=== PATIENT | male | born 1970 | race Caucasian/White ===

== ENCOUNTER → 2018-09-17 09:31 | Outpatient (CLI) | payer MEDICARE, SELFPAY ==
[2018-09-17 09:03] VITALS: BMI 44.6
== END ==
PROVIDERS: Family Provider Family Medicine; PCP Family Medicine; Visit Provider Family Medicine
DX: E29.1 Testicular hypofunction (principal)
CPT/HCPCS: 36415; 84403

== ENCOUNTER → 2018-12-30 08:57 | Outpatient (CLI) | payer MEDICARE, SELFPAY ==
[2018-12-30 08:37] VITALS: BMI 44.6
[2018-12-30 12:49] LABS: Erythrocyte Sedimentation Rate 5 mm/hr (0-15)
== END ==
PROVIDERS: Family Provider Family Medicine; PCP Family Medicine; Visit Provider Family Medicine
DX: E29.1 Testicular hypofunction (principal); G89.29 Other chronic pain
CPT/HCPCS: 36415; 84403; 85652

== ENCOUNTER → 2019-03-31 10:58 | Outpatient (CLI) | payer MEDICARE, SELFPAY ==
[2019-03-31 10:24] VITALS: BMI 44.6
== END ==
PROVIDERS: Family Provider Family Medicine; PCP Family Medicine; Visit Provider Family Medicine
DX: E29.1 Testicular hypofunction (principal)
CPT/HCPCS: 36415; 84403

== ENCOUNTER → 2020-01-20 15:13 | Outpatient (CLI) | payer MEDICARE, SELFPAY ==
[2020-01-20 14:39] VITALS: BMI 44.6
[2020-01-20 16:55] LABS: Hematocrit 51.1 % (40-54); Hemoglobin 16.8 g/dL (13.0-16.5); Mean Corp Hgb Conc 32.9 g/dL (32-36); Mean Corpuscular Hgb 31.5 pg (27.0-32.0); Mean Corpuscular Volume 95.9 fL (80-94); Mean Platelet Vol. 11.1 fl (6.2-12.0); Platelet Count 245 K/mm3 (150-450); RBC Distribution Width CV 13.4 % (11.6-14.6); RBC Distribution Width SD 47.1 fl (35.1-43.9); Red Blood Count 5.33 M/mm3 (4.6-6.2); White Blood Count 7.2 K/mm3 (4.4-11.0)
[2020-01-20 17:17] LABS: PSA,Total- Diagnostic 0.59 ng/mL (0.0-4.0)
== END ==
PROVIDERS: PCP Family Medicine; Referring Provider Family Medicine; Visit Provider Family Medicine
DX: E78.2 Mixed hyperlipidemia (principal); N40.0 Benign prostatic hyperplasia without lower urinary tract symptoms; E29.1 Testicular hypofunction
CPT/HCPCS: 36415; 84153; 84403; 85027

== ENCOUNTER → 2020-07-26 10:23 | Outpatient (CLI) | payer MEDICARE, SELFPAY ==
[2020-07-26 12:39] LABS: Absolute Lymphocyte Count 1.04 X10^3/uL (0.83-4.51); Absolute Neutrophil Count 6.2 X10^3/uL (2.0-7.7); Basophil# 0.02 X10^3/uL; Basophil% 0.3 % (0-1); Eosinophil# 0.05 X10^3/uL; Eosinophils% 0.6 % (0-5); Hematocrit 53.1 % (40-54); Lymphocyte # 1.04 X10^3/ul (4.0); Lymphocyte % 13.2 % (19-41); Mean Corp Hgb Conc 34.1 g/dL (32-36); Mean Corpuscular Hgb 31.8 pg (27.0-32.0); Mean Corpuscular Volume 93.3 fL (80-94); Mean Platelet Vol. 11.4 fl (6.2-12.0); Monocyte# 0.54 X10^3/uL; Monocyte% 6.9 % (0-10); NRBC Flagged by Analyzer 0 % (0-5); Neutrophil # 6.18 X10^3/uL (2.7-7.7); Neutrophil % 78.4 % (47-70); Platelet Count 257 K/mm3 (150-450); RBC Distribution Width CV 12.6 % (11.6-14.6); Red Blood Count 5.69 M/mm3 (4.6-6.2); White Blood Count 7.9 K/mm3 (4.4-11.0)
[2020-07-26 12:55] LABS: ALB/GLOB Ratio 1.2 RATIO (0.9-2.4); AST(SGOT) 38 U/L (15-37); Alanine Aminotransfer ALT/SGPT 65 U/L (16-61); Albumin, Serum 4.4 g/dL (3.2-5.0); Alkaline Phosphatase 73 U/L (45-117); Anion Gap 5 (5-15); BUN 11 mg/dL (7-18); BUN/Creat Ratio 11.1 RATIO (10-20); Calcium,Total 9.2 mg/dL (8.5-10.1); Chloride 104 mmol/L (98-107); Creatinine, Serum 0.99 mg/dL (0.70-1.30); Differential Indicated SCAN CRITERIA MET; EST Glomerular Filtration Rate 85 mL/min (>60); Est Glom Filt Rate - Afr Amer 103 mL/min (>60); Globulin 3.6 g/dL (2.2-4.2); Glucose 95 mg/dL (74-106); Hemoglobin 18.1 g/dL (13.0-16.5); Potassium 4.2 mmol/L (3.5-5.1); Sodium Level 138 mmol/L (136-145)
[2020-07-27 13:59] LABS: Pathologist Review Reviewed
== END ==
PROVIDERS: Internal Medicine; PCP Family Medicine; Referring Provider Family Medicine; Visit Provider Family Medicine
DX: I10 Essential (primary) hypertension (principal); E29.1 Testicular hypofunction
CPT/HCPCS: 36415; 80053; 84403; 85025

== ENCOUNTER → 2020-11-07 14:02 | Outpatient (CLI) | payer MEDICARE, SELFPAY ==
[2020-11-07 13:29] VITALS: BMI 46.1
[2020-11-07 15:49] LABS: Absolute Lymphocyte Count 0.86 X10^3/uL (0.83-4.51); Basophil# 0.03 X10^3/uL; Basophil% 0.3 % (0-1); Eosinophil# 0.06 X10^3/uL; Eosinophils% 0.6 % (0-5); Hematocrit 50.3 % (40-54); Hemoglobin 16.8 g/dL (13.0-16.5); Lymphocyte # 0.86 X10^3/ul (0.83-4.51); Mean Corp Hgb Conc 33.4 g/dL (32-36); Mean Corpuscular Hgb 32.1 pg (27.0-32.0); Monocyte# 0.62 X10^3/uL; Monocyte% 6.5 % (0-10); NRBC Flagged by Analyzer 0 % (0-5); Neutrophil # 7.97 X10^3/uL (2.7-7.7); Neutrophil % 83.1 % (47-70); Platelet Count 238 K/mm3 (150-450); RBC Distribution Width CV 13.2 % (11.6-14.6); RBC Distribution Width SD 47.2 fl (35.1-43.9); Red Blood Count 5.24 M/mm3 (4.6-6.2); White Blood Count 9.6 K/mm3 (4.4-11.0)
[2020-11-07 16:16] LABS: Anion Gap 5 (5-15); BUN 12 mg/dL (7-18); Calcium,Total 9.1 mg/dL (8.5-10.1); Chloride 102 mmol/L (98-107); EST Glomerular Filtration Rate 84 mL/min (>60); Est Glom Filt Rate - Afr Amer 101 mL/min (>60); Glucose 84 mg/dL (74-106); Potassium 4.1 mmol/L (3.5-5.1); Sodium Level 138 mmol/L (136-145)
== END ==
PROVIDERS: PCP Family Medicine; Referring Provider Family Medicine; Visit Provider Family Medicine
DX: L93.0 Discoid lupus erythematosus (principal); I10 Essential (primary) hypertension
CPT/HCPCS: 36415; 80048; 85025

== ENCOUNTER → 2021-02-06 09:02 | Outpatient (CLI) | payer MEDICARE, SELFPAY | PROVIDERS: PCP Family Medicine; Referring Provider Family Medicine; Visit Provider Family Medicine | DX: E29.1 Testicular hypofunction (principal) | CPT/HCPCS: 36415; 84403 ==

== ENCOUNTER → 2021-05-08 09:55 | Outpatient (CLI) | payer MEDICARE, SELFPAY ==
[2021-05-08 12:21] LABS: Absolute Lymphocyte Count 1.46 X10^3/uL (0.83-4.51); Absolute Neutrophil Count 8.1 X10^3/uL (2.0-7.7); Basophil# 0.04 X10^3/uL; Basophil% 0.4 % (0-1); Eosinophil# 0.07 X10^3/uL; Eosinophils% 0.7 % (0-5); Hematocrit 49.3 % (40-54); Hemoglobin 16.6 g/dL (13.0-16.5); Lymphocyte # 1.46 X10^3/ul (0.83-4.51); Lymphocyte % 13.9 % (19-41); Mean Corp Hgb Conc 33.7 g/dL (32-36); Mean Corpuscular Hgb 31.9 pg (27.0-32.0); Mean Corpuscular Volume 94.8 fL (80-94); Mean Platelet Vol. 10.8 fl (6.2-12.0); Monocyte# 0.77 X10^3/uL; Monocyte% 7.3 % (0-10); NRBC Flagged by Analyzer 0 % (0-5); Neutrophil % 77.1 % (47-70); Platelet Count 310 K/mm3 (150-450); RBC Distribution Width CV 13.2 % (11.6-14.6); RBC Distribution Width SD 46.3 fl (35.1-43.9); White Blood Count 10.5 K/mm3 (4.4-11.0)
[2021-05-08 12:36] LABS: AST(SGOT) 32 U/L (15-37); Alanine Aminotransfer ALT/SGPT 50 U/L (16-61); Alkaline Phosphatase 68 U/L (45-117); Anion Gap 7 (5-15); BUN 11 mg/dL (7-18); BUN/Creat Ratio 12.7 RATIO (10-20); Calcium,Total 9.1 mg/dL (8.5-10.1); Chloride 101 mmol/L (98-107); Creatinine, Serum 0.86 mg/dL (0.70-1.30); EST Glomerular Filtration Rate 99 mL/min (>60); Est Glom Filt Rate - Afr Amer 120 mL/min (>60); Globulin 3.9 g/dL (2.2-4.2); Glucose 93 mg/dL (74-106); PSA,Total- Diagnostic 0.64 ng/mL (0.0-4.0); Potassium 3.9 mmol/L (3.5-5.1); Protein, Total 7.9 g/dL (6.4-8.2); Sodium Level 139 mmol/L (136-145)
== END ==
PROVIDERS: PCP Family Medicine; Referring Provider Family Medicine; Visit Provider Family Medicine
DX: J84.117 Desquamative interstitial pneumonia (principal); I10 Essential (primary) hypertension; E29.1 Testicular hypofunction
CPT/HCPCS: 36415; 80053; 84153; 85025

== ENCOUNTER 2021-08-07 09:28 | Outpatient (CLI) | payer MEDICARE, SELFPAY | END 2021-08-07 23:59 | disposition home or self-care (01) | PROVIDERS: PCP Family Medicine; Referring Provider Family Medicine; Visit Provider Family Medicine | DX: E29.1 Testicular hypofunction (principal) | CPT/HCPCS: 36415; 84403 ==

== ENCOUNTER → 2021-10-23 | Outpatient (CLI) | payer MEDICARE, SELFPAY ==
[2021-10-23 12:08] LABS: Absolute Lymphocyte Count 1.92 X10^3/uL (0.83-4.51); Absolute Neutrophil Count 6.3 X10^3/uL (2.0-7.7); Basophil# 0.03 X10^3/uL; Basophil% 0.3 % (0-1); Eosinophil# 0.08 X10^3/uL; Eosinophils% 0.9 % (0-5); Hematocrit 46.4 % (40-54); Lymphocyte # 1.92 X10^3/ul (0.83-4.51); Lymphocyte % 21.8 % (19-41); Mean Corp Hgb Conc 34.5 g/dL (32-36); Mean Corpuscular Hgb 31.5 pg (27.0-32.0); Mean Corpuscular Volume 91.3 fL (80-94); Mean Platelet Vol. 11.1 fl (6.2-12.0); Monocyte% 5.7 % (0-10); NRBC Flagged by Analyzer 0 % (0-5); Neutrophil # 6.25 X10^3/uL (2.7-7.7); Neutrophil % 71.1 % (47-70); Platelet Count 271 K/mm3 (150-450); RBC Distribution Width CV 12.9 % (11.6-14.6); RBC Distribution Width SD 43.2 fl (35.1-43.9); Red Blood Count 5.08 M/mm3 (4.6-6.2); White Blood Count 8.8 K/mm3 (4.4-11.0)
== END | disposition home or self-care (01) ==
LOC: BIMLAB 10:03
PROVIDERS: Internal Medicine; PCP Family Medicine; Referring Provider Family Medicine; Visit Provider Family Medicine
DX: E29.1 Testicular hypofunction (principal)
CPT/HCPCS: 36415; 84403; 85025

== ENCOUNTER → 2021-11-23 | Outpatient (CLI) | payer MEDICARE, SELFPAY | END | disposition home or self-care (01) | LOC: BIMLAB 08:05 | PROVIDERS: PCP Family Medicine; Referring Provider Family Medicine; Visit Provider Family Medicine | DX: E29.1 Testicular hypofunction (principal) | CPT/HCPCS: 36415; 84403 ==

== ENCOUNTER → 2022-03-13 | Outpatient (CLI) | payer MEDICARE, SELFPAY ==
[2022-03-13 12:42] LABS: Absolute Lymphocyte Count 3.71 X10^3/uL (0.83-4.51); Absolute Neutrophil Count 4.7 X10^3/uL (2.0-7.7); Basophil# 0.04 X10^3/uL; Basophil% 0.4 % (0-1); Eosinophil# 0.07 X10^3/uL; Eosinophils% 0.7 % (0-5); Hematocrit 49.1 % (40-54); Lymphocyte # 3.71 X10^3/ul (0.83-4.51); Lymphocyte % 39.4 % (19-41); Mean Corp Hgb Conc 32.6 g/dL (32-36); Mean Corpuscular Hgb 31.2 pg (27.0-32.0); Mean Corpuscular Volume 95.7 fL (80-94); Mean Platelet Vol. 10.8 fl (6.2-12.0); Monocyte# 0.89 X10^3/uL; Monocyte% 9.5 % (0-10); NRBC Flagged by Analyzer 0 % (0-5); Neutrophil # 4.66 X10^3/uL (2.7-7.7); Neutrophil % 49.6 % (47-70); Platelet Count 368 K/mm3 (150-450); RBC Distribution Width CV 13.2 % (11.6-14.6); RBC Distribution Width SD 47.1 fl (35.1-43.9); Red Blood Count 5.13 M/mm3 (4.6-6.2); White Blood Count 9.4 K/mm3 (4.4-11.0)
== END | disposition home or self-care (01) ==
LOC: BIMLAB 09:49
PROVIDERS: PCP Family Medicine; Referring Provider Family Medicine; Visit Provider Family Medicine
DX: I10 Essential (primary) hypertension (principal); E29.1 Testicular hypofunction
CPT/HCPCS: 36415; 84403; 85025

== ENCOUNTER → 2022-06-19 | Outpatient (CLI) | payer MEDICARE, SELFPAY ==
[2022-06-19 13:15] LABS: ALB/GLOB Ratio 1.4 RATIO (0.9-2.4); AST(SGOT) 30 U/L (15-37); Alanine Aminotransfer ALT/SGPT 56 U/L (16-61); Albumin, Serum 4.4 g/dL (3.2-5.0); Alkaline Phosphatase 62 U/L (45-117); Anion Gap 7 (5-15); BUN 12 mg/dL (7-18); BUN/Creat Ratio 13.3 RATIO (10-20); Calcium,Total 8.7 mg/dL (8.5-10.1); Chloride 106 mmol/L (98-107); EST Glomerular Filtration Rate 94 mL/min (>60); Est Glom Filt Rate - Afr Amer 113 mL/min (>60); Globulin 3.1 g/dL (2.2-4.2); Glucose 91 mg/dL (74-106); Potassium 4.1 mmol/L (3.5-5.1); Protein, Total 7.5 g/dL (6.4-8.2); Sodium Level 138 mmol/L (136-145)
== END | disposition home or self-care (01) ==
LOC: BIMLAB 10:02
PROVIDERS: PCP Family Medicine; Referring Provider Family Medicine; Visit Provider Family Medicine
DX: I10 Essential (primary) hypertension (principal); E29.1 Testicular hypofunction
CPT/HCPCS: 36415; 80053; 84403

== ENCOUNTER → 2022-09-17 | Outpatient (CLI) | payer MEDICARE, SELFPAY ==
[2022-09-17 15:23] LABS: Absolute Lymphocyte Count 1.78 X10^3/uL (0.83-4.51); Absolute Neutrophil Count 6.2 X10^3/uL (2.0-7.7); Basophil# 0.03 X10^3/uL; Basophil% 0.3 % (0-1); Eosinophil# 0.03 X10^3/uL; Eosinophils% 0.3 % (0-5); Hematocrit 51.2 % (40-54); Hemoglobin 16.8 g/dL (13.0-16.5); Lymphocyte # 1.78 X10^3/ul (0.83-4.51); Lymphocyte % 20.6 % (19-41); Mean Corp Hgb Conc 32.8 g/dL (32-36); Mean Corpuscular Hgb 30.9 pg (27.0-32.0); Mean Corpuscular Volume 94.1 fL (80-94); Mean Platelet Vol. 11.1 fl (6.2-12.0); Monocyte# 0.56 X10^3/uL; Monocyte% 6.5 % (0-10); NRBC Flagged by Analyzer 0 % (0-5); Neutrophil # 6.19 X10^3/uL (2.7-7.7); Neutrophil % 71.8 % (47-70); Platelet Count 295 K/mm3 (150-450); RBC Distribution Width CV 13.5 % (11.6-14.6); RBC Distribution Width SD 46.6 fl (35.1-43.9); Red Blood Count 5.44 M/mm3 (4.6-6.2); White Blood Count 8.6 K/mm3 (4.4-11.0)
[2022-09-17 15:34] LABS: PSA,Total- Diagnostic 0.93 ng/mL (0.0-4.0)
== END | disposition home or self-care (01) ==
LOC: BIMLAB 12:03
PROVIDERS: PCP Family Medicine; Referring Provider Family Medicine; Visit Provider Family Medicine
DX: E29.1 Testicular hypofunction (principal); N40.1 Benign prostatic hyperplasia with lower urinary tract symptoms; R35.1 Nocturia; I10 Essential (primary) hypertension
CPT/HCPCS: 36415; 84153; 84403; 85025

== ENCOUNTER → 2023-06-25 | Outpatient (CLI) | payer MEDICARE, SELFPAY ==
--- OUTSIDE RECORDS SUMMARY | 2023-06-25 12:27 | XMS RPT_ITS | CCD ---
Author Name Unknown Address [address] [place] [address] Organization [facility] Care Team Providers Care Button Spindler Name Role Phone Brown DO, Jennyfer R Primary Care Provider Mark Sanchez MD Unavailable Brown, Jennyfer R Primary Care Provider BROWN, JENNYFER Primary Care Unavailable YNES HA Attending Unavailable HIGHLAND, JOSE B Referring Unavailable BROWN, JENNYFER R Primary Care Unavailable HIGHLAND, JOSE B Referring Unavailable BROWN, JENNYFER R Primary Care Unavailable Brown DO, Jennyfer R Primary Care Provider Mark Sanchez MD Unavailable [phone] BROWN, JENNYFER R Primary Care Unavailable HIGHLAND, JOSE B Referring Unavailable BROWN, JENNYFER R Primary Care Unavailable GLENNIE, GELA Referring Unavailable BROWN, JENNYFER R Primary Care Unavailable GLENNIE, GELA Referring Unavailable BROWN, JENNYFER R Primary Care Unavailable GLENNIE, GELA Referring Unavailable BROWN, JENNYFER R Primary Care Unavailable HIGHLAND, JOSE B Referring Unavailable BROWN, JENNYFER R Primary Care Unavailable AIDENIE GELA Attending Unavailable BROWN, JENNYFER R Primary Care Unavailable HIGHLAND, JOSE B Referring Unavailable BROWN, JENNYFER R Primary Care Unavailable HIGHLAND, JOSE B Referring Unavailable HIGHLAND, JOSE B Attending Unavailable BROWN, JENNYFER R Primary Care Unavailable HIGHLAND, JOSE B Referring Unavailable BROWN, JENNYFER R Primary Care Unavailable HIGHLAND, JOSE B Attending Unavailable HIGHLAND, JOSE B Referring Unavailable HIGHLAND, JOSE B Referring Unavailable BROWN, JENNYFER R Primary Care Unavailable HIGHLAND, JOSE B Attending Unavailable BROWN, JENNYFER R Primary Care Unavailable HIGHLAND, JOSE B Referring Unavailable BROWN, JENNYFER R Primary Care Unavailable BROWN, JENNYFER R Primary Care Unavailable HIGHLAND, JOSE B Referring Unavailable BROWN, JENNYFER R Primary Care Unavailable BRAD, JOSE B Referring Unavailable GELA JORDAN Referring Unavailable BROWNJENNYFER R Primary Care Unavailable BROWNJENNYFER R Primary Care Unavailable BRAD, JOSE B Referring Unavailable BROWNJENNYFER R Primary Care Unavailable MARIBELAND, JOSE B Attending Unavailable BRAD, JOSE B Referring Unavailable GELA JORDAN Attending Unavailable BROWNLUCEROJENNYFER R Primary Care Unavailable BROWN, JENNYFER R Primary Care Unavailable BRAD, JOSE B Referring Unavailable TOSHIAGELA EVANGELISTA Referring Unavailable BROWNLUCEROJENNYFER R Primary Care Unavailable BROWN, JENNYFER R Primary Care Unavailable EDDYVILLE, JOSE B Referring Unavailable BROWNLUCEROJENNYFER R Primary Care Unavailable EDDYVILLE, JOSE B Referring Unavailable Medications Current Medications Medication Drug Class(es) Dates Sig (Normalized) Sig (Original) acetaminophen 325 mg oral tablet (2 sources) Start: 09-05-2021 End: 09-08-2021 acetaminophen 650 mg tab(s) (TYLENOL) diphenhydrAMINE hydrochloride 25 mg oral capsule (4 sources) Histamine-1 Receptor Antagonist Start: 09-05-2021 End: 09-08-2021 diphenhydrAMINE 50 mg (BENADRYL) Completed/Discontinued Medications Medication Drug Class(es) Dates Sig (Normalized) Sig (Original) acetaminophen 325 mg / oxyCODONE hydrochloride 7.5 mg oral tablet (20 sources) Opioid Agonist End: 02-26-2023 take 1 tablet by mouth every twelve hours as needed oxyCODONE-acetamino phen (PERCOCET) 7.5-325 mg tablet Take 1 tablet by mouth every 12 hours as needed for pain. 0 02/26/2023 Discontinued Problems Active Problems Problem Classification Problem Date Documented Date Episodic/Chronic Cardiac dysrhythmias (20 sources) Tachycardia; Translations: [Tachycardia, unspecified] 11-18-2017 Episodic Open wounds of extremities (8 sources) Laceration of left ring finger; Translations: [Laceration without foreign body of left ring finger without damage to nail, initial encounter] Onset: 02-06-2023 02-06-2023 Episodic Osteoarthritis (2 sources) Arthritis; Translations: [Unspecified osteoarthritis, unspecified site] Chronic Other aftercare (3 sources) Taking high risk medication; Translations: [Other usp (current) drug therapy] Episodic Other aftercare (2 sources) Other usp (current) drug therapy; Translations: [High risk medication use] Onset: 05-03-2022 Episodic Other circulatory disease (1 source) Other specified symptoms and signs involving the circulatory and respiratory systems; Translations: [Other symptoms involving cardiovascular system] Episodic Other ear and sense organ disorders (1 source) Impacted cerumen of bilateral ears; Translations: [Impacted cerumen, bilateral] Episodic Other endocrine disorders (20 sources) Male hypogonadism; Translations: [Testicular hypofunction] Onset: 12-09-2018 12-09-2018 Chronic Other infections; including parasitic (1 source) Personal history of other infectious and parasitic diseases; Translations: [History of COVID-19] 02-26-2023 Episodic Other lower respiratory disease (20 sources) Desquamative interstitial pneumonia; 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] Onset: 03-28-2014 03-28-2014 Chronic Other lower respiratory disease (20 sources) Interstitial pneumonia; Translations: [Other specified interstitial pulmonary diseases] Onset: 03-28-2014 03-28-2014 Chronic Other lower respiratory disease (20 sources) Interstitial lung disease; Translations: [Interstitial pulmonary disease, unspecified] Onset: 09-20-2015 06-11-2021 Chronic Other lower respiratory disease (3 sources) Interstitial pulmonary disease, unspecified; Translations: [ILD (interstitial lung disease) (HCC)] Onset: 06-11-2021 Chronic Other lower respiratory disease (6 sources) Dyspnea; Translations: [Dyspnea, unspecified] Episodic Other lower respiratory disease (1 source) Chronic cough; Translations: [Chronic cough] 02-26-2023 Episodic Other nutritional; endocrine; and metabolic disorders (20 sources) Obesity; Translations: [Obesity, unspecified] Onset: 08-16-2015 06-11-2021 Chronic Other nutritional; endocrine; and metabolic disorders (1 source) Severe obesity; Translations: [Morbid (severe) obesity due to excess calories] 04-14-2023 Chronic Other upper respiratory disease (1 source) Nasal congestion; Translations: [Nasal congestion] 02-26-2023 Episodic Pulmonary heart disease (2 sources) Pulmonary hypertension; Translations: [Pulmonary hypertension, unspecified] Onset: 08-15-2022 Chronic Residual codes; unclassified (20 sources) Obstructive sleep apnea syndrome; Translations: [Obstructive sleep apnea (adult) (pediatric)] Onset: 09-20-2015 06-11-2021 Chronic Residual codes; unclassified (1 source) Patient encounter status; Translations: [Encounter for prophylactic measures, unspecified] Episodic Rheumatoid arthritis and related disease (20 sources) Inflammatory polyarthropathy; Translations: [Inflammatory polyarthropathy] Onset: 11-06-2017 11-06-2017 Chronic Systemic lupus erythematosus and connective tissue disorders (20 sources) Systemic lupus erythematosus; Translations: [Systemic lupus erythematosus, unspecified] Onset: 10-10-2014 10-10-2014 Chronic Past or Other Problems Problem Classification Problem Date Documented Date Episodic/Chronic Crushing injury or internal injury (20 sources) Acute lung injury; Translations: [Unspecified injury of lung, unspecified, initial encounter] Onset: 03-28-2014 03-28-2014 Episodic Malaise and fatigue (4 sources) Malaise and fatigue; Translations: [Other malaise] Onset: 08-07-2022 Episodic Other lower respiratory disease (1 source) Dyspnea, unspecified; Translations: [Dyspnea and respiratory abnormalities] Onset: 08-07-2022 Episodic Other lower respiratory disease (1 source) Other abnormalities of breathing; Translations: [Dyspnea and respiratory abnormalities] Onset: 08-07-2022 Episodic Respiratory failure; insufficiency; arrest (adult) (20 sources) Acute respiratory failure; Translations: [Acute respiratory failure with hypoxia] Onset: 06-10-2021 06-11-2021 Episodic Viral infection (20 sources) Disease caused by 2019-nCoV; Translations: [COVID-19] Onset: 06-11-2021 06-11-2021 Episodic Results Test Name Value Interpretation Reference Range Facil ity Vital Signs Date Time Vital Sign Value Performing Clinician Markos goodwin 04-14-2023 08:53-0400 Body temperature 97.59 [degF] Jose Walter MD Work Phone: [facility] 04-14-2023 08:53-0400 Body weight 140.61 kg Jose Walter MD Work Phone: [facility] 04-14-2023 08:53-0400 Diastolic blood pressure 84 mm[Hg] Jose Walter MD Work Phone: [facility] 04-14-2023 08:53-0400 Heart rate 105 /min Jose Walter MD Work Phone: [facility] 04-14-2023 08:53-0400 Respiratory rate 16 /min Jose Walter MD Work Phone: [facility] 04-14-2023 08:53-0400 SaO2% (BldA) [Mass fraction] 98 % Jose Walter MD Work Phone: [facility] 04-14-2023 08:53-0400 Systolic blood pressure 137 mm[Hg] Jose Walter MD Work Phone: [facility] 04-14-2023 07:00-0400 Body height 174 cm Pulm Addon Work Phone: [facility] 04-14-2023 07:00-0400 Body weight 140.62 kg Pulm Addon Work Phone: [facility] 02-06-2023 20:34-0400 Body temperature 97.81 [degF] Ynes Ha MD Work Phone: [facility] 02-06-2023 20:34-0400 Diastolic blood pressure 66 mm[Hg] Ynes Ha MD Work Phone: [facility] 02-06-2023 20:34-0400 Heart rate 109 /min Ynes Ha MD Work Phone: [facility] 02-06-2023 20:34-0400 Respiratory rate 18 /min Ynes Ha MD Work Phone: [facility] 02-06-2023 20:34-0400 SaO2% (BldA) [Mass fraction] 98 % Ynes Ha MD Work Phone: [facility] 02-06-2023 20:34-0400 Systolic blood pressure 110 mm[Hg] Ynes Ha MD Work Phone: [facility] 12-03-2022 11:24-0400 Body temperature 97.81 [degF] Jose Walter MD Work Phone: [facility] 12-03-2022 11:24-0400 Body weight 137.8 kg Pulm 2 Work Phone: [facility] 12-03-2022 11:24-0400 Diastolic blood pressure 88 mm[Hg] Jose Walter MD Work Phone: [facility] 12-03-2022 11:24-0400 Heart rate 95 /min Jose Walter MD Work Phone: [facility] 12-03-2022 11:24-0400 Respiratory rate 18 /min Jose Walter MD Work Phone: [facility] 12-03-2022 11:24-0400 SaO2% (BldA) [Mass fraction] 98 % Jose Walter MD Work Phone: [facility] 12-03-2022 11:24-0400 Systolic blood pressure 130 mm[Hg] Jose Walter MD Work Phone: [facility] 12-03-2022 10:00-0400 Body height 174 cm Pulm 2 Work Phone: [facility] 08-07-2022 13:02-0500 Body temperature 97.81 [degF] Jose Walter MD Work Phone: [facility] 08-07-2022 13:02-0500 Body weight 136.08 kg Jose Walter MD Work Phone: [facility] 08-07-2022 13:02-0500 Diastolic blood pressure 77 mm[Hg] Jose Walter MD Work Phone: [facility] 08-07-2022 13:02-0500 Heart rate 106 /min Jose Walter MD Work Phone: [facility] 08-07-2022 13:02-0500 Respiratory rate 18 /min Jose Walter MD Work Phone: [facility] 08-07-2022 13:02-0500 SaO2% (BldA) [Mass fraction] 96 % Jose Walter MD Work Phone: [facility] 08-07-2022 13:02-0500 Systolic blood pressure 106 mm[Hg] Jose Walter MD Work Phone: [facility] 08-07-2022 12:00-0500 Body height 173.8 cm Pulm 7 [facility] 08-07-2022 12:00-0500 Body weight 141 kg Pulm 7 [facility] 05-07-2022 12:43-0500 Body height 172.7 cm Gela Glennie INVENTORY TAKER.DIRECTOR HOME Work Phone: [facility] 05-07-2022 12:43-0500 Body temperature 96.91 [degF] Gela Glennie INVENTORY TAKER.DIRECTOR HOME Work Phone: [facility] 05-07-2022 12:43-0500 Body weight 144.24 kg Gela Glennie INVENTORY TAKER.DIRECTOR HOME Work Phone: [facility] 05-07-2022 12:43-0500 Diastolic blood pressure 81 mm[Hg] Gela Glennie INVENTORY TAKER.DIRECTOR HOME Work Phone: [facility] 05-07-2022 12:43-0500 Heart rate 96 /min Gela Glennie INVENTORY TAKER.DIRECTOR HOME Work Phone: [facility] 05-07-2022 12:43-0500 Respiratory rate 18 /min Gela Glennie INVENTORY TAKER.DIRECTOR HOME Work Phone: [facility] 05-07-2022 12:43-0500 SaO2% (BldA) [Mass fraction] 97 % Gela Glennie INVENTORY TAKER.DIRECTOR HOME Work Phone: [facility] 05-07-2022 12:43-0500 Systolic blood pressure 133 mm[Hg] Gela Glennie INVENTORY TAKER.DIRECTOR HOME Work Phone: [facility] 04-10-2022 13:32-0400 Body temperature 97.81 [degF] Nurse Nathan10 [facility] 04-10-2022 13:32-0400 Diastolic blood pressure 65 mm[Hg] Nurse Nathan10 [facility] 04-10-2022 13:32-0400 Heart rate 95 /min Nurse Nathan10 [facility] 04-10-2022 13:32-0400 Respiratory rate 22 /min Nurse A110 [facility] 04-10-2022 13:32-0400 SaO2% (BldA) [Mass fraction] 96 % Nurse A110 [facility] 04-10-2022 13:32-0400 Systolic blood pressure 124 mm[Hg] Nurse A110 [facility] 04-10-2022 08:09-0400 Body weight 142.88 kg Nurse 10 [facility] 02-20-2022 11:38-0400 Body height 172.7 cm Beth Ball INVENTORY TAKER.DIRECTOR HOME Work Phone: [facility] 02-20-2022 11:38-0400 Body temperature 98.1 [degF] Beth Ball INVENTORY TAKER.DIRECTOR HOME Work Phone: [facility] 02-20-2022 11:38-0400 Body weight 140.62 kg Beth Ball INVENTORY TAKER.DIRECTOR HOME Work Phone: [facility] 02-20-2022 11:38-0400 Diastolic blood pressure 85 mm[Hg] Beth Ball INVENTORY TAKER.DIRECTOR HOME Work Phone: [facility] 02-20-2022 11:38-0400 Heart rate 101 /min Beth Ball INVENTORY TAKER.DIRECTOR HOME Work Phone: [facility] 02-20-2022 11:38-0400 Respiratory rate 16 /min Beth Ball INVENTORY TAKER.DIRECTOR HOME Work Phone: [facility] 02-20-2022 11:38-0400 SaO2% (BldA) [Mass fraction] 97 % Beth Ball INVENTORY TAKER.DIRECTOR HOME Work Phone: [facility] 02-20-2022 11:38-0400 Systolic blood pressure 136 mm[Hg] Beth Ball INVENTORY TAKER.DIRECTOR HOME Work Phone: [facility] 01-21-2022 09:28-0400 Body height 172.7 cm Jose Walter MD Work Phone: [facility] 01-21-2022 09:28-0400 Body weight 139.1 kg Pulm 2 Work Phone: [facility] 01-21-2022 09:28-0400 Diastolic blood pressure 88 mm[Hg] Jose Walter MD Work Phone: [facility] 01-21-2022 09:28-0400 Heart rate 104 /min Jose Walter MD Work Phone: [facility] 01-21-2022 09:28-0400 Respiratory rate 18 /min Jose Walter MD Work Phone: [facility] 01-21-2022 09:28-0400 SaO2% (BldA) [Mass fraction] 96 % Jose Walter MD Work Phone: [facility] 01-21-2022 09:28-0400 Systolic blood pressure 123 mm[Hg] Jose Walter MD Work Phone: [facility] 01-21-2022 09:00-0400 Body height 174 cm Pul 2 Work Phone: [facility] 12-12-2021 12:09-0400 Body temperature 98.2 [degF] Nurse [address] 12-12-2021 12:09-0400 Diastolic blood pressure 78 mm[Hg] Nurse [address] 12-12-2021 12:09-0400 Heart rate 94 /min Nurse [address] 12-12-2021 12:09-0400 Respiratory rate 20 /min Nurse [address] 12-12-2021 12:09-0400 SaO2% (BldA) [Mass fraction] 99 % Nurse [address] 12-12-2021 12:09-0400 Systolic blood pressure 127 mm[Hg] Nurse [address] 12-12-2021 07:26-0400 Body weight 141.07 kg Nurse [address] 11-23-2021 15:55-0400 Body temperature 97.81 [degF] Nurse [address] 11-23-2021 15:55-0400 Diastolic blood pressure 79 mm[Hg] Nurse [address] 11-23-2021 15:55-0400 Heart rate 98 /min Nurse [address] 11-23-2021 15:55-0400 Respiratory rate 24 /min Nurse [facility] 11-23-2021 15:55-0400 SaO2% (BldA) [Mass fraction] 98 % Nurse A110 [facility] 11-23-2021 15:55-0400 Systolic blood pressure 137 mm[Hg] Nurse A110 [facility] 11-23-2021 10:30-0400 Body weight 139.25 kg Nurse A110 [facility] 10-22-2021 09:59-0400 Body height 175.3 cm Jose Walter MD Work Phone: [facility] 10-22-2021 09:59-0400 Body temperature 97.9 [degF] Jose Walter MD Work Phone: [facility] 10-22-2021 09:59-0400 Body weight 138.3 kg Pulm 4 [facility] 10-22-2021 09:59-0400 Diastolic blood pressure 89 mm[Hg] Jose Walter MD Work Phone: [facility] 10-22-2021 09:59-0400 Heart rate 103 /min Jose Walter MD Work Phone: [facility] 10-22-2021 09:59-0400 SaO2% (BldA) [Mass fraction] 98 % Jose Walter MD Work Phone: [facility] 10-22-2021 09:59-0400 Systolic blood pressure 132 mm[Hg] Jose Walter MD Work Phone: [facility] 10-22-2021 08:00-0400 Body height 174 cm Pulm 4 [facility] 09-05-2021 11:33-0400 Body height 175.3 cm Gela Glennie INVENTORY TAKER.DIRECTOR HOME Work Phone: [facility] 09-05-2021 11:33-0400 Body temperature 97.39 [degF] Gela Glennie INVENTORY TAKER.DIRECTOR HOME Work Phone: [facility] 09-05-2021 11:33-0400 Body weight 142.43 kg Gela Glennie INVENTORY TAKER.DIRECTOR HOME Work Phone: [facility] 09-05-2021 11:33-0400 Diastolic blood pressure 95 mm[Hg] Gela Glennie INVENTORY TAKER.DIRECTOR HOME Work Phone: [facility] 09-05-2021 11:33-0400 Heart rate 104 /min Gela Glennie INVENTORY TAKER.DIRECTOR HOME Work Phone: [facility] 09-05-2021 11:33-0400 Respiratory rate 18 /min Gela Glennie INVENTORY TAKER.DIRECTOR HOME Work Phone: [facility] 09-05-2021 11:33-0400 SaO2% (BldA) [Mass fraction] 95 % Gela Glennie INVENTORY TAKER.DIRECTOR HOME Work Phone: [facility] 09-05-2021 11:33-0400 Systolic blood pressure 138 mm[Hg] Gela Glennie INVENTORY TAKER.DIRECTOR HOME Work Phone: [facility] 09-05-2021 11:12-0400 Body temperature 97.9 [degF] Nurse 1 Work Phone: [facility] 09-05-2021 11:12-0400 Diastolic blood pressure 87 mm[Hg] Nurse 1 Work Phone: [facility] 09-05-2021 11:12-0400 Heart rate 103 /min Nurse 1 Work Phone: [facility] 09-05-2021 11:12-0400 Respiratory rate 20 /min Nurse 1 Work Phone: [facility] 09-05-2021 11:12-0400 SaO2% (BldA) [Mass fraction] 98 % Nurse 1 Work Phone: [facility] 09-05-2021 11:12-0400 Systolic blood pressure 144 mm[Hg] Nurse 1 Work Phone: [facility] Encounters Encounter Date Encounter Type Care Provider Facility Start: 04-24-2023 Telephone encounter Maribeth (Danie) [facility] [place] Procedures Date Procedure Procedure Detail Performing Clinician Start: 04-14-2023 INFLUENZA VACCINE, P RSV FREE, AGE 65+ YR, HIGH DOSE, QUADRIVALENT (FLUZONE HIGH-DOSE) Samir Quinones MD Work Phone: Start: 04-14-2023 Pulmonary stress testing Jose Walter MD Work Phone: Start: 02-06-2023 PB ED PLACEHOLDER Ynes Ha MD Work Phone: Start: 12-03-2022 End: 12-03-2022 Co diffusing capacity Jose Walter MD Work Phone: Start: 08-15-2022 Right heart cath o2 saturation & cardiac output Morgan Bo MD Work Phone: Start: 08-15-2022 Ct thorax w/o contra st material Jose Walter MD Work Phone: Start: 08-07-2022 Radiologic exam knee complete 4/more views Jose Walter MD Work Phone: Start: 08-07-2022 End: 08-07-2022 Brncdilat rspse spmtry pre&post-brncdilat admn Gela Jordan APRN.DIRECTOR HOME Work Phone: Start: 08-07-2022 Echo tthrc r-t 2d w/wom-mode compl spec&colr d Gela Jordan APRN.DIRECTOR HOME Work Phone: Start: 01-21-2022 Pulmonary stress testing Sanjuana Briones MD Work Phone: Start: 10-22-2021 End: 10-22-2021 Brncdilat rspse spmtry pre&post-brncdilat admn Jose Walter MD Work Phone: Start: 09-05-2021 Noninvasive ear/puls e oximetry multiple deter Gela Jordan APRN.DIRECTOR HOME Work Phone: Start: 09-05-2021 Brncdilat rspse spmt ry pre&post-brncdilat admn Glea Jordan APRN.DIRECTOR HOME Work Phone: Start: 09-05-2021 Echo tthrc r-t 2d w/wom-mode compl spec&colr d Gela Jordan APRN.DIRECTOR HOME Work Phone: Start: 11-01-2015 Adult depression scr eening assessment [facility] Work Phone: Start: 09-11-2005 Lipid 1996 panel - S enrrique or Plasma Gela Jordan APRN.DIRECTOR HOME Work Phone: Plan of Treatment Date Care Activity Detail Author Start: 02-06-2033 DTaP/Tdap/Td Vaccines (3 - Td or Tdap) DTaP/Tdap/Td Vaccines (3 - Td or Tdap) [facility] Start: 02-06-2033 Urine microalbumin profile DTaP,Tdap,Td Vaccine (3 - Td or Tdap) [facility] Start: 09-09-2030 Urine microalbumin profile [facility] Start: 04-14-2026 Diabetes Screening Diabetes Screening [facility] Start: 02-19-2026 Diabetes Screening Diabetes Screening [facility] Start: 12-03-2025 DIABETES SCREEN DIABETES SCREEN [facility] Start: 08-07-2025 DIABETES SCREEN DIABETES SCREEN [facility] Start: 05-03-2025 DIABETES SCREEN DIABETES SCREEN [facility] Start: 01-21-2025 DIABETES SCREEN DIABETES SCREEN [facility] Start: 09-05-2024 DIABETES SCREEN DIABETES SCREEN [facility] Start: 06-12-2024 DIABETES SCREEN DIABETES SCREEN [facility] Start: 02-14-2023 Covid-19 Vaccine ( season) Covid-19 Vaccine () [facility] Start: 02-14-2023 Influenza vaccination [facility] Start: 12-03-2022 End: 02-02-2023 C reactive protein [Mass/volume] in Serum or Plasma C-REACTIVE PROTEIN (CRP) Lab Routine Inflammatory polyarthritis (HCC) ILD (interstitial lung disease) (HCC) Expected: 12/03/2022, Expires: 02/02/2023 [facility] Work Phone: Immunizations Immunization Date Immunization Notes Care Provider Fa cility 04-14-2023 influenza (HD-IIV4) vaccine, age 65+ yr, high dose, quadrivalent, PF (FLUZONE HIGH-DOSE) Pullittle Violeta Work Phone: [facility] 02-06-2023 tetanus toxoid, redu patti diphtheria toxoid, and acellular pertussis vaccine, adsorbed Ynes Ha MD Work Phone: [facility] 03-01-2022 influenza, injectabl e, quadrivalent, preservative free Gela Jordan APRN.CNP Work Phone: [facility] 03-01-2022 influenza virus vaccine, unspecified formulation Ynes Ha MD Work Phone: [facility] 09-19-2020 COVID-19 vaccine, ag e 12+ yr (PFIZER-BIONTECH - PURPLE TOP) [facility] Work Phone: [facility] 09-09-2020 tetanus toxoid, redu patti diphtheria toxoid, and acellular pertussis vaccine, adsorbed [facility] Work Phone: [facility] 08-29-2020 COVID-19 vaccine, ag e 12+ yr (PFIZER-BIONTECH - PURPLE TOP) [facility] Work Phone: [facility] 06-02-2020 influenza, injectabl e, quadrivalent, preservative free [facility] Work Phone: [facility] 04-21-2019 influenza, injectabl e, quadrivalent, contains preservative [facility] Work Phone: [facility] 08-18-2018 pneumococcal conjuga te vaccine, 13 valent [facility] Work Phone: [facility] 02-17-2018 influenza, injectabl e, quadrivalent, contains preservative [facility] Work Phone: [facility] 05-30-2017 influenza, injectabl e, quadrivalent, contains preservative [facility] Work Phone: [facility] 05-16-2017 influenza virus vaccine, unspecified formulation [facility] Work Phone: [facility] 03-29-2016 influenza, injectabl e, quadrivalent, contains preservative [facility] Work Phone: [facility] 03-23-2015 influenza, injectabl e, quadrivalent, contains preservative [facility] Work Phone: [facility] 03-23-2015 influenza, seasonal, injectable [employer] Work Phone: [facility] Work Phone: 03-23-2015 pneumococcal polysaccharide vaccine, 23 valent [facility] Work Phone: [facility] Work Phone: NEGATED: Highlighted row has not occurred!02-17-2014 pneumococcal polysaccharide vaccine, 23 valent [facility] Work Phone: [facility] Payers Date Payer Category Payer Medicare MMO MEDICARE MMO MEDADVANTAGE O [id number] 2017-Present [phone] [address] [place] [address] [facility] [id number] 2017 Medicare [id number] 2017 Medicare [id number] Social History Date Type Detail Facility Start: 03-02-2014 End: 01-21-2022 Tobacco smoking status NHIS Ex-smoker [facility] Work Phone: End: 07-14-2007 History of tobacco use Current smoker [facility] Work Phone: End: 07-14-2007 History of tobacco use Cigarette Smoker [facility] Work Phone: Start: 03-02-2014 End: 12-03-2022 Cigarettes smoked current (pack per day) - Reported 1 [facility] Start: 03-02-2014 End: 01-21-2022 Tobacco use and exposure Smokeless tobacco non-user [facility] Work Phone: Start: 09-05-2021 End: 04-14-2023 Alcohol intake Current drinker of alcohol (finding) [facility] Start: 03-02-2014 History SDOH Alcohol Comment Socially [facility] Start: 04-21-2019 End: 01-21-2022 Tobacco Comment Smoked 1 ppd ~ 20 years; Denies Vaping [facility] Start: 1970 Sex Assigned At Not on file [facility] Start: 08-26-2021 End: 02-06-2023 Exposure to SARS-CoV-2 (event) Not sure [facility] Work Phone: Start: 12-03-2022 End: 02-26-2023 Tobacco use panel [facility] National Score (1-10 0), lower number is lower risk 56 [facility] Start: 02-06-2023 Tobacco smoking stat [facility] Tobacco smoking consumption unknown [facility] Clinical Notes 03-02-2014 to 04-24-2023 Telephone Encounter - Maribeth Boone - 04/24/2023 12:42 PM ESTPatient InstructionsJose Walter MD - 04/14/2023 9:14 AM Flory Quevedo RRT - 04/14/2023 7:44 AM EDTPatient Instructions Note Date & Type Note Facility 04-24-2023 Miscellaneous Notes Received encounter message from JORY Lopes) today 04/24/2023; [facility] called to follow up on PA send for Nasrin; called [facility] @ spoke with Jaqueline;advise Jaqueline no PA received and confirmed correct fax number to send PA request [phone]. documented in this encounter [facility] 04-14-2023 Note HNO ID: [id number] Author: Flory Steward RRT Service: ? Author Type: Registered Resp Therapist Type: Procedures Filed: 04/14/2023 2:01 PM Note Text: RESPIRATORY THERAPY SIX MINUTE WALK TEST OXIMETRY REPORT Six Minute Walk Test for This Encounter Oxygen Device Liters FIO2 SpO2% HR Activity Feet Speed (MPH) Flag R/A 98 96 Resting R/A 92 153 Six Minute Walk 1785 3.4 R/A 97 131 Recovery 1 minute post R/A 99 119 Recovery 2 minute post R/A 98 109 Recovery 3 minute post General Information Height Weight Smoking Status Pulse Oximetry Site Oximeter Pre Blood Pressure Post Blood Pressure Total Time Spent (min) 174 cm (5' 8.5 ) 140.6 kg (310 lb) -- Forehead Masimo 139/87 160/82 30 _ Distance Walked (meters) Distance Walked (feet) Male Predicted Walk Distance (feet) Male Lower Limit of Normal (feet) Male % Predicted Total Duration Of The Stops (seconds) 544.07 1785 1622.7 1120.7 110 -- _ Lowest SpO2 During 6 Minute Walk Pre-Laura Dyspnea Rating Pre-Laura Fatigue Rating Post Laura Dyspnea Rating Post Laura Fatigue Rating O2 Supply Carrier Walking Assistance/Device 90 % 0 0 4 5 -- None Six Minute Walk Trend (Previous Encounters) Test Date Distance Walked (feet) Oxygen Device Liters FIO2 SpO2% Laura Dyspnea Rating Laura Fatigue Rating 12/03/2022 1750 R/A 94 3 4 08/07/2022 1790 R/A 94 3 4 01/21/2022 1795 R/A 95 3 3 10/22/2021 1800 R/A 93 3 3 07/30/2021 1920 R/A 84 7 5 05/22/2021 1805 R/A 93 4 4 01/23/2021 1800 R/A 94 3 4 01/17/2020 1800 R/A 93 3 4 08/18/2019 1800 R/A 90 4 5 04/08/2019 1855 R/A 93 3 3 11/20/2018 1780 R/A 95 2 3 08/18/2018 1840 R/A 92 0 0 02/17/2018 1805 R/A 97 3 3 10/07/2017 1760 R/A 92 3 5 SIGNATURE: Flory Steward RRT PATIENT NAME: Nino Rosa DATE: April 14, 2023 TIME: 1:55 PM The patient completed the six minute walk test with No stops. . The patient required Room Air to complete the test. The distance the patient walked in six minutes is within the predicted normal range. The six minute walk distance today does not demonstrate a clinically significant change (135 feet decrease), when compared to the historically highest six minute walk distance from a test dated 07/30/21. Today's distance represents a 35 feet increase compared to the last visit on 12/03/22. The patient perceived their dyspnea during the six minute walk test to be 4-Somewhat severe on the modified Laura scale. The patient perceived their fatigue during the six minute walk test to be 5-Severe on the modified Laura scale. I have reviewed the findings and made appropriate revisions as needed. SIGNATURE: Wesley Carlin MD PATIENT NAME: Nino Rosa DATE: April 14, 2023 TIME: 2:01 PM [facility] 04-14-2023 Note HNO ID: [id number] Author: Jose Walter MD Service: ? 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 He was previously on rituximab, had reaction following both his last two rituximab infusions on 04/10 and 04/24. RHC shows postcapillary PH. He was last seen virtually by Gela Jordan on 02/26/2023 after a COVID infection with lingering symptoms. From a cardiopulmonary standpoint, he reports that his breathing is doing well. His COVID infection was a few months back and he feels like he is back to his baseline. During his six minute walk today, he felt like he was exerting himself. He was not strolling but with walking he tends to notice his heart rate spike. He states that he does not exercise but that he considers his lifestyle active. He was supposed to start Wegovy but it is on backorder and has not been able to start it. From a rheumatologic standpoint, he wonders if his new medication is helping him as he is not feeling improvement. He is currently on actemera. He had a reaction to Rituximab (which he does not recall his symptoms) and thats why he switched to Actemera. He reports hot flashes and joint pain. He mostly feels it in his fingers, toes, ankles, and hands even without movement. Mostly in MCP and PIP joints. He used to experience nausea with this as well but that has resolved. He treats this with prednisone when symptoms are very severe. He takes percocet for his pain which helps him sleep and get up in the morning. He reports morning sickness. He cannot be seated for more than a half an hour without feeling like he has to move again and then he starts experiencing pain again. He does not take a water pill as prescribed. He reports he does not think he needs it and was told to take it as needed like when eating a lot of salt. HISTORY REVIEWED (electronic chart updated): PAST MEDICAL HISTORY Diagnosis Date Gout HTN (hypertension) Interstitial lung disease (HCC) Lung nodules Tachycardia PAST SURGICAL HISTORY Procedure Laterality Date BRONCHOSCOPY PAST SURGICAL HISTORY OF 2013 VATS FAMILY HISTORY Problem Relation Age of Onset Ischemic Heart Disease Maternal Grandfather SOCIAL HISTORY Tobacco Use Smoking status: Former Packs/day: 1.00 Years: 20.00 Additional pack years: 0.00 Total pack years: 20.00 Types: Cigarettes Quit date: 07/14/2007 Years since quittin.7 Smokeless tobacco: Never Tobacco comments: Smoked 1 ppd ~ 20 years; Denies Vaping Vaping Use Vaping Use: Never used Substance Use Topics Alcohol use: Yes Alcohol/week: 7.5 standard drinks of alcohol Types: 3 Cans of Beer (12oz) per week Comment: Socially Drug use: No MEDICATIONS Medication Sig sulfamethoxazole-trimethoprim (BACTRIM DS) 800-160 mg per tablet TAKE ONE TABLET BY MOUTH every friday, friday, and friday. tocilizumab (ACTEMRA ACTPEN) 162 mg/0.9 mL Inject 0.9 mL subcutaneously one time a week. hydrOXYchloroQUINE (PLAQUENIL) 200 mg tablet Take 2 tablets by mouth once daily. azaTHIOprine (IMURAN) 50 mg tablet TAKE THREE (3) TABLETS BY MOUTH EVERY DAY predniSONE (DELTASONE) 20 mg tablet Take 1 tablet by mouth once daily. DULoxetine (CYMBALTA) 60 mg capsule Take 1 capsule by mouth once daily. albuterol HFA (PROVENTIL HFA, VENTOLIN HFA) 90 mcg/actuation inhaler Inhale 2 Puffs as instructed every 4 hours as needed for wheezing/shortness of breath. amLODIPine (NORVASC) 10 mg tablet Take 10 mg by mouth once daily. testosterone cypionate (DEPO-TESTOSTERONE) 200 mg/mL injection Inject 300 mg intramuscularly every 2 weeks. olmesartan (BENICAR) 40 mg tablet Take 40 mg by mouth once daily. furosemide (LASIX) 20 mg tablet Take 1 tablet by mouth once daily. (Patient not taking: Reported on 04/14/2023) ALLERGIES Not on File REVIEW OF SYSTEMS: Mr. Rosa reports joint pain, hot flashes, is per history of present illness and is otherwise negative on detailed 14 point review. PHYSICAL EXAMINATION: General: In no apparent distress 04/14/23 0853 BP: 137/84 Pulse: 105 Resp: 16 Temp: 36.4 ?C (97.6 ?F) TempSrc: Temporal SpO2: 98% Weight: (!) 140.6 kg (309 lb 15.8 oz) HEENT: Unremarkable; Mallampati class 4 airway Neck: Supple, without lymphadenopathy, thyromegaly or JVD Chest: clear to auscultation bilaterally Cardiac: Regular rate and rhythm, without murmurs, gallops or rubs Abdomen: Normal bowel sounds, soft, nontender, without hepatosplenomegaly Extremities: No clubbing, cyanosis or edema Musculoskeletal: No synovitis Skin: No rash or suspicious lesions of visualized exposed areas Neurologic: Nonfocal, strength 5/5 Laboratory Data Laboratory Data Laboratory data reviewed in [facility] Everywhere. GLADYS GLADYS (no units) Date Value 03/23/2015 Positive GLADYS (more content not included)... [facility] 04-14-2023 Note HNO ID: [id number] Author: Flory Steward, [employer] Service: ? Author Type: Registered Resp Therapist Type: Procedures Filed: 04/14/2023 9:18 AM Note Text: RESPIRATORY THERAPY SIX MINUTE WALK TEST OXIMETRY REPORT Six Minute Walk Test for This Encounter Oxygen Device Liters FIO2 SpO2% HR Activity Feet Speed (MPH) Flag R/A 98 96 Resting R/A 92 153 Six Minute Walk 1785 3.4 R/A 97 131 Recovery 1 minute post R/A 99 119 Recovery 2 minute post R/A 98 109 Recovery 3 minute post General Information Height Weight Smoking Status Pulse Oximetry Site Oximeter Pre Blood Pressure Post Blood Pressure Total Time Spent (min) 174 cm (5' 8.5 ) 140.6 kg (310 lb) -- Forehead Masimo 139/87 160/82 30 _ Distance Walked (meters) Distance Walked (feet) Female Predicted Walk Distance (feet) Female Lower Limit of Normal (feet) Female % Predicted Total Duration Of The Stops (seconds) 544.07 1785 1331.36 875.36 134.1 -- _ Lowest SpO2 During 6 Minute Walk Pre-Laura Dyspnea Rating Pre-Laura Fatigue Rating Post Laura Dyspnea Rating Post Laura Fatigue Rating O2 Supply Carrier Walking Assistance/Device 90 % 0 0 4 5 -- None Six Minute Walk Trend (Previous Encounters) Test Date Distance Walked (feet) Oxygen Device Liters FIO2 SpO2% Laura Dyspnea Rating Laura Fatigue Rating 12/03/2022 1750 R/A 94 3 4 08/07/2022 1790 R/A 94 3 4 01/21/2022 1795 R/A 95 3 3 10/22/2021 1800 R/A 93 3 3 07/30/2021 1920 R/A 84 7 5 05/22/2021 1805 R/A 93 4 4 01/23/2021 1800 R/A 94 3 4 01/17/2020 1800 R/A 93 3 4 08/18/2019 1800 R/A 90 4 5 04/08/2019 1855 R/A 93 3 3 11/20/2018 1780 R/A 95 2 3 08/18/2018 1840 R/A 92 0 0 02/17/2018 1805 R/A 97 3 3 10/07/2017 1760 R/A 92 3 5 SIGNATURE: Flory Steward RRT PATIENT NAME: Nino Rosa DATE: April 14, 2023 TIME: 7:45 AM The patient completed the six minute walk test with No stops. . The patient required Room Air to complete the test. The distance the patient walked in six minutes is within the predicted normal range. The six minute walk distance today does not demonstrate a clinically significant change (135 feet decrease), when compared to the historically highest six minute walk distance from a test dated 07/30/21. Today's distance represents a 35 feet increase compared to the last visit on 12/03/22. The patient perceived their dyspnea during the six minute walk test to be 4-Somewhat severe on the modified Laura scale. The patient perceived their fatigue during the six minute walk test to be 5-Severe on the modified Laura scale. I have reviewed the findings and made appropriate revisions as needed. SIGNATURE: Wesley Carlin MD PATIENT NAME: Nino Roas DATE: April 14, 2023 TIME: 9:17 AM [facility] 04-14-2023 Instructions You, Samir Pineda MD - 04/14/2023 9:40 AM EDT Once you start Xaljance, please stop using Actemra, imuran, plaquenil (hydrochloroquine). Once Xaljance is started, we will need blood work done every one month (already ordered in the system) Return to Dr. Walter's clinic with repeat pulmonary function test Weight loss is strongly advised. Please talk to primary care doctor about Ozempic and weight loss program. documented in this encounter [facility] 04-14-2023 Note HNO ID: [id number] Author: Flory Steward RRT Service: ? Author Type: Registered Resp Therapist Type: Progress Notes Filed: 04/14/2023 7:23 AM Note Text: .PULM FUNCTION SMARTBLOCK: Provider: Jose Walter MD Spirometry: 1 DLCO: 1 6 MW: 1 System: MC3 - [id number] [facility] 04-14-2023 History of Present illness Narrative Images from the original note were not included. 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 He was previously on rituximab, had reaction following both his last two rituximab infusions on 04/10 and 04/24. RHC shows postcapillary PH. He was last seen virtually by Gela Jordan on 02/26/2023 after a COVID infection with lingering symptoms. From a cardiopulmonary standpoint, he reports that his breathing is doing well. His COVID infection was a few months back and he feels like he is back to his baseline. During his six minute walk today, he felt like he was exerting himself. He was not strolling but with walking he tends to notice his heart rate spike. He states that he does not exercise but that he considers his lifestyle active. He was supposed to start Wegovy but it is on backorder and has not been able to start it. From a rheumatologic standpoint, he wonders if his new medication is helping him as he is not feeling improvement. He is currently on actemera. He had a reaction to Rituximab (which he does not recall his symptoms) and thats why he switched to Actemera. He reports hot flashes and joint pain. He mostly feels it in his fingers, toes, ankles, and hands even without movement. Mostly in MCP and PIP joints. He used to experience nausea with this as well but that has resolved. He treats this with prednisone when symptoms are very severe. He takes percocet for his pain which helps him sleep and get up in the morning. He reports morning sickness. He cannot be seated for more than a half an hour without feeling like he has to move again and then he starts experiencing pain again. He does not take a water pill as prescribed. He reports he does not think he needs it and was told to take it as needed like when eating a lot of salt. HISTORY REVIEWED (electronic chart updated): PAST MEDICAL HISTORY Diagnosis Date Gout HTN (hypertension) Interstitial lung disease (HCC) Lung nodules Tachycardia PAST SURGICAL HISTORY Procedure Laterality Date BRONCHOSCOPY PAST SURGICAL HISTORY OF 2013 VATS FAMILY HISTORY Problem Relation Age of Onset Ischemic Heart Disease Maternal Grandfather SOCIAL HISTORY Tobacco Use Smoking status: Former Packs/day: 1.00 Years: 20.00 Additional pack years: 0.00 Total pack years: 20.00 Types: Cigarettes Quit date: 07/14/2007 Years since quittin.7 Smokeless tobacco: Never Tobacco comments: Smoked 1 ppd ~ 20 years; Denies Vaping Vaping Use Vaping Use: Never used Substance Use Topics Alcohol use: Yes Alcohol/week: 7.5 standard drinks of alcohol Types: 3 Cans of Beer (12oz) per week Comment: Socially Drug use: No MEDICATIONS Medication Sig sulfamethoxazole-trimethoprim (BACTRIM DS) 800-160 mg per tablet TAKE ONE TABLET BY MOUTH every friday, friday, and friday. tocilizumab (ACTEMRA ACTPEN) 162 mg/0.9 mL Inject 0.9 mL subcutaneously one time a week. hydrOXYchloroQUINE (PLAQUENIL) 200 mg tablet Take 2 tablets by mouth once daily. azaTHIOprine (IMURAN) 50 mg tablet TAKE THREE (3) TABLETS BY MOUTH EVERY DAY predniSONE (DELTASONE) 20 mg tablet Take 1 tablet by mouth once daily. DULoxetine (CYMBALTA) 60 mg capsule Take 1 capsule by mouth once daily. albuterol HFA (PROVENTIL HFA, VENTOLIN HFA) 90 mcg/actuation inhaler Inhale 2 Puffs as instructed every 4 hours as needed for wheezing/shortness of breath. amLODIPine (NORVASC) 10 mg tablet Take 10 mg by mouth once daily. testosterone cypionate (DEPO-TESTOSTERONE) 200 mg/mL injection Inject 300 mg intramuscularly every 2 weeks. olmesartan (BENICAR) 40 mg tablet Take 40 mg by mouth once daily. furosemide (LASIX) 20 mg tablet Take 1 tablet by mouth once daily. (Patient not taking: Reported on 04/14/2023) ALLERGIES Not on File REVIEW OF SYSTEMS: Mr. Rosa reports joint pain, hot flashes, is per history of present illness and is otherwise negative on detailed 14 point review. PHYSICAL EXAMINATION: General: In no apparent distress 04/14/23 0853 BP: 137/84 Pulse: 105 Resp: 16 Temp: 36.4 C (97.6 F) TempSrc: Temporal SpO2: 98% Weight: (!) 140.6 kg (309 lb 15.8 oz) HEENT: Unremarkable; Mallampati class 4 airway Neck: Supple, without lymphadenopathy, thyromegaly or JVD Chest: clear to auscultation bilaterally Cardiac: Regular rate and rhythm, without murmurs, gallops or rubs Abdomen: Normal bowel sounds, soft, nontender, without hepatosplenomegaly Extremities: No clubbing, cyanosis or edema Musculoskeletal: No synovitis Skin: No rash or suspicious lesions of visualized exposed areas Neurologic: Nonfocal, strength 5/5 Laboratory Data Laboratory Data Laboratory data reviewed in [facility] Everywhere. GLADYS GLADYS (no units) Date Value 03/23/2015 Positive GLADYS by EIA (OD Ratio) Date Value 02/17/2014 2.5 Rheumatoid Factor Rheumatoid Factor (IU/mL) Date Value 03/23/2015 <10 TSH TSH Date Value 08/07/2022 4.820 mIU/L 10/13/2018 3.460 uU/mL HIV HIV 12 Combo (Ag/Ab) (no units) Date Value 03/23/2015 Non Reactive Hepatitis B Surface Antigen HBsAg (no units) Date Value 03/23/2015 Negative Hepatitis C Hep C Antibody IA (no units) Date Value 03/23/2015 Negative NT PRO BNP Lab Results Component Value Date PBNP <36 12/03/2022 PBNP <50 06/10/2021 PBNP <50 11/08/2020 Chemistries Lab Results Component Value Date NA 143 02/19/2023 NA 140 12/03/2022 NA 140 08/07/2022 K 4.6 02/19/2023 K 4.9 12/03/2022 K 4.8 08/07/2022 CHLOR 104 02/19/2023 CHLOR 102 12/03/2022 CHLOR 102 08/07/2022 CO2 29 02/19/2023 CO2 25 12/03/2022 CO2 28 08/15/2022 BUN 11 02/19/2023 BUN 15 12/03/2022 BUN 8 (L) 08/07/2022 CREAT 0.98 02/19/2023 CREAT 0.97 12/03/2022 CREAT 0.99 08/07/2022 GLUC 107 (H) 02/19/2023 GLUC 100 (H) 12/03/2022 GLUC 92 08/07/2022 ANION 10 02/19/2023 ANION 13 12/03/2022 ANION 8 (L) 08/07/2022 Liver Function Lab Results Component Value Date AST 42 (H) 02/19/2023 AST 33 12/03/2022 AST 37 08/07/2022 ALT 59 (H) 02/19/2023 ALT 40 12/03/2022 ALT 39 08/07/2022 ALKPHOS 72 02/19/2023 ALKPHOS 79 12/03/2022 ALKPHOS 64 08/07/2022 TBILI 0.4 02/19/2023 TBILI 0.4 12/03/2022 TBILI 0.4 08/07/2022 CBC Lab Results Component Value Date HB 15.8 04/14/2023 HB 16.5 02/19/2023 HB 16.8 12/03/2022 HCT 45.8 04/14/2023 HCT 47.7 02/19/2023 HCT 49.3 12/03/2022 WBC 5.53 04/14/2023 WBC 7.56 02/19/2023 WBC 8.20 12/03/2022 PLT 177 04/14/2023 PLT 231 02/19/2023 PLT 271 12/03/2022 Pulmonary Function Tests Date FVC FEV1 FEV1/FVC TLC DLCO 11/20/18 3.59/73.7 2.88/74.6 80 32.64/106.5 04/08/19 3.59/73.8 2.82/73.3 78 33.51/109.3 08/18/19 3.32/68.3 2.66/69.3 80 34.80/114.4 01/17/20 3.31/70.3 2.64/70.9 80 34.61/115.0 09/18/20 3.02/64 2.55/68 84 26.38/95 01/23/21 3.34/71.2 2.69/72.7 80 32.21/107.8 05/22/21 3.27/70.0 2.59/70.3 79 31.66/106.8 07/30/2021 2.79/59 2.19/59 78 24.67/83 09/05/2021 2.99/64 2.35/64 79 32.78/110 01/21/2022 3.36/72 2.58/70 77 30.88/104 08/07/22 3.16/68 2.49/68 79/99 32.44/110 12/03/2022 3.32/77 2.55/74 77 34.76/118 04/14/2023 3.08/71 2.44/71 79 29.75/101 Six Minute Walk 04/14/2023 Six Minute Walk Test for This Encounter Oxygen Device Liters FIO2 SpO2% HR Activity Feet Speed (MPH) Flag R/A 98 96 Resting R/A 92 153 Six Minute Walk 1785 3.4 R/A 97 131 Recovery 1 minute post R/A 99 119 Recovery 2 minute post R/A 98 109 Recovery 3 minute post General Information Height Weight Smoking Status Pulse Oximetry Site Oximeter Pre Blood Pressure Post Blood Pressure Total Time Spent (min) 174 cm (5' 8.5 ) 140.6 kg (310 lb) -- Forehead Masimo 139/87 160/82 30 _ Distance Walked (meters) Distance Walked (feet) Female Predicted Walk Distance (feet) Female Lower Limit of Normal (feet) Female % Predicted Total Duration Of The Stops (seconds) 544.07 1785 1331.36 875.36 134.1 -- _ Lowest SpO2 During 6 Minute Walk Pre-Laura Dyspnea Rating Pre-Laura Fatigue Rating Post Laura Dyspnea Rating Post Laura Fatigue Rating O2 Supply Carrier Walking Assistance/Device 90 % 0 0 4 5 -- None Six Minute Walk Trend (Previous Encounters) Test Date Distance Walked (feet) Oxygen Device Liters FIO2 SpO2% Laura Dyspnea Rating Laura Fatigue Rating 12/03/2022 1750 R/A 94 3 4 08/07/2022 1790 R/A 94 3 4 01/21/2022 1795 R/A 95 3 3 10/22/2021 1800 R/A 93 3 3 07/30/2021 1920 R/A 84 7 5 05/22/2021 1805 R/A 93 4 4 01/23/2021 1800 R/A 94 3 4 01/17/2020 1800 R/A 93 3 4 08/18/2019 1800 R/A 90 4 5 04/08/2019 1855 R/A 93 3 3 11/20/2018 1780 R/A 95 2 3 08/18/2018 1840 R/A 92 0 0 02/17/2018 1805 R/A 97 3 3 10/07/2017 1760 R/A [address] chest 08/15/2022 IMPRESSION: Few patchy upper lobe predominant groundglass opacities have near completely resolved, likely inflammatory/infectious in nature. Persistent mosaic attenuation of the lung parenchyma, which may be related to small airway or small vessel disease. No significant evidence of pulmonary fibrosis. Lung parenchyma and airways: Stable mild elevation of the right hemidiaphragm anteriorly. No focal consolidation. Previously noted multifocal groundglass opacities in the upper lobes have near completely resolved. Stable scarring and postsurgical changes in the left upper lobe. Stable curvilinear opacities in the left lower lobe (image 216) are likely related to post inflammatory scarring or atelectasis. No suspicious pulmonary nodules. Few granulomas are also noted. Mosaic attenuation of the lung parenchyma is noted with scattered areas of air trapping. Saber sheath tracheal morphology. The central airways are patent without endobronchial lesion also. No excessive dynamic airway collapse. Pleural space: No pleural effusion. Unchanged pleural thickening/scarring in the left upper lobe. Lower neck, lymph nodes, and mediastinum: The imaged thyroid gland is normal. No lymphadenopathy in the supraclavicular, axillary, mediastinal, or hilar regions. The esophagus is nondilated. Heart, pericardium, and thoracic vessels: The thoracic aorta is borderline ectatic measuring 3.8 cm in greatest transverse diameter. The main pulmonary artery is dilated measuring up to 3.4 cm in greatest transverse diameter, a finding that can be seen in pulmonary hypertension. Mild left atrial enlargement, otherwise the remaining cardiac chambers are within normal limits. Minimal coronary artery atherosclerotic calcifications are noted, although the study is not optimized for coronary assessment. No pericardial effusion or thickening. Bones and soft tissues: Partially imaged remote fracture of the lateral right 10th rib. Mild degenerative changes are noted in the thoracic spine. Upper abdomen: No abnormality in the imaged upper abdomen. Proposition Player (topogram) images: No additional findings. Echocardiogram Echo 08/07/2022 Impression CONCLUSIONS: - Technically difficult exam due to body habitus. - Exam indication: Shortness of Breath - The left ventricle is normal in size. Left ventricular systolic function is normal. EF = 66 5% (2D 4-ch.) Definity contrast used for endocardial border detection. - The right ventricle is mildly dilated. Right ventricular systolic function is normal. - Exam was compared with the prior echocardiographic exam performed on 09/05/2021. Similar findings. Right Heart Catheterization 08/15/2022 Abbreviated version Right atrial pressure (mean) 13.00 mmHg Mean pulmonary artery pressure 36.00 mmHg Pulmonary artery occlusion pressure (end-expiration) 29.00 mmHg Cardiac index (thermodilution) 1.68 L/min/m2 Pulmonary vascular resistance 1.71 Wood Units Mixed venous oxyhemoglobin 66.00 % Summary: Postcapillary PH with preserved cardiac index. Marked oscillation of pleural pressure likely reflecting and increase in the intrathoracic pressure. Esophageal balloon placement not offered given marked anxiety. Pleural pressure likely around 15-20 mmHg based on respiratory oscillation of pulmonary pressures. ASSESSMENT: IPAF on aza and plaquenil and Actemra (started 3 months ago). Three months ago he was covid-19 positive s/p brief prednisone course. Mr. Rosa is a 52 year old man with Interstitial Pneumonia with Autoimmune features. Symptomatically stable, but decline in PFTs Inflammatory polyarthritis Obesity; BMI 46.45 High risk medications requiring laboratory monitoring: Plaquenil, Actemra, Imuran and Xeljanz PLAN: Start Xeljanz (tofacitinib) and stop plaquenil, imuran, and Actemra (some decline seen on PFT noted today with ongoing joint pain despite addition of Actemra ). Will consider addition of second agent at next visit. Maintain labs once a month for the next 3 months once Xeljanz is started Begin an exercise/walking regimen to lose weight to improve joint pain. Advised patient to talk to primary care doctor to discuss eligibility for Ozempic and weight loss program. Consult PCP for hot flashes to rule out any hormonal imbalance High dose flu shot given today Follow up in 3 months with repeat PFTs, walk and labs. Low threshold to repeat chest CT. By signing my name below, Lakeisha Ng PCNA, attest that this documentation has been prepared under the direction and in the presence of Dr. Samir Quinones MD and Dr. Brad MD Electronically signed, PARKER Rocha Scribe April 14, 2023 3:43 PM Provider Attestation: Samir Ng MD personally performed the services described in this documentation. All medical record entries made by the scribe were at my direction and in my presence. I have reviewed the chart and discharge instructions (if applicable) and agree that the record reflects my personal performance and is accurate and complete. Samir Quinones MD April 14, 2023 PULMONARY ATTENDING I have personally interviewed and examined the patient. I have personally verified elements of the exam listed above. Interval changes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 Repair Performed by: Ynes Ha MD Authorized by: Ynes Ha MD Consent: Consent obtained: Verbal Consent given by: Patient Risks discussed: Infection, pain and poor cosmetic result Anesthesia: Anesthesia method: None Laceration details: Wound length (cm): 1 cm and 0.5 cm. Laceration depth: 2 mm for both lacerations. Exploration: Wound exploration: wound explored through full range of motion and entire depth of wound visualized Wound extent: no muscle damage noted, no nerve damage noted, no tendon damage noted and no vascular damage noted Contaminated: no Treatment: Irrigation solution: Tap water Irrigation method: Tap Skin repair: Repair method: Sutures Suture size: 5-0 Suture material: Chromic gut Suture technique: Simple interrupted Number of sutures: 5 (total) Approximation: Approximation: Close Repair type: Repair type: Simple Post-procedure details: Dressing: Adhesive bandage Procedure completion: Tolerated well, no immediate complications DISPOSITION/PLAN PATIENT REFERRED TO: Jennyfer Carin Denise [address] [place] [address] [place] [facility] [id number] Schedule an appointment as soon as possible for a visit in 1 week As needed, For wound re-check DISCHARGE MEDICATIONS: ED Prescriptions None New Prescriptions No medications on file Ynes Ha MD Emergency Medicine Ynes Ha MD 02/06/232058 [facility] 12-13-2022 Miscellaneous Notes Faxed received today Patient will approved to receive their medication Actemra free of charge. Ilir Scott Provider section completed, signed [email or web address] Fax confirmation Ilir Scott documented in this encounter [facility] 12-04-2022 Miscellaneous Notes Images from the original note were not included. ILD/Sarcoidosis Prior Authorization Outcome ACTEMRA 162/0.9 Status: APPROVED Case/Authorization ID: [id number] Valid through dates: 11/04/2022 - Ordering Provider: Dr. Jose Walter Dispensing Pharmacy: [facility] Approved Prior authorization approved Payer: [employer] [phone] CaseId:[id number];Status:Approved;Carin perera Type:Prior Auth;Coverage Start Date:11/04/2022;Coverage End Date:06/15/2023;;CaseId:[id number]; Status:Approved;Review Type:Qty;Coverage Start Date:11/04/2022;Coverage End Date:12/04/2023; Approval Details Authorized from November 04, 2022 to June 15, 2023 Electronic appeal: Not supported View History Ilir Scott Images from the original note were not included. 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 Jose Walter Dispensing pharmacy: [facility] documented in this encounter [facility] 12-03-2022 Note HNO ID: [id number] Author: Jose Walter MD Service: ? 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 He last received rituximab approximately 8 months ago and this was discontinued secondary to infusion reaction. I last saw him on August 28 by [facility], and at that visit attempted to get him approved for Humira, but was unsuccessful. From a cardiopulmonary standpoint, he is doing well. He notes stable exercise tolerance. He denies near syncope, syncope, chest pain, palpitations, PND, orthopnea or lower extremity edema. However, from an arthritis standpoint, he notes increased joint pain in his knees, ankles and hands with extended morning stiffness. He has been taking prednisone intermittently, which does help. He feels that he is not as good as when he was on rituximab. REVIEW OF SYSTEMS: is per history of present illness and is otherwise negative on detailed 14 point review. 12/03 23: Past medical, surgical, social, family, allergy and medication history reviewed and updated as appropriate. PAST MEDICAL HISTORY Diagnosis Date Gout HTN (hypertension) Interstitial lung disease (HCC) Lung nodules Tachycardia PAST SURGICAL HISTORY Procedure Laterality Date BRONCHOSCOPY PAST SURGICAL HISTORY OF 2013 VATS FAMILY HISTORY Problem Relation Age of Onset Ischemic Heart Disease Maternal Grandfather SOCIAL HISTORY Tobacco Use Smoking status: Former Packs/day: 1.00 Years: 20.00 Pack years: 20.00 Types: Cigarettes Quit date: 07/14/2007 Years since quittin.4 Smokeless tobacco: Never Tobacco comments: Smoked 1 ppd ~ 20 years; Denies Vaping Vaping Use Vaping Use: Never used Substance Use Topics Alcohol use: Yes Alcohol/week: 7.5 standard drinks Types: 3 Cans of Beer (12oz) per week Comment: Socially Drug use: No CURRENT MEDICATIONS Current Outpatient Medications Medication Sig azaTHIOprine (IMURAN) 50 mg tablet TAKE THREE (3) TABLETS BY MOUTH EVERY DAY furosemide (LASIX) 20 mg tablet Take 1 tablet by mouth once daily. predniSONE (DELTASONE) 20 mg tablet Take 1 tablet by mouth once daily. sulfamethoxazole-trimethoprim (BACTRIM DS) 800-160 mg per tablet Take 1 tablet by mouth every Friday,Friday,Friday. DULoxetine (CYMBALTA) 60 mg capsule Take 1 capsule by mouth once daily. albuterol HFA (PROVENTIL HFA, VENTOLIN HFA) 90 mcg/actuation inhaler Inhale 2 Puffs as instructed every 4 hours as needed for wheezing/shortness of breath. amLODIPine (NORVASC) 10 mg tablet Take 10 mg by mouth once daily. Benzonatate 200 mg capsule Take by mouth. oxyCODONE-acetaminophen (PERCOCET) 7.5-325 mg tablet Take 1 tablet by mouth every 12 hours as needed for pain. testosterone cypionate (DEPO-TESTOSTERONE) 200 mg/mL injection Inject 300 mg intramuscularly every 2 weeks. olmesartan (BENICAR) 40 mg tablet Take 40 mg by mouth once daily. hydrOXYchloroQUINE (PLAQUENIL) 200 mg tablet Take 2 tablets by mouth once daily. carBAMazepine (TEGRETOL) 200 mg tablet Take by mouth. aspirin, enteric coated (ASPIRIN, ENTERIC COATED) 81 mg EC tablet Take 81 mg by mouth once daily. ALLERGIES Not on File PHYSICAL EXAMINATION: General: In no apparent distress 12/03/22 1124 BP: 130/88 Pulse: 95 Resp: 18 Temp: 36.6 ?C (97.8 ?F) TempSrc: Temporal SpO2: 98% Weight: (!) 137.8 kg (303 lb 12.7 oz) HEENT: Unremarkable Neck: Supple, without lymphadenopathy, thyromegaly or JVD Chest: Few crackles, inspiratory squeaks Cardiac: Regular rate and rhythm, without murmurs, gallops or rubs Abdomen: Normal bowel sounds, soft, nontender, without hepatosplenomegaly Extremities: No clubbing, cyanosis or edema Musculoskeletal: No synovitis, but multiple PIPs, MCPs, wrists, knees and feet with tenderness to outpatient Skin: No rash or suspicious lesions of visualized exposed areas Neurologic: Nonfocal, strength 5/5 Pulmonary Function Data PFT available: No Date FVC FEV1 FEV1/FVC TLC DLCO 11/20/18 3.59/73.7 2.88/74.6 80 32.64/106.5 04/08/19 3.59/73.8 2.82/73.3 78 33.51/109.3 08/18/19 3.32/68.3 2.66/69.3 80 34.80/114.4 01/17/20 3.31/70.3 2.64/70.9 80 34.61/115.0 09/18/20 3.02/64 2.55/68 84 26.38/95 01/23/21 3.34/71.2 2.69/72.7 80 32.21/107.8 05/22/21 3.27/70.0 2.59/70.3 79 31.66/106.8 07/30/2021 2.79/59 2.19/59 78 24.67/83 09/05/2021 2.99/64 2.35/64 79 32.78/110 01/21/2022 3.36/72 2.58/70 77 30.88/104 08/07/22 3.16/68 2.49/68 79/99 32.44/110 12/13/22 3.32/77 2.55/74 77 34.75/[address] chest 08/15/2022 IMPRESSION: Few patchy upper lobe predominant groundglass opacities have near completely resolved, likely inflammatory/infectious in nature. Persistent mosaic attenuation of the lung parenchyma, which may be related to small airway or small vessel disease. No significant evidence of (more content not included)... [facility] 12-03-2022 Note HNO ID: [id number] Author: Lorena Malcolm RRT Service: ? Author Type: Parts Cleaner Type: Procedures Filed: 12/03/2022 11:00 AM Note Text: RESPIRATORY THERAPY SIX MINUTE WALK TEST OXIMETRY REPORT Six Minute Walk Test for This Encounter Oxygen Device Liters FIO2 SpO2% HR Activity Feet Speed (MPH) Flag R/A 100 91 Resting R/A 94 146 Six Minute Walk 1750 3.3 R/A 97 122 Recovery 1 minute post R/A 100 115 Recovery 2 minute post R/A 99 110 Recovery 3 minute post General Information Height Weight Smoking Status Pulse Oximetry Site Oximeter Pre Blood Pressure Post Blood Pressure Total Time Spent (min) 174 cm (5' 8.5 ) 137.8 kg (303 lb 12.7 oz) -- Forehead Masimo 126/84 174/89 30 _ Distance Walked (meters) Distance Walked (feet) Male Predicted Walk Distance (feet) Male Lower Limit of Normal (feet) Male % Predicted Total Duration Of The Stops (seconds) 533.4 1750 1639.11 1137.11 106.8 -- _ Lowest SpO2 During 6 Minute Walk Pre-Laura Dyspnea Rating Pre-Laura Fatigue Rating Post Laura Dyspnea Rating Post Laura Fatigue Rating O2 Supply Carrier Walking Assistance/Device 94 % 0 0 3 4 -- None Six Minute Walk Trend (Previous Encounters) Test Date Distance Walked (feet) Oxygen Device Liters FIO2 SpO2% Laura Dyspnea Rating Laura Fatigue Rating 08/07/2022 1790 R/A 94 3 4 01/21/2022 1795 R/A 95 3 3 10/22/2021 1800 R/A 93 3 3 07/30/2021 1920 R/A 84 7 5 05/22/2021 1805 R/A 93 4 4 01/23/2021 1800 R/A 94 3 4 01/17/2020 1800 R/A 93 3 4 08/18/2019 1800 R/A 90 4 5 04/08/2019 1855 R/A 93 3 3 11/20/2018 1780 R/A 95 2 3 08/18/2018 1840 R/A 92 0 0 02/17/2018 1805 R/A 97 3 3 10/07/2017 1760 R/A 92 3 5 SIGNATURE: Lorena Malcolm RRT PATIENT NAME: Nino Rosa DATE: December 03, 2022 TIME: 10:32 AM The patient completed the six minute walk test with No stops. . The patient required Room Air to complete the test. The distance the patient walked in six minutes is within the predicted normal range. The six minute walk distance today does not demonstrate a clinically significant change (170 feet decrease), when compared to the historically highest six minute walk distance from a test dated 07/30/21. Today's distance represents a 40 feet decrease compared to the last visit on 08/07/22. The patient perceived their dyspnea during the six minute walk test to be 3-Moderate on the modified Laura scale. The patient perceived their fatigue during the six minute walk test to be 4-Somewhat severe on the modified Laura scale. I have reviewed the findings and made appropriate revisions as needed. SIGNATURE: Wesley Carlin MD PATIENT NAME: Nino Rosa DATE: December 03, 2022 TIME: 11:00 AM [facility] 12-03-2022 Note HNO ID: [id number] Author: Lorena Malcolm RRT Service: ? 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 He last received rituximab approximately 8 months ago and this was discontinued secondary to infusion reaction. I last saw him on August 28 by [facility], and at that visit attempted to get him approved for Humira, but was unsuccessful. From a cardiopulmonary standpoint, he is doing well. He notes stable exercise tolerance. He denies near syncope, syncope, chest pain, palpitations, PND, orthopnea or lower extremity edema. However, from an arthritis standpoint, he notes increased joint pain in his knees, ankles and hands with extended morning stiffness. He has been taking prednisone intermittently, which does help. He feels that he is not as good as when he was on rituximab. REVIEW OF SYSTEMS: is per history of present illness and is otherwise negative on detailed 14 point review. 12/03 23: Past medical, surgical, social, family, allergy and medication history reviewed and updated as appropriate. PAST MEDICAL HISTORY Diagnosis Date Gout HTN (hypertension) Interstitial lung disease (HCC) Lung nodules Tachycardia PAST SURGICAL HISTORY Procedure Laterality Date BRONCHOSCOPY PAST SURGICAL HISTORY OF 2013 VATS FAMILY HISTORY Problem Relation Age of Onset Ischemic Heart Disease Maternal Grandfather SOCIAL HISTORY Tobacco Use Smoking status: Former Packs/day: 1.00 Years: 20.00 Pack years: 20.00 Types: Cigarettes Quit date: 07/14/2007 Years since quittin.4 Smokeless tobacco: Never Tobacco comments: Smoked 1 ppd ~ 20 years; Denies Vaping Vaping Use Vaping Use: Never used Substance Use Topics Alcohol use: Yes Alcohol/week: 7.5 standard drinks Types: 3 Cans of Beer (12oz) per week Comment: Socially Drug use: No CURRENT MEDICATIONS Current Outpatient Medications Medication Sig azaTHIOprine (IMURAN) 50 mg tablet TAKE THREE (3) TABLETS BY MOUTH EVERY DAY furosemide (LASIX) 20 mg tablet Take 1 tablet by mouth once daily. predniSONE (DELTASONE) 20 mg tablet Take 1 tablet by mouth once daily. sulfamethoxazole-trimethoprim (BACTRIM DS) 800-160 mg per tablet Take 1 tablet by mouth every Friday,Friday,Friday. DULoxetine (CYMBALTA) 60 mg capsule Take 1 capsule by mouth once daily. albuterol HFA (PROVENTIL HFA, VENTOLIN HFA) 90 mcg/actuation inhaler Inhale 2 Puffs as instructed every 4 hours as needed for wheezing/shortness of breath. amLODIPine (NORVASC) 10 mg tablet Take 10 mg by mouth once daily. Benzonatate 200 mg capsule Take by mouth. oxyCODONE-acetaminophen (PERCOCET) 7.5-325 mg tablet Take 1 tablet by mouth every 12 hours as needed for pain. testosterone cypionate (DEPO-TESTOSTERONE) 200 mg/mL injection Inject 300 mg intramuscularly every 2 weeks. olmesartan (BENICAR) 40 mg tablet Take 40 mg by mouth once daily. hydrOXYchloroQUINE (PLAQUENIL) 200 mg tablet Take 2 tablets by mouth once daily. carBAMazepine (TEGRETOL) 200 mg tablet Take by mouth. aspirin, enteric coated (ASPIRIN, ENTERIC COATED) 81 mg EC tablet Take 81 mg by mouth once daily. ALLERGIES Not on File PHYSICAL EXAMINATION: General: In no apparent distress 12/03/22 1124 BP: 130/88 Pulse: 95 Resp: 18 Temp: 36.6 C (97.8 F) TempSrc: Temporal SpO2: 98% Weight: (!) 137.8 kg (303 lb 12.7 oz) HEENT: Unremarkable Neck: Supple, without lymphadenopathy, thyromegaly or JVD Chest: Few crackles, inspiratory squeaks Cardiac: Regular rate and rhythm, without murmurs, gallops or rubs Abdomen: Normal bowel sounds, soft, nontender, without hepatosplenomegaly Extremities: No clubbing, cyanosis or edema Musculoskeletal: No synovitis, but multiple PIPs, MCPs, wrists, knees and feet with tenderness to outpatient Skin: No rash or suspicious lesions of visualized exposed areas Neurologic: Nonfocal, strength 5/5 Pulmonary Function Data PFT available: No Date FVC FEV1 FEV1/FVC TLC DLCO 11/20/18 3.59/73.7 2.88/74.6 80 32.64/106.5 04/08/19 3.59/73.8 2.82/73.3 78 33.51/109.3 08/18/19 3.32/68.3 2.66/69.3 80 34.80/114.4 01/17/20 3.31/70.3 2.64/70.9 80 34.61/115.0 09/18/20 3.02/64 2.55/68 84 26.38/95 01/23/21 3.34/71.2 2.69/72.7 80 32.21/107.8 05/22/21 3.27/70.0 2.59/70.3 79 31.66/106.8 07/30/2021 2.79/59 2.19/59 78 24.67/83 09/05/2021 2.99/64 2.35/64 79 32.78/110 01/21/2022 3.36/72 2.58/70 77 30.88/104 08/07/22 3.16/68 2.49/68 79/99 32.44/110 12/13/22 3.32/77 2.55/74 77 34.75/[address] chest 08/15/2022 IMPRESSION: Few patchy upper lobe predominant groundglass opacities have near completely resolved, likely inflammatory/infectious in nature. Persistent mosaic attenuation of the lung parenchyma, which may be related to small airway or small vessel disease. No significant evidence of pulmonary fibrosis. Lung parenchyma and airways: Stable mild elevation of the right hemidiaphragm anteriorly. No focal consolidation. Previously noted multifocal groundglass opacities in the upper lobes have near completely resolved. Stable scarring and postsurgical changes in the left upper lobe. Stable curvilinear opacities in the left lower lobe (image 216) are likely related to post inflammatory scarring or atelectasis. No suspicious pulmonary nodules. Few granulomas are also noted. Mosaic attenuation of the lung parenchyma is noted with scattered areas of air trapping. Saber sheath tracheal morphology. The central airways are patent without endobronchial lesion also. No excessive dynamic airway collapse. Pleural space: No pleural effusion. Unchanged pleural thickening/scarring in the left upper lobe. Lower neck, lymph nodes, and mediastinum: The imaged thyroid gland is normal. No lymphadenopathy in the supraclavicular, axillary, mediastinal, or hilar regions. The esophagus is nondilated. Heart, pericardium, and thoracic vessels: The thoracic aorta is borderline ectatic measuring 3.8 cm in greatest transverse diameter. The main pulmonary artery is dilated measuring up to 3.4 cm in greatest transverse diameter, a finding that can be seen in pulmonary hypertension. Mild left atrial enlargement, otherwise the remaining cardiac chambers are within normal limits. Minimal coronary artery atherosclerotic calcifications are noted, although the study is not optimized for coronary assessment. No pericardial effusion or thickening. Bones and soft tissues: Partially imaged remote fracture of the lateral right 10th rib. Mild degenerative changes are noted in the thoracic spine. Upper abdomen: No abnormality in the imaged upper abdomen. Proposition Player (topogram) images: No additional findings. Echocardiography Echo 08/07/2022 Impression CONCLUSIONS: - Technically difficult exam due to body habitus. - Exam indication: Shortness of Breath - The left ventricle is normal in size. Left ventricular systolic function is normal. EF = 66 5% (2D 4-ch.) Definity contrast used for endocardial border detection. - The right ventricle is mildly dilated. Right ventricular systolic function is normal. - Exam was compared with the prior echocardiographic exam performed on 09/05/2021. Similar findings. RHC 08/15/2022 Abbreviated version Right atrial pressure (mean) 13.00 mmHg Mean pulmonary artery pressure 36.00 mmHg Pulmonary artery occlusion pressure (end-expiration) 29.00 mmHg Cardiac index (thermodilution) 1.68 L/min/m2 Pulmonary vascular resistance 1.71 Wood Units Mixed venous oxyhemoglobin 66.00 % Summary: Postcapillary PH with preserved cardiac index. Marked oscillation of pleural pressure likely reflecting and increase in the intrathoracic pressure. Esophageal balloon placement not offered given marked anxiety. Pleural pressure likely around 15-20 mmHg based on respiratory oscillation of pulmonary pressures. ASSESSMENT: IPAF Diastolic dysfunction Inflammatory polyarthritis IPAF with stable exercise tolerance and pulmonary function testing. He is maintained on imuran and plaquenil right now and joints are not controlled.. He had reaction to rituximab at last infusions. CT chest is unchanged and no acute process. RHC shows postcapillary PH. PLAN: Will send referral for tocilizumab Continue azathioprine for now with hopes to discontinue Discontinue prednisone Low sodium diet (<2000mg) Weight loss and exercise Lasix 20mg daily as needed Follow-up 3 months with labs, PFTs, walk, documented in this encounter [facility] 12-03-2022 Procedure note Associated Ord er(s): SIX MINUTE WALK Images from the original note were not included. RESPIRATORY THERAPY SIX MINUTE WALK TEST OXIMETRY REPORT Six Minute Walk Test for This Encounter Oxygen Device Liters FIO2 SpO2% HR Activity Feet Speed (MPH) Flag R/A 100 91 Resting R/A 94 146 Six Minute Walk 1750 3.3 R/A 97 122 Recovery 1 minute post R/A 100 115 Recovery 2 minute post R/A 99 110 Recovery 3 minute post General Information Height Weight Smoking Status Pulse Oximetry Site Oximeter Pre Blood Pressure Post Blood Pressure Total Time Spent (min) 174 cm (5' 8.5 ) 137.8 kg (303 lb 12.7 oz) -- Forehead Masimo 126/84 174/89 30 _ Distance Walked (meters) Distance Walked (feet) Male Predicted Walk Distance (feet) Male Lower Limit of Normal (feet) Male % Predicted Total Duration Of The Stops (seconds) 533.4 1750 1639.11 1137.11 106.8 -- _ Lowest SpO2 During 6 Minute Walk Pre-Laura Dyspnea Rating Pre-Laura Fatigue Rating Post Laura Dyspnea Rating Post Laura Fatigue Rating O2 Supply Carrier Walking Assistance/Device 94 % 0 0 3 4 -- None Six Minute Walk Trend (Previous Encounters) Test Date Distance Walked (feet) Oxygen Device Liters FIO2 SpO2% Laura Dyspnea Rating Laura Fatigue Rating 08/07/2022 1790 R/A 94 3 4 01/21/2022 1795 R/A 95 3 3 10/22/2021 1800 R/A 93 3 3 07/30/2021 1920 R/A 84 7 5 05/22/2021 1805 R/A 93 4 4 01/23/2021 1800 R/A 94 3 4 01/17/2020 1800 R/A 93 3 4 08/18/2019 1800 R/A 90 4 5 04/08/2019 1855 R/A 93 3 3 11/20/2018 1780 R/A 95 2 3 08/18/2018 1840 R/A 92 0 0 02/17/2018 1805 R/A 97 3 3 10/07/2017 1760 R/A 92 3 5 SIGNATURE: Lorena Malcolm RRT PATIENT NAME: Nino Rosa DATE: December 03, 2022 TIME: 10:32 AM The patient completed the six minute walk test with No stops. . The patient required Room Air to complete the test. The distance the patient walked in six minutes is within the predicted normal range. The six minute walk distance today does not demonstrate a clinically significant change (170 feet decrease), when compared to the historically highest six minute walk distance from a test dated 07/30/21. Today's distance represents a 40 feet decrease compared to the last visit on 08/07/22. The patient perceived their dyspnea during the six minute walk test to be 3-Moderate on the modified Laura scale. The patient perceived their fatigue during the six minute walk test to be 4-Somewhat severe on the modified Laura scale. I have reviewed the findings and made appropriate revisions as needed. SIGNATURE: Wesley Carlin MD PATIENT NAME: Nino Rosa DATE: December 03, 2022 TIME: 11:00 AM documented in this encounter [facility] 12-03-2022 History of Present illness Narrative PULM FUNCTION SMARTBLOCK: Provider: Jose Walter MD Spirometry: 1 DLCO: 1 6 MW: 1 documented in this encounter [facility] 08-28-2022 Note HNO ID: [id number] Author: Jose Walter MD Service: ? Author Type: Physician Type: Progress Notes Filed: 08/28/2022 2:49 PM Note Text: VIRTUAL VISIT PROGRESS NOTE VIRTUAL VISIT I have communicated my name and active licensure. The patient's identity and physical location were verified at the time of this visit. Either the patient or their legal sales representative has been informed of the risks and benefits of -- and alternatives to -- treatment through a remote evaluation and consents to proceed with the evaluation remotely. 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 He last saw Gela Jordan on 08/21 and since then he has had no significant interval events or change in symptomatology. He wants to get off prednisone. He states his lower extremity edema is somewhat better. However, he believes his shortness of breath is worse. He has no significant cough or wheeze. He has no near syncope, syncope, chest pain, palpitations, PND orthopnea. His joints are better on the prednisone. REVIEW OF SYSTEMS: is per history of present illness and is otherwise negative on detailed 14 point review. 08/28/22: Past medical, surgical, social, family, allergy and medication history reviewed and updated as appropriate. HISTORY REVIEWED (electronic chart updated): PAST MEDICAL HISTORY Diagnosis Date Gout HTN (hypertension) Interstitial lung disease (HCC) Lung nodules Tachycardia PAST SURGICAL HISTORY Procedure Laterality Date BRONCHOSCOPY PAST SURGICAL HISTORY OF 2013 VATS FAMILY HISTORY Problem Relation Age of Onset Ischemic Heart Disease Maternal Grandfather Social History Tobacco Use Smoking status: Former Packs/day: 1.00 Years: 20.00 Pack years: 20.00 Types: Cigarettes Quit date: 07/14/2007 Years since quittin.1 Smokeless tobacco: Never Tobacco comments: Smoked 1 ppd ~ 20 years; Denies Vaping Vaping Use Vaping Use: Never used Substance Use Topics Alcohol use: Yes Alcohol/week: 7.5 standard drinks Types: 3 Cans of Beer (12oz) per week Comment: Socially Drug use: No Current Outpatient Medications Medication Sig adalimumab 40 mg/0.4 mL subcutaneous pen kit (HUMIRA (CF)) Inject 40 mg subcutaneously every 2 weeks. predniSONE (DELTASONE) 20 mg tablet Take 1 tablet by mouth once daily. hydrOXYchloroQUINE (PLAQUENIL) 200 mg tablet Take 2 tablets by mouth once daily. sulfamethoxazole-trimethoprim (BACTRIM DS) 800-160 mg per tablet Take 1 tablet by mouth every Friday,Friday,Friday. DULoxetine (CYMBALTA) 60 mg capsule Take 1 capsule by mouth once daily. albuterol HFA (PROVENTIL HFA, VENTOLIN HFA) 90 mcg/actuation inhaler Inhale 2 Puffs as instructed every 4 hours as needed for wheezing/shortness of breath. azaTHIOprine (IMURAN) 50 mg tablet TAKE THREE (3) TABLETS BY MOUTH EVERY DAY amLODIPine (NORVASC) 10 mg tablet Take 10 mg by mouth once daily. Benzonatate 200 mg capsule Take by mouth. carBAMazepine (TEGRETOL) 200 mg tablet Take by mouth. aspirin, enteric coated (ASPIRIN, ENTERIC COATED) 81 mg EC tablet Take 81 mg by mouth once daily. oxyCODONE-acetaminophen (PERCOCET) 7.5-325 mg tablet Take 1 tablet by mouth every 12 hours as needed for pain. testosterone cypionate (DEPO-TESTOSTERONE) 200 mg/mL injection Inject 300 mg intramuscularly every 2 weeks. olmesartan (BENICAR) 40 mg tablet Take 40 mg by mouth once daily. ALLERGIES No Known Allergies PHYSICAL EXAMINATION: General: alert and appropriate, in no distress, well-hydrated, well nourished and happy, smiling, interactive Skin: no rash noted Head: normocephalic, no abnormality or lesion noted Respiratory: breathing non-labored and no grunting/flaring/retractions Chest: equal chest rise with normal respiratory effort Pulmonary Function Data PFT available: No Date FVC FEV1 FEV1/FVC TLC DLCO 11/20/18 3.59/73.7 2.88/74.6 80 32.64/106.5 04/08/19 3.59/73.8 2.82/73.3 78 33.51/109.3 08/18/19 3.32/68.3 2.66/69.3 80 34.80/114.4 01/17/20 3.31/70.3 2.64/70.9 80 34.61/115.0 09/18/20 3.02/64 2.55/68 84 26.38/95 01/23/21 3.34/71.2 2.69/72.7 80 32.21/107.8 05/22/21 3.27/70.0 2.59/70.3 79 31.66/106.8 07/30/2021 2.79/59 2.19/59 78 24.67/83 09/05/2021 2.99/64 2.35/64 79 32.78/110 01/21/2022 3.36/72 2.58/70 77 30.88/104 08/07/22 3.16/68 2.49/68 79/99 32.44/110 CT chest 08/15/2022 IMPRESSION: Few patchy upper lobe predominant groundglass opacities have near completely resolved, likely inflammatory/infectious in nature. Persistent mosaic attenuation of the lung parenchyma, which may be related to small airway or small vessel disease. No significant evidence of pulmonary fibrosis. Lung parenchyma and airways: Stable mild elevation of the right hemidiaphragm anteriorly. No focal consolidation. Previously noted multifocal groundglass opacities in the upper lobes have near completely resolved. Stable s (more content not included)... [facility] 08-28-2022 History of Present illness Narrative VIRTUAL VISIT PROGRESS NOTE VIRTUAL VISIT I have communicated my name and active licensure. The patient's identity and physical location were verified at the time of this visit. Either the patient or their legal sales representative has been informed of the risks and benefits of -- and alternatives to -- treatment through a remote evaluation and consents to proceed with the evaluation remotely. 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 He last saw Gela Jordan on 08/21 and since then he has had no significant interval events or change in symptomatology. He wants to get off prednisone. He states his lower extremity edema is somewhat better. However, he believes his shortness of breath is worse. He has no significant cough or wheeze. He has no near syncope, syncope, chest pain, palpitations, PND orthopnea. His joints are better on the prednisone. REVIEW OF SYSTEMS: is per history of present illness and is otherwise negative on detailed 14 point review. 08/28/22: Past medical, surgical, social, family, allergy and medication history reviewed and updated as appropriate. HISTORY REVIEWED (electronic chart updated): PAST MEDICAL HISTORY Diagnosis Date Gout HTN (hypertension) Interstitial lung disease (HCC) Lung nodules Tachycardia PAST SURGICAL HISTORY Procedure Laterality Date BRONCHOSCOPY PAST SURGICAL HISTORY OF 2013 VATS FAMILY HISTORY Problem Relation Age of Onset Ischemic Heart Disease Maternal Grandfather Social History Tobacco Use Smoking status: Former Packs/day: 1.00 Years: 20.00 Pack years: 20.00 Types: Cigarettes Quit date: 07/14/2007 Years since quittin.1 Smokeless tobacco: Never Tobacco comments: Smoked 1 ppd ~ 20 years; Denies Vaping Vaping Use Vaping Use: Never used Substance Use Topics Alcohol use: Yes Alcohol/week: 7.5 standard drinks Types: 3 Cans of Beer (12oz) per week Comment: Socially Drug use: No Current Outpatient Medications Medication Sig adalimumab 40 mg/0.4 mL subcutaneous pen kit (HUMIRA (CF)) Inject 40 mg subcutaneously every 2 weeks. predniSONE (DELTASONE) 20 mg tablet Take 1 tablet by mouth once daily. hydrOXYchloroQUINE (PLAQUENIL) 200 mg tablet Take 2 tablets by mouth once daily. sulfamethoxazole-trimethoprim (BACTRIM DS) 800-160 mg per tablet Take 1 tablet by mouth every Friday,Friday,Friday. DULoxetine (CYMBALTA) 60 mg capsule Take 1 capsule by mouth once daily. albuterol HFA (PROVENTIL HFA, VENTOLIN HFA) 90 mcg/actuation inhaler Inhale 2 Puffs as instructed every 4 hours as needed for wheezing/shortness of breath. azaTHIOprine (IMURAN) 50 mg tablet TAKE THREE (3) TABLETS BY MOUTH EVERY DAY amLODIPine (NORVASC) 10 mg tablet Take 10 mg by mouth once daily. Benzonatate 200 mg capsule Take by mouth. carBAMazepine (TEGRETOL) 200 mg tablet Take by mouth. aspirin, enteric coated (ASPIRIN, ENTERIC COATED) 81 mg EC tablet Take 81 mg by mouth once daily. oxyCODONE-acetaminophen (PERCOCET) 7.5-325 mg tablet Take 1 tablet by mouth every 12 hours as needed for pain. testosterone cypionate (DEPO-TESTOSTERONE) 200 mg/mL injection Inject 300 mg intramuscularly every 2 weeks. olmesartan (BENICAR) 40 mg tablet Take 40 mg by mouth once daily. ALLERGIES No Known Allergies PHYSICAL EXAMINATION: General: alert and appropriate, in no distress, well-hydrated, well nourished and happy, smiling, interactive Skin: no rash noted Head: normocephalic, no abnormality or lesion noted Respiratory: breathing non-labored and no grunting/flaring/retractions Chest: equal chest rise with normal respiratory effort Pulmonary Function Data PFT available: No Date FVC FEV1 FEV1/FVC TLC DLCO 11/20/18 3.59/73.7 2.88/74.6 80 32.64/106.5 04/08/19 3.59/73.8 2.82/73.3 78 33.51/109.3 08/18/19 3.32/68.3 2.66/69.3 80 34.80/114.4 01/17/20 3.31/70.3 2.64/70.9 80 34.61/115.0 09/18/20 3.02/64 2.55/68 84 26.38/95 01/23/21 3.34/71.2 2.69/72.7 80 32.21/107.8 05/22/21 3.27/70.0 2.59/70.3 79 31.66/106.8 07/30/2021 2.79/59 2.19/59 78 24.67/83 09/05/2021 2.99/64 2.35/64 79 32.78/110 01/21/2022 3.36/72 2.58/70 77 30.88/104 08/07/22 3.16/68 2.49/68 79/99 32.44/110 CT chest 08/15/2022 IMPRESSION: Few patchy upper lobe predominant groundglass opacities have near completely resolved, likely inflammatory/infectious in nature. Persistent mosaic attenuation of the lung parenchyma, which may be related to small airway or small vessel disease. No significant evidence of pulmonary fibrosis. Lung parenchyma and airways: Stable mild elevation of the right hemidiaphragm anteriorly. No focal consolidation. Previously noted multifocal groundglass opacities in the upper lobes have near completely resolved. Stable scarring and postsurgical changes in the left upper lobe. Stable curvilinear opacities in the left lower lobe (image 216) are likely related to post inflammatory scarring or atelectasis. No suspicious pulmonary nodules. Few granulomas are also noted. Mosaic attenuation of the lung parenchyma is noted with scattered areas of air trapping. Saber sheath tracheal morphology. The central airways are patent without endobronchial lesion also. No excessive dynamic airway collapse. Pleural space: No pleural effusion. Unchanged pleural thickening/scarring in the left upper lobe. Lower neck, lymph nodes, and mediastinum: The imaged thyroid gland is normal. No lymphadenopathy in the supraclavicular, axillary, mediastinal, or hilar regions. The esophagus is nondilated. Heart, pericardium, and thoracic vessels: The thoracic aorta is borderline ectatic measuring 3.8 cm in greatest transverse diameter. The main pulmonary artery is dilated measuring up to 3.4 cm in greatest transverse diameter, a finding that can be seen in pulmonary hypertension. Mild left atrial enlargement, otherwise the remaining cardiac chambers are within normal limits. Minimal coronary artery atherosclerotic calcifications are noted, although the study is not optimized for coronary assessment. No pericardial effusion or thickening. Bones and soft tissues: Partially imaged remote fracture of the lateral right 10th rib. Mild degenerative changes are noted in the thoracic spine. Upper abdomen: No abnormality in the imaged upper abdomen. Proposition Player (topogram) images: No additional findings. Echo 08/07/2022 Impression CONCLUSIONS: - Technically difficult exam due to body habitus. - Exam indication: Shortness of Breath - The left ventricle is normal in size. Left ventricular systolic function is normal. EF = 66 5% (2D 4-ch.) Definity contrast used for endocardial border detection. - The right ventricle is mildly dilated. Right ventricular systolic function is normal. - Exam was compared with the prior echocardiographic exam performed on 09/05/2021. Similar findings. RHC 08/15/2022 Abbreviated version Right atrial pressure (mean) 13.00 mmHg Mean pulmonary artery pressure 36.00 mmHg Pulmonary artery occlusion pressure (end-expiration) 29.00 mmHg Cardiac index (thermodilution) 1.68 L/min/m2 Pulmonary vascular resistance 1.71 Wood Units Mixed venous oxyhemoglobin 66.00 % Summary: Postcapillary PH with preserved cardiac index. Marked oscillation of pleural pressure likely reflecting and increase in the intrathoracic pressure. Esophageal balloon placement not offered given marked anxiety. Pleural pressure likely around 15-20 mmHg based on respiratory oscillation of pulmonary pressures. Plan: F/U with Dr Walter. Low salt in the diet. Weight loss. 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 He had CT chest and RHC and presents for VV today to discuss these results. He has had good response of his joints with the steroid, although his breathing is no better. He is maintained on imuran and plaquenil right now. He had reaction to rituximab at last infusions. CT chest is unchanged and no acute process. RHC shows postcapillary PH. PLAN: Will begin Humira every other week. May need to increase to weekly. Continue azathioprine for now with hopes to discontinue Discontinue prednisone Low sodium diet (<2000mg) Weight loss and exercise Lasix 20mg daily as needed Follow-up 3 months with labs, PFTs, walk, documented in this encounter [facility] 08-21-2022 Note HNO ID: [id number] Author: Gela Jordan APRN.DIRECTOR HOME Service: ? Author Type: Nurse Practitioner Type: Progress Notes Filed: 08/21/2022 9:24 AM Note Text: VIRTUAL VISIT PROGRESS NOTE This is a virtual visit using [employer] video visit. It required patient-provider interaction for the medical decision making as documented below. 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 He was previously on rituximab, had reaction following both his last two rituximab infusions on 04/10 and 04/24. He had no reactions like this previously with rituximab. He noted facial flushing, burning sensation in arms, LE edema, wheeze, congestion and increase in dyspnea. These were very much temporally related to the infusions. He was not feeling well during his appt in July with Dr. Walter, and was placed on a 2 week boost of prednisone and had CT chest and RHC. He returns to discuss these results. Mr. Rosa states that his joints are significantly better since being on the prednisone. However, the breathing is not improved, and in fact he feels that this is a bit worse. He states no LE extremity edema. BP under good control. He is faithful to his CPAP. No current infections HISTORY REVIEWED (electronic chart updated): PAST MEDICAL HISTORY Diagnosis Date Gout HTN (hypertension) Interstitial lung disease (HCC) Lung nodules Tachycardia PAST SURGICAL HISTORY Procedure Laterality Date BRONCHOSCOPY PAST SURGICAL HISTORY OF 2013 VATS FAMILY HISTORY Problem Relation Age of Onset Ischemic Heart Disease Maternal Grandfather Social History Tobacco Use Smoking status: Former Packs/day: 1.00 Years: 20.00 Pack years: 20.00 Types: Cigarettes Quit date: 07/14/2007 Years since quittin.1 Smokeless tobacco: Never Tobacco comments: Smoked 1 ppd ~ 20 years; Denies Vaping Vaping Use Vaping Use: Never used Substance Use Topics Alcohol use: Yes Alcohol/week: 7.5 standard drinks Types: 3 Cans of Beer (12oz) per week Comment: Socially Drug use: No Current Outpatient Medications Medication Sig predniSONE (DELTASONE) 20 mg tablet Take 1 tablet by mouth once daily. hydrOXYchloroQUINE (PLAQUENIL) 200 mg tablet Take 2 tablets by mouth once daily. sulfamethoxazole-trimethoprim (BACTRIM DS) 800-160 mg per tablet Take 1 tablet by mouth every Friday,Friday,Friday. DULoxetine (CYMBALTA) 60 mg capsule Take 1 capsule by mouth once daily. albuterol HFA (PROVENTIL HFA, VENTOLIN HFA) 90 mcg/actuation inhaler Inhale 2 Puffs as instructed every 4 hours as needed for wheezing/shortness of breath. azaTHIOprine (IMURAN) 50 mg tablet TAKE THREE (3) TABLETS BY MOUTH EVERY DAY amLODIPine (NORVASC) 10 mg tablet Take 10 mg by mouth once daily. Benzonatate 200 mg capsule Take by mouth. carBAMazepine (TEGRETOL) 200 mg tablet Take by mouth. aspirin, enteric coated (ASPIRIN, ENTERIC COATED) 81 mg EC tablet Take 81 mg by mouth once daily. oxyCODONE-acetaminophen (PERCOCET) 7.5-325 mg tablet Take 1 tablet by mouth every 12 hours as needed for pain. testosterone cypionate (DEPO-TESTOSTERONE) 200 mg/mL injection Inject 300 mg intramuscularly every 2 weeks. olmesartan (BENICAR) 40 mg tablet Take 40 mg by mouth once daily. RITUXIMAB (RITUXAN INTRAVEN.) Inject 1,000 mg intravenously. 2 treatments 2 weeks apart and may repeat in 6 months Current Facility-Administered Medications Medication Dose Route Frequency sodium chloride 0.9 % (flush) 10 mL (BD POSIFLUSH) 10 mL INTRAVENOUS DIRECTED PRN sodium chloride 0.9 % (flush) 10 mL (BD POSIFLUSH) 10 mL INTRAVENOUS DIRECTED PRN ALLERGIES No Known Allergies REVIEW OF SYSTEMS GENERAL: No weight loss, malaise or fevers HEENT: Negative for frequent or significant headaches, No changes in hearing or vision, no nose bleeds or other nasal problems NECK: Negative for lumps, goiter, pain and significant neck swelling RESPIRATORY: See HPI CARDIOVASCULAR: Negative for chest pain, leg swelling, hypertension, CHF or palpitations GI: No nausea, vomiting, or diarrhea and No heartburn or reflux symptoms MUSCULOSKELETAL: Negative for joint pain or swelling, back pain or muscle pain SKIN: Negative for lesions, rash, and itching HEMATOLOGY/LYMPHOLOGY: Negative for prolonged bleeding, bruising easily or swollen nodes NEURO: No history of headaches, syncope, paralysis, seizures or tremors PHYSICAL EXAMINATION: VIDEO EXAM: (if completed, performed via video enabled technology) GENERAL: alert and appropriate, in no distress, well-hydrated, well nourished, and happy, smiling, interactive HEAD: normocephalic, no abnormality or lesion noted RESPIRATORY: breathing non-labored CHEST: equal chest rise with normal respiratory effort NEUROLOGIC: no obvious deficit Pulmonary Function Data PFT available: No Date FVC FEV1 FEV1/FVC TLC DLCO 11/20/18 3.59/73.7 2.88/74.6 80 32.64/106.5 04/08/19 3.59/73.8 2. (more content not included)... [facility] 08-21-2022 History of Present illness Narrative VIRTUAL VISIT PROGRESS NOTE This is a virtual visit using [employer] video visit. It required patient-provider interaction for the medical decision making as documented below. 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 He was previously on rituximab, had reaction following both his last two rituximab infusions on 04/10 and 04/24. He had no reactions like this previously with rituximab. He noted facial flushing, burning sensation in arms, LE edema, wheeze, congestion and increase in dyspnea. These were very much temporally related to the infusions. He was not feeling well during his appt in July with Dr. Walter, and was placed on a 2 week boost of prednisone and had CT chest and RHC. He returns to discuss these results. Mr. Rosa states that his joints are significantly better since being on the prednisone. However, the breathing is not improved, and in fact he feels that this is a bit worse. He states no LE extremity edema. BP under good control. He is faithful to his CPAP. No current infections HISTORY REVIEWED (electronic chart updated): PAST MEDICAL HISTORY Diagnosis Date Gout HTN (hypertension) Interstitial lung disease (HCC) Lung nodules Tachycardia PAST SURGICAL HISTORY Procedure Laterality Date BRONCHOSCOPY PAST SURGICAL HISTORY OF 2013 VATS FAMILY HISTORY Problem Relation Age of Onset Ischemic Heart Disease Maternal Grandfather Social History Tobacco Use Smoking status: Former Packs/day: 1.00 Years: 20.00 Pack years: 20.00 Types: Cigarettes Quit date: 07/14/2007 Years since quittin.1 Smokeless tobacco: Never Tobacco comments: Smoked 1 ppd ~ 20 years; Denies Vaping Vaping Use Vaping Use: Never used Substance Use Topics Alcohol use: Yes Alcohol/week: 7.5 standard drinks Types: 3 Cans of Beer (12oz) per week Comment: Socially Drug use: No Current Outpatient Medications Medication Sig predniSONE (DELTASONE) 20 mg tablet Take 1 tablet by mouth once daily. hydrOXYchloroQUINE (PLAQUENIL) 200 mg tablet Take 2 tablets by mouth once daily. sulfamethoxazole-trimethoprim (BACTRIM DS) 800-160 mg per tablet Take 1 tablet by mouth every Friday,Friday,Friday. DULoxetine (CYMBALTA) 60 mg capsule Take 1 capsule by mouth once daily. albuterol HFA (PROVENTIL HFA, VENTOLIN HFA) 90 mcg/actuation inhaler Inhale 2 Puffs as instructed every 4 hours as needed for wheezing/shortness of breath. azaTHIOprine (IMURAN) 50 mg tablet TAKE THREE (3) TABLETS BY MOUTH EVERY DAY amLODIPine (NORVASC) 10 mg tablet Take 10 mg by mouth once daily. Benzonatate 200 mg capsule Take by mouth. carBAMazepine (TEGRETOL) 200 mg tablet Take by mouth. aspirin, enteric coated (ASPIRIN, ENTERIC COATED) 81 mg EC tablet Take 81 mg by mouth once daily. oxyCODONE-acetaminophen (PERCOCET) 7.5-325 mg tablet Take 1 tablet by mouth every 12 hours as needed for pain. testosterone cypionate (DEPO-TESTOSTERONE) 200 mg/mL injection Inject 300 mg intramuscularly every 2 weeks. olmesartan (BENICAR) 40 mg tablet Take 40 mg by mouth once daily. RITUXIMAB (RITUXAN INTRAVEN.) Inject 1,000 mg intravenously. 2 treatments 2 weeks apart and may repeat in 6 months Current Facility-Administered Medications Medication Dose Route Frequency sodium chloride 0.9 % (flush) 10 mL (BD POSIFLUSH) 10 mL INTRAVENOUS DIRECTED PRN sodium chloride 0.9 % (flush) 10 mL (BD POSIFLUSH) 10 mL INTRAVENOUS DIRECTED PRN ALLERGIES No Known Allergies REVIEW OF SYSTEMS GENERAL: No weight loss, malaise or fevers HEENT: Negative for frequent or significant headaches, No changes in hearing or vision, no nose bleeds or other nasal problems NECK: Negative for lumps, goiter, pain and significant neck swelling RESPIRATORY: See HPI CARDIOVASCULAR: Negative for chest pain, leg swelling, hypertension, CHF or palpitations GI: No nausea, vomiting, or diarrhea and No heartburn or reflux symptoms MUSCULOSKELETAL: Negative for joint pain or swelling, back pain or muscle pain SKIN: Negative for lesions, rash, and itching HEMATOLOGY/LYMPHOLOGY: Negative for prolonged bleeding, bruising easily or swollen nodes NEURO: No history of headaches, syncope, paralysis, seizures or tremors PHYSICAL EXAMINATION: VIDEO EXAM: (if completed, performed via video enabled technology) GENERAL: alert and appropriate, in no distress, well-hydrated, well nourished, and happy, smiling, interactive HEAD: normocephalic, no abnormality or lesion noted RESPIRATORY: breathing non-labored CHEST: equal chest rise with normal respiratory effort NEUROLOGIC: no obvious deficit Pulmonary Function Data PFT available: No Date FVC FEV1 FEV1/FVC TLC DLCO 11/20/18 3.59/73.7 2.88/74.6 80 32.64/106.5 04/08/19 3.59/73.8 2.82/73.3 78 33.51/109.3 08/18/19 3.32/68.3 2.66/69.3 80 34.80/114.4 01/17/20 3.31/70.3 2.64/70.9 80 34.61/115.0 09/18/20 3.02/64 2.55/68 84 26.38/95 01/23/21 3.34/71.2 2.69/72.7 80 32.21/107.8 05/22/21 3.27/70.0 2.59/70.3 79 31.66/106.8 07/30/2021 2.79/59 2.19/59 78 24.67/83 09/05/2021 2.99/64 2.35/64 79 32.78/110 01/21/2022 3.36/72 2.58/70 77 30.88/104 08/07/22 3.16/68 2.49/68 79/99 32.44/110 CT chest 08/15/2022 IMPRESSION: Few patchy upper lobe predominant groundglass opacities have near completely resolved, likely inflammatory/infectious in nature. Persistent mosaic attenuation of the lung parenchyma, which may be related to small airway or small vessel disease. No significant evidence of pulmonary fibrosis. Lung parenchyma and airways: Stable mild elevation of the right hemidiaphragm anteriorly. No focal consolidation. Previously noted multifocal groundglass opacities in the upper lobes have near completely resolved. Stable scarring and postsurgical changes in the left upper lobe. Stable curvilinear opacities in the left lower lobe (image 216) are likely related to post inflammatory scarring or atelectasis. No suspicious pulmonary nodules. Few granulomas are also noted. Mosaic attenuation of the lung parenchyma is noted with scattered areas of air trapping. Saber sheath tracheal morphology. The central airways are patent without endobronchial lesion also. No excessive dynamic airway collapse. Pleural space: No pleural effusion. Unchanged pleural thickening/scarring in the left upper lobe. Lower neck, lymph nodes, and mediastinum: The imaged thyroid gland is normal. No lymphadenopathy in the supraclavicular, axillary, mediastinal, or hilar regions. The esophagus is nondilated. Heart, pericardium, and thoracic vessels: The thoracic aorta is borderline ectatic measuring 3.8 cm in greatest transverse diameter. The main pulmonary artery is dilated measuring up to 3.4 cm in greatest transverse diameter, a finding that can be seen in pulmonary hypertension. Mild left atrial enlargement, otherwise the remaining cardiac chambers are within normal limits. Minimal coronary artery atherosclerotic calcifications are noted, although the study is not optimized for coronary assessment. No pericardial effusion or thickening. Bones and soft tissues: Partially imaged remote fracture of the lateral right 10th rib. Mild degenerative changes are noted in the thoracic spine. Upper abdomen: No abnormality in the imaged upper abdomen. Proposition Player (topogram) images: No additional findings. Echo 08/07/2022 Impression CONCLUSIONS: - Technically difficult exam due to body habitus. - Exam indication: Shortness of Breath - The left ventricle is normal in size. Left ventricular systolic function is normal. EF = 66 5% (2D 4-ch.) Definity contrast used for endocardial border detection. - The right ventricle is mildly dilated. Right ventricular systolic function is normal. - Exam was compared with the prior echocardiographic exam performed on 09/05/2021. Similar findings. RHC 08/15/2022 Abbreviated version Right atrial pressure (mean) 13.00 mmHg Mean pulmonary artery pressure 36.00 mmHg Pulmonary artery occlusion pressure (end-expiration) 29.00 mmHg Cardiac index (thermodilution) 1.68 L/min/m2 Pulmonary vascular resistance 1.71 Wood Units Mixed venous oxyhemoglobin 66.00 % Summary: Postcapillary PH with preserved cardiac index. Marked oscillation of pleural pressure likely reflecting and increase in the intrathoracic pressure. Esophageal balloon placement not offered given marked anxiety. Pleural pressure likely around 15-20 mmHg based on respiratory oscillation of pulmonary pressures. Plan: F/U with Dr Walter. Low salt in the diet. Weight loss. ASSESSMENT: IPAF with worsening symptoms and physiology. He had CT chest and RHC and presents for VV today to discuss these results. He has had good response of his joints with the steroid, although his breathing is no better. He is maintained on imuran and plaquenil right now. He had reaction to rituximab at last infusions. CT chest is unchanged and no acute process. RHC shows postcapillary PH. PLAN: Continue imuran and plaquenil. Finish prednisone course as directed. We discussed low salt diet (<2500mg/day), BP control and weight loss Will discuss with Dr. Walter about immunosuppression regimen. Perhaps Actemra or Humira and option. Likely will not pursue further Rituximab infusions due to reaction. I spent a total of 40 minutes on the date of the service which included preparing to see the patient, [id number] patient care, completing clinical documentation, obtaining and/or reviewing separately obtained history, performing a medically appropriate examination, counseling and educating the patient/family/caregiver, and ordering medications, tests, or procedures Gela Jordan APRN.RAMESH documented in this encounter [facility] 08-15-2022 Note HNO ID: [id number] Author: Morgan Bo MD Service: ? Author Type: Physician Type: Progress Notes Filed: 08/15/2022 2:25 PM Note Text: Patient Name: Nino Rosa Patient Date of Procedure: August 15, 2022 Time of Procedure: 13:30 UNIVERSAL PROTOCOL / SAFETY CHECKLIST Procedure to be performed: Right Heart Catheterization Sign in Communication: completed Time Out: Team Confirms the Correct Patient, Correct Procedure, Correct Site and Site Marking, Correct Position (if applicable). Time: 13:55 Affirmation of Time Out: YES Sign Out Discussion: Completed Procedure start time: 13:59 Procedure end time: 14:30 Staff involved: Morgan Bo MD Postie(s): Nadege Mccormick placed the central line and advanced the pulmonary artery catheter under Dr Bo?s direct supervision. Nurse(s): Gil Ness RN and Vita Sanchez Procedure(s): Right Heart Catheterization. 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 Access site: Right internal jugular vein Schneider Crissy size: 7.5 F. Anesthesia: Lidocaine 1% Procedure Narrative: Consent was obtained. Time out taken. Performed at procedure room in 1. Under sterile condition, lidocaine 1 % (5 ml) was applied and under US guidance a 8.5 F introducer was inserted without difficulty. Wire was noted to be located in the SVC under fluoroscopy. A Schneider-Crissy catheter was advanced to the right pulmonary artery without difficulties (RA, RV, PA pressures were measured). Wedge was obtained and confirmed to be appropriate by fluoroscopy (stable catheter) and blood gas analysis. Mixed venous blood was obtained for indirect Dolly determination. CO was determined by thermodilution and indirect Dolly methodology. Disposition: Patient was discharged in stable condition. RHC determinations Determinations Result Units Rhythm NSR Inspired fraction of oxygen 21.00 % Oxygen flow 0.00 L/min SpO2 98.00 % Systolic BP 144.00 mmHg Diastolic BP 63.00 mmHg Mean BP 90.00 mmHg Heart Rate 104.00 bpm Height 173.80 cm Weight 136.10 Kg Body surface area 2.44 m2 Body mass index 45.06 kg/m2 Right atrial pressure (mean) 13.00 mmHg Right atrial pressure (mean) peak v wave (end-expiration) 25.00 mmHg Right ventricular systolic pressure 46.00 mmHg Right ventricular end-diastolic pressure 13.00 mmHg Systolic pulmonary artery pressure 46.00 mmHg Mean pulmonary artery pressure 36.00 mmHg Diastolic pulmonary artery pressure 31.00 mmHg Pumonary artery pulse pressure 15.00 mmHg Pulmonary artery occlusion pressure (mean) 23.00 mmHg Pulmonary artery occlusion pressure (end-expiration) 29.00 mmHg Pulmonary artery occlusion pressure (end-expiration) peak v wave 29.00 Diastolic pulmonary gradient 15.00 mmHg Transpulmonary gradient 7.00 mmHg Pulmonary artery capacitance 2.63 mL/mmHg Cardiac output (thermodilution) 4.10 L/min Cardiac index (thermodilution) 1.68 L/min/m2 Cardiac output (indirect DOLLY) 4.10 L/min Cardiac index (indirect DOLLY) 1.68 L/min/m2 Systemic vascular resistance 1502.44 dynes/sec/cm5 Stroke volume 39.42 mL Stroke volume index 16.16 mL/m2 Right ventricular stroke work index 5.06 g*m/m2 Pulmonary vascular resistance 1.71 Wood Units Hemoglobin (mixed venous) 17.10 g/dL Arterial oxyhemoglobin 98.00 % Mixed venous oxyhemoglobin 66.00 % Lactic acid (arterial) 2.40 mmol/L Abbreviated version Right atrial pressure (mean) 13.00 mmHg Mean pulmonary artery pressure 36.00 mmHg Pulmonary artery occlusion pressure (end-expiration) 29.00 mmHg Cardiac index (thermodilution) 1.68 L/min/m2 Pulmonary vascular resistance 1.71 Wood Units Mixed venous oxyhemoglobin 66.00 % RA: PAP: PAWP: RV pullback: Estimated Blood Loss: 10 ml( blood discarded when measuring oxygenation) + 30 mL research. Specimens: Mixed venous blood gases. Complications: None. Introducer removed without complications. Pressure applied for 10 minutes. No Bleeding. Condition of Patient After Procedure: stable Radiation Exposure: Fluoro time 0.27 min:sec Cumulative area dose product 3523.20 cGy cm2 Cumulative air kerma 8.30 mGy Summary: Postcapillary PH with preserved cardiac index. Marked oscillation of pleural pressure likely reflecting and increase in the intrathoracic pressure. Esophageal balloon placement not offered given marked anxiety. Pleural pressure likely around 15-20 mmHg based on respiratory oscillation of pulmonary pressures. Plan: F/U with Dr Walter. Low salt in the diet. Weight loss. Authenticated by Morgan Bo MD on August 15, 2022 at 1:53 PM. [facility] 08-15-2022 Note HNO ID: [id number] Author: RT Willam(R) Service: Radiology Author Type: Technologist Type: Progress Notes Filed: 08/15/2022 12:50 PM Note Text: Radiology Service Progress Note PATIENT NAME: Nino Rosa DATE OF SERVICE: August 15, 2022 TIME: 12:49 PM PATIENT IDENTITY VERIFICATION COMPLETED USING TWO (2) IDENTIFIERS: Name and Date of confirmed by patient verbally. FALL SCREENING: Has the patient had 2 falls in the last year or 1 fall with injury or currently using an Ambulatory Assistive Device (Walker, Cane, Wheelchair, Crutches, etc.)? No PATIENT GENDER DATA: Male PATIENT RELEVANT IMPLANT DATA REVIEWED: Yes RADIOLOGY DEPARTMENT: CT; Exam(s) Completed: Chest PERIPHERAL IV DATA: Not applicable SIGNED BY: Hyun Isabel RT(R) August 15, 2022 12:49 PM [facility] 08-15-2022 History of Present illness Narrative Images from the original note were not included. Patient Name: Nino Rosa Patient Date of Procedure: August 15, 2022 Time of Procedure: 13:30 UNIVERSAL PROTOCOL / SAFETY CHECKLIST Procedure to be performed: Right Heart Catheterization Sign in Communication: completed Time Out: Team Confirms the Correct Patient, Correct Procedure, Correct Site and Site Marking, Correct Position (if applicable). Time: 13:55 Affirmation of Time Out: YES Sign Out Discussion: Completed Procedure start time: 13:59 Procedure end time: 14:30 Staff involved: Morgan Bo MD Postie(s): Nadege Mccormick placed the central line and advanced the pulmonary artery catheter under Dr Bo s direct supervision. Nurse(s): Gil Ness RN and Vita Sanchez Procedure(s): Right Heart Catheterization. 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 Access site: Right internal jugular vein Schneider Crissy size: 7.5 F. Anesthesia: Lidocaine 1% Procedure Narrative: Consent was obtained. Time out taken. Performed at procedure room in 1. Under sterile condition, lidocaine 1 % (5 ml) was applied and under US guidance a 8.5 F introducer was inserted without difficulty. Wire was noted to be located in the SVC under fluoroscopy. A Schneider-Crissy catheter was advanced to the right pulmonary artery without difficulties (RA, RV, PA pressures were measured). Wedge was obtained and confirmed to be appropriate by fluoroscopy (stable catheter) and blood gas analysis. Mixed venous blood was obtained for indirect Dolly determination. CO was determined by thermodilution and indirect Dolly methodology. Disposition: Patient was discharged in stable condition. RHC determinations Determinations Result Units Rhythm NSR Inspired fraction of oxygen 21.00 % Oxygen flow 0.00 L/min SpO2 98.00 % Systolic BP 144.00 mmHg Diastolic BP 63.00 mmHg Mean BP 90.00 mmHg Heart Rate 104.00 bpm Height 173.80 cm Weight 136.10 Kg Body surface area 2.44 m2 Body mass index 45.06 kg/m2 Right atrial pressure (mean) 13.00 mmHg Right atrial pressure (mean) peak v wave (end-expiration) 25.00 mmHg Right ventricular systolic pressure 46.00 mmHg Right ventricular end-diastolic pressure 13.00 mmHg Systolic pulmonary artery pressure 46.00 mmHg Mean pulmonary artery pressure 36.00 mmHg Diastolic pulmonary artery pressure 31.00 mmHg Pumonary artery pulse pressure 15.00 mmHg Pulmonary artery occlusion pressure (mean) 23.00 mmHg Pulmonary artery occlusion pressure (end-expiration) 29.00 mmHg Pulmonary artery occlusion pressure (end-expiration) peak v wave 29.00 Diastolic pulmonary gradient 15.00 mmHg Transpulmonary gradient 7.00 mmHg Pulmonary artery capacitance 2.63 mL/mmHg Cardiac output (thermodilution) 4.10 L/min Cardiac index (thermodilution) 1.68 L/min/m2 Cardiac output (indirect DOLLY) 4.10 L/min Cardiac index (indirect DOLLY) 1.68 L/min/m2 Systemic vascular resistance 1502.44 dynes/sec/cm5 Stroke volume 39.42 mL Stroke volume index 16.16 mL/m2 Right ventricular stroke work index 5.06 g*m/m2 Pulmonary vascular resistance 1.71 Wood Units Hemoglobin (mixed venous) 17.10 g/dL Arterial oxyhemoglobin 98.00 % Mixed venous oxyhemoglobin 66.00 % Lactic acid (arterial) 2.40 mmol/L Abbreviated version Right atrial pressure (mean) 13.00 mmHg Mean pulmonary artery pressure 36.00 mmHg Pulmonary artery occlusion pressure (end-expiration) 29.00 mmHg Cardiac index (thermodilution) 1.68 L/min/m2 Pulmonary vascular resistance 1.71 Wood Units Mixed venous oxyhemoglobin 66.00 % RA: PAP: PAWP: RV pullback: Estimated Blood Loss: 10 ml( blood discarded when measuring oxygenation) + 30 mL research. Specimens: Mixed venous blood gases. Complications: None. Introducer removed without complications. Pressure applied for 10 minutes. No Bleeding. Condition of Patient After Procedure: stable Radiation Exposure: Fluoro time 0.27 min:sec Cumulative area dose product 3523.20 cGy cm2 Cumulative air kerma 8.30 mGy Summary: Postcapillary PH with preserved cardiac index. Marked oscillation of pleural pressure likely reflecting and increase in the intrathoracic pressure. Esophageal balloon placement not offered given marked anxiety. Pleural pressure likely around 15-20 mmHg based on respiratory oscillation of pulmonary pressures. Plan: F/U with Dr Walter. Low salt in the diet. Weight loss. Authenticated by Morgan Bo MD on August 15, 2022 at 1:53 PM. documented in this encounter [facility] 08-15-2022 History of Present illness Narrative Radiology Service Progress Note PATIENT NAME: Nino Rosa DATE OF SERVICE: August 15, 2022 TIME: 12:49 PM PATIENT IDENTITY VERIFICATION COMPLETED USING TWO (2) IDENTIFIERS: Name and Date of confirmed by patient verbally. FALL SCREENING: Has the patient had 2 falls in the last year or 1 fall with injury or currently using an Ambulatory Assistive Device (Walker, Cane, Wheelchair, Crutches, etc.)? No PATIENT GENDER DATA: Male PATIENT RELEVANT IMPLANT DATA REVIEWED: Yes RADIOLOGY DEPARTMENT: CT; Exam(s) Completed: Chest PERIPHERAL IV DATA: Not applicable SIGNED BY: RT Willam(R) August 15, 2022 12:49 PM documented in this encounter [facility] 08-07-2022 Note HNO ID: [id number] Author: RT Chase(Carin) Service: ? Author Type: Technologist Type: Progress Notes Filed: 08/07/2022 2:30 PM Note Text: Radiology Service Progress Note PATIENT NAME: Nino Rosa DATE OF SERVICE: August 07, 2022 TIME: 2:29 PM PATIENT IDENTITY VERIFICATION COMPLETED USING TWO (2) IDENTIFIERS: Name and Date of confirmed by patient verbally. FALL SCREENING: Has the patient had 2 falls in the last year or 1 fall with injury or currently using an Ambulatory Assistive Device (Walker, Cane, Wheelchair, Crutches, etc.)? No PATIENT GENDER DATA: Male PATIENT RELEVANT IMPLANT DATA REVIEWED: Not Applicable RADIOLOGY DEPARTMENT: General X-ray: Exam(s) Completed: Lower Extremity X-Ray(s): Knee, AP / Lat / Tunne / Merchant Bilateral and Wt. Bearing PERIPHERAL IV DATA: Not applicable SIGNED BY: RT Chase(R) August 07, 2022 2:29 PM [facility] 08-07-2022 History of Present illness Narrative Radiology Service Progress Note PATIENT NAME: Nino Rosa DATE OF SERVICE: August 07, 2022 TIME: 2:29 PM PATIENT IDENTITY VERIFICATION COMPLETED USING TWO (2) IDENTIFIERS: Name and Date of confirmed by patient verbally. FALL SCREENING: Has the patient had 2 falls in the last year or 1 fall with injury or currently using an Ambulatory Assistive Device (Walker, Cane, Wheelchair, Crutches, etc.)? No PATIENT GENDER DATA: Male PATIENT RELEVANT IMPLANT DATA REVIEWED: Not Applicable RADIOLOGY DEPARTMENT: General X-ray: Exam(s) Completed: Lower Extremity X-Ray(s): Knee, AP / Lat / Tunne / Merchant Bilateral and Wt. Bearing PERIPHERAL IV DATA: Not applicable SIGNED BY: RT Chase(R) August 07, 2022 2:29 PM documented in this encounter [facility] 08-07-2022 Note HNO ID: [id number] Author: Jose Walter MD Service: ? Author Type: Physician Type: Progress Notes Filed: 08/21/2022 9:19 PM Note Text: HISTORY OF PRESENT ILLNESS: Nino Rosa is a very pleasant 52 year old male who presents today for routine follow-up for IPAF. He was last seen by Gela Jordan in April 2022 and since then he reports no significant interval events or changes in symptomatology. He is not doing well and believes that he is slowly declining. He just doesn't feel good all over. He states that his stomach doesn't always feel good, he is often fatigued, and today his legs are swollen and sore. Right now his biggest complaint his how much he hurts from a joint perspective. He says this is more localized to his lower extremities, such as his ankles, feet, and knees. Because of his constant pain he is unable to get comfortable. He confirms morning stiffness that last a few minutes. He has also had joint swelling in his knees and feels like his thighs are tight. He has also been getting nose bleeds every morning and has seen an ENT about it - he was told everything looked good. Otherwise, his eyes, ears, throat, and sinuses are okay. He also admits that his shortness of breath has been getting worse, he is unable to do things around is house without feeling out of breath. He confirms wheeze but denies cough. He has been trying to lose some weight and has lost about 7 pounds in the last month. He admits that he knows losing weight would be a benefit for him. He denies near syncope, syncope, chest pain, palpitations, PND, and orthopnea. He is faithful to his CPAP. He is unsure what to do about his Rituxan infusions. The last time he saw Gela in April he mentioned how he was getting reactions to the infusions. He was getting strong flush feelings that would come and go, leg swelling, and general malaise. It has been 4 months since his last infusion. He really does not want to take steroids for his current symptoms but he will if he has to. He has never had a RHC done. He notes the last COVID booster shot made him feel awful - it freaked him out. REVIEW OF SYSTEMS: MRC Dyspnea Scale: 2. Short of breath when hurrying or walking up a slight hill Otherwise, all others per history of present illness or negative on detailed 14 point review. 08/07/22: Past medical, surgical, social, family, allergy and medication history reviewed and updated as appropriate. PAST MEDICAL HISTORY Diagnosis Date Gout HTN (hypertension) Interstitial lung disease (HCC) Lung nodules Tachycardia PAST SURGICAL HISTORY Procedure Laterality Date BRONCHOSCOPY PAST SURGICAL HISTORY OF 2014 VATS SOCIAL HISTORY: Social History Tobacco Use Smoking status: Former Packs/day: 1.00 Years: 20.00 Pack years: 20 Types: Cigarettes Quit date: 07/14/2007 Years since quittin.0 Smokeless tobacco: Never Tobacco comments: Smoked 1 ppd ~ 20 years; Denies Vaping Alcohol Use: Approximately 4.5 oz/week [which includes 3 Cans of Beer (12oz) per week] (Socially) Drug Use: No FAMILY HISTORY Problem Relation Age of Onset Ischemic Heart Disease Maternal Grandfather ALLERGIES No Known Allergies CURRENT MEDICATIONS hydrOXYchloroQUINE (PLAQUENIL) 200 mg tabletTake 2 tablets by mouth once daily.Disp: 180 tabletRfl: 0 sulfamethoxazole-trimethoprim (BACTRIM DS) 800-160 mg per tabletTake 1 tablet by mouth every Friday,Friday,Friday.Disp: 36 tabletRfl: 3 DULoxetine (CYMBALTA) 60 mg capsuleTake 1 capsule by mouth once daily.Disp: 30 capsuleRfl: 0 albuterol HFA (PROVENTIL HFA, VENTOLIN HFA) 90 mcg/actuation inhalerInhale 2 Puffs as instructed every 4 hours as needed for wheezing/shortness of breath.Disp: 18 gRfl: 3 azaTHIOprine (IMURAN) 50 mg tabletTAKE THREE (3) TABLETS BY MOUTH EVERY DAYDisp: 270 tabletRfl: 3 amLODIPine (NORVASC) 10 mg tabletTake 10 mg by mouth once daily.Disp: Rfl: oxyCODONE-acetaminophen (PERCOCET) 7.5-325 mg tabletTake 1 tablet by mouth every 12 hours as needed for pain.Disp: Rfl: testosterone cypionate (DEPO-TESTOSTERONE) 200 mg/mL injectionInject 300 mg intramuscularly every 2 weeks.Disp: Rfl: 0 olmesartan (BENICAR) 40 mg tabletTake 40 mg by mouth once daily.Disp: Rfl: RITUXIMAB (RITUXAN INTRAVEN.)Inject 1,000 mg intravenously. 2 treatments 2 weeks apart and may repeat in 6 monthsDisp: Rfl: Benzonatate 200 mg capsuleTake by mouth.Disp: Rfl: carBAMazepine (TEGRETOL) 200 mg tabletTake by mouth.Disp: Rfl: aspirin, enteric coated (ASPIRIN, ENTERIC COATED) 81 mg EC tabletTake 81 mg by mouth once daily.Disp: Rfl: PHYSICAL EXAM: General: In no apparent distress 08/07/22 1302 BP: 106/77 Pulse: 106 Resp: 18 Temp: 36.6 ?C (97.8 ?F) TempSrc: Temporal SpO2: 96% Weight: 136.1 kg (300 lb) HEENT: Unremarkable; Neck: Supple, without lymphadenopathy, thyromegaly or JVD Chest: coarse brush sounds at the base with in (more content not included)... [facility] 08-07-2022 Note HNO ID: [id number] Author: Josi Cobb, [employer] Service: ? Author Type: Registered Resp Therapist Type: Procedures Filed: 08/07/2022 1:14 PM Note Text: RESPIRATORY THERAPY SIX MINUTE WALK TEST OXIMETRY REPORT Six Minute Walk Test for This Encounter Oxygen Device Liters FIO2 SpO2% HR Activity Feet Speed (MPH) Flag R/A 100 96 Resting R/A 94 156 Six Minute Walk 1790 3.4 R/A 97 134 Recovery 1 minute post R/A 100 120 Recovery 2 minute post R/A 98 117 Recovery 3 minute post General Information Height Weight Smoking Status Pulse Oximetry Site Oximeter Pre Blood Pressure Post Blood Pressure Total Time Spent (min) 173.8 cm (5' 8.43 ) 141 kg (310 lb 13.6 oz) Ex-smoker Forehead Masimo 122/83 155/63 30 _ Distance Walked (meters) Distance Walked (feet) Male Predicted Walk Distance (feet) Male Lower Limit of Normal (feet) Male % Predicted Total Duration Of The Stops (seconds) 545.59 1790 1615.49 1113.49 110.8 -- _ Lowest SpO2 During 6 Minute Walk Pre-Laura Dyspnea Rating Pre-Laura Fatigue Rating Post Laura Dyspnea Rating Post Laura Fatigue Rating O2 Supply Carrier Walking Assistance/Device 92 % 0 0 3 4 -- None Six Minute Walk Trend (Previous Encounters) Test Date Distance Walked (feet) Oxygen Device Liters FIO2 SpO2% Laura Dyspnea Rating Laura Fatigue Rating 01/21/2022 1795 R/A 95 3 3 10/22/2021 1800 R/A 93 3 3 07/30/2021 1920 R/A 84 7 5 05/22/2021 1805 R/A 93 4 4 01/23/2021 1800 R/A 94 3 4 01/17/2020 1800 R/A 93 3 4 08/18/2019 1800 R/A 90 4 5 04/08/2019 1855 R/A 93 3 3 11/20/2018 1780 R/A 95 2 3 08/18/2018 1840 R/A 92 0 0 02/17/2018 1805 R/A 97 3 3 10/07/2017 1760 R/A 92 3 5 SIGNATURE: Josi Cobb RRT PATIENT NAME: Nino Rosa DATE: August 07, 2022 TIME: 12:16 PM The patient completed the six minute walk test with No stops. . The patient required Room Air to complete the test. The distance the patient walked in six minutes is within the predicted normal range. The six minute walk distance today does not demonstrate a clinically significant change (130 feet decrease), when compared to the historically highest six minute walk distance from a test dated 07/30/21. Today's distance represents a 5 feet decrease compared to the last visit on 01/21/22. The patient perceived their dyspnea during the six minute walk test to be 3-Moderate on the modified Laura scale. The patient perceived their fatigue during the six minute walk test to be 4-Somewhat severe on the modified Laura scale. I have reviewed the findings and made appropriate revisions as needed. SIGNATURE: Wesley Carlin MD PATIENT NAME: Nino Rosa DATE: August 07, 2022 TIME: 1:14 PM [facility] 08-07-2022 Note HNO ID: [id number] Author: Mady Lam RRT Service: ? Author Type: Registered Resp Therapist Type: Progress Notes Filed: 08/07/2022 11:53 AM Note Text: PULM FUNCTION SMARTBLOCK: Provider: Gela Jordan APRN.DIRECTOR HOME Assisting Tech: Josi Cobb RRT Spirometry: 1 DLCO: 1 6 MW: 1 System: [id number] - [id number] [facility] 08-07-2022 History of Present illness Narrative Images from the original note were not included. HISTORY OF PRESENT ILLNESS: Nino Rosa is a very pleasant 52 year old male who presents today for routine follow-up for IPAF. He was last seen by Gela Jordan in April 2022 and since then he reports no significant interval events or changes in symptomatology. He is not doing well and believes that he is slowly declining. He just doesn't feel good all over. He states that his stomach doesn't always feel good, he is often fatigued, and today his legs are swollen and sore. Right now his biggest complaint his how much he hurts from a joint perspective. He says this is more localized to his lower extremities, such as his ankles, feet, and knees. Because of his constant pain he is unable to get comfortable. He confirms morning stiffness that last a few minutes. He has also had joint swelling in his knees and feels like his thighs are tight. He has also been getting nose bleeds every morning and has seen an ENT about it - he was told everything looked good. Otherwise, his eyes, ears, throat, and sinuses are okay. He also admits that his shortness of breath has been getting worse, he is unable to do things around is house without feeling out of breath. He confirms wheeze but denies cough. He has been trying to lose some weight and has lost about 7 pounds in the last month. He admits that he knows losing weight would be a benefit for him. He denies near syncope, syncope, chest pain, palpitations, PND, and orthopnea. He is faithful to his CPAP. He is unsure what to do about his Rituxan infusions. The last time he saw Gela in April he mentioned how he was getting reactions to the infusions. He was getting strong flush feelings that would come and go, leg swelling, and general malaise. It has been 4 months since his last infusion. He really does not want to take steroids for his current symptoms but he will if he has to. He has never had a RHC done. He notes the last COVID booster shot made him feel awful - it freaked him out. REVIEW OF SYSTEMS: MRC Dyspnea Scale: 2. Short of breath when hurrying or walking up a slight hill Otherwise, all others per history of present illness or negative on detailed 14 point review. 08/07/22: Past medical, surgical, social, family, allergy and medication history reviewed and updated as appropriate. PAST MEDICAL HISTORY Diagnosis Date Gout HTN (hypertension) Interstitial lung disease (HCC) Lung nodules Tachycardia PAST SURGICAL HISTORY Procedure Laterality Date BRONCHOSCOPY PAST SURGICAL HISTORY OF 2014 VATS SOCIAL HISTORY: Social History Tobacco Use Smoking status: Former Packs/day: 1.00 Years: 20.00 Pack years: 20 Types: Cigarettes Quit date: 07/14/2007 Years since quittin.0 Smokeless tobacco: Never Tobacco comments: Smoked 1 ppd ~ 20 years; Denies Vaping Alcohol Use: Approximately 4.5 oz/week [which includes 3 Cans of Beer (12oz) per week] (Socially) Drug Use: No FAMILY HISTORY Problem Relation Age of Onset Ischemic Heart Disease Maternal Grandfather ALLERGIES No Known Allergies CURRENT MEDICATIONS hydrOXYchloroQUINE (PLAQUENIL) 200 mg tablet^Take 2 tablets by mouth once daily.^Disp: 180 tablet^Rfl: 0 sulfamethoxazole-trimethoprim (BACTRIM DS) 800-160 mg per tablet^Take 1 tablet by mouth every Friday,Friday,Friday.^Disp: 36 tablet^Rfl: 3 DULoxetine (CYMBALTA) 60 mg capsule^Take 1 capsule by mouth once daily.^Disp: 30 capsule^Rfl: 0 albuterol HFA (PROVENTIL HFA, VENTOLIN HFA) 90 mcg/actuation inhaler^Inhale 2 Puffs as instructed every 4 hours as needed for wheezing/shortness of breath.^Disp: 18 g^Rfl: 3 azaTHIOprine (IMURAN) 50 mg tablet^TAKE THREE (3) TABLETS BY MOUTH EVERY DAY^Disp: 270 tablet^Rfl: 3 amLODIPine (NORVASC) 10 mg tablet^Take 10 mg by mouth once daily.^Disp: ^Rfl: oxyCODONE-acetaminophen (PERCOCET) 7.5-325 mg tablet^Take 1 tablet by mouth every 12 hours as needed for pain.^Disp: ^Rfl: testosterone cypionate (DEPO-TESTOSTERONE) 200 mg/mL injection^Inject 300 mg intramuscularly every 2 weeks.^Disp: ^Rfl: 0 olmesartan (BENICAR) 40 mg tablet^Take 40 mg by mouth once daily.^Disp: ^Rfl: RITUXIMAB (RITUXAN INTRAVEN.)^Inject 1,000 mg intravenously. 2 treatments 2 weeks apart and may repeat in 6 months^Disp: ^Rfl: Benzonatate 200 mg capsule^Take by mouth.^Disp: ^Rfl: carBAMazepine (TEGRETOL) 200 mg tablet^Take by mouth.^Disp: ^Rfl: aspirin, enteric coated (ASPIRIN, ENTERIC COATED) 81 mg EC tablet^Take 81 mg by mouth once daily.^Disp: ^Rfl: PHYSICAL EXAM: General: In no apparent distress 08/07/22 1302 BP: 106/77 Pulse: 106 Resp: 18 Temp: 36.6 C (97.8 F) TempSrc: Temporal SpO2: 96% Weight: 136.1 kg (300 lb) HEENT: Unremarkable; Neck: Supple, without lymphadenopathy, thyromegaly or JVD Chest: coarse brush sounds at the base with inspiratory wheeze Cardiac: Regular rate and rhythm, without murmurs, gallops or rubs Abdomen: Normal bowel sounds, soft, nontender, without hepatosplenomegaly Extremities: No clubbing or cyanosis. Slight increased finger to palm distance. 1+ edema up to knees Musculoskeletal: No synovitis. Crepitus of knees. Skin: No rash or suspicious lesions of visualized exposed areas Neurologic: Nonfocal, strength 5/5 DATA REVIEWED (independently reviewed by myself) Laboratory Data Laboratory data reviewed in [facility] Everywhere. GLADYS GLADYS (no units) Date Value 03/23/2015 Positive GLADYS by EIA (OD Ratio) Date Value 02/17/2014 2.5 Rheumatoid Factor Rheumatoid Factor (IU/mL) Date Value 03/23/2015 <10 TSH TSH (uU/mL) Date Value 10/13/2018 3.460 HIV HIV 12 Combo (Ag/Ab) (no units) Date Value 03/23/2015 Non Reactive Hepatitis B Surface Antigen HBsAg (no units) Date Value 03/23/2015 Negative Hepatitis C Hep C Antibody IA (no units) Date Value 03/23/2015 Negative NT PRO BNP Lab Results Component Value Date PBNP <50 06/10/2021 PBNP <50 11/08/2020 PBNP 37 02/17/2014 Chemistries Lab Results Component Value Date NA 140 05/03/2022 NA 142 01/21/2022 NA 140 09/05/2021 K 4.6 05/03/2022 K 4.8 01/21/2022 K 5.0 09/05/2021 CHLOR 101 05/03/2022 CHLOR 101 01/21/2022 CHLOR 97 09/05/2021 CO2 30 05/03/2022 CO2 29 01/21/2022 CO2 30 09/05/2021 BUN 9 05/03/2022 BUN 12 01/21/2022 BUN 14 09/05/2021 CREAT 0.99 05/03/2022 CREAT 0.92 01/21/2022 CREAT 0.93 09/05/2021 GLUC 89 05/03/2022 GLUC 97 01/21/2022 GLUC 101 (H) 09/05/2021 ANION 9 05/03/2022 ANION 12 01/21/2022 ANION 13 09/05/2021 Liver Function Lab Results Component Value Date AST 36 05/03/2022 AST 39 01/21/2022 AST 28 09/05/2021 ALT 41 05/03/2022 ALT 37 01/21/2022 ALT 48 09/05/2021 ALKPHOS 68 05/03/2022 ALKPHOS 75 01/21/2022 ALKPHOS 67 09/05/2021 TBILI 0.3 05/03/2022 TBILI 0.3 01/21/2022 TBILI 0.3 09/05/2021 CBC Lab Results Component Value Date HB 17.3 (H) 08/07/2022 HB 16.1 05/03/2022 HB 16.7 01/21/2022 HCT 49.9 08/07/2022 HCT 48.2 05/03/2022 HCT 48.8 01/21/2022 WBC 3.87 08/07/2022 WBC 8.49 05/03/2022 WBC 7.76 01/21/2022 PLT 296 08/07/2022 PLT 256 05/03/2022 PLT 291 01/21/2022 Pulmonary Function Data PFT available: No Date FVC FEV1 FEV1/FVC TLC DLCO 11/20/18 3.59/73.7 2.88/74.6 80 32.64/106.5 04/08/19 3.59/73.8 2.82/73.3 78 33.51/109.3 08/18/19 3.32/68.3 2.66/69.3 80 34.80/114.4 01/17/20 3.31/70.3 2.64/70.9 80 34.61/115.0 09/18/20 3.02/64 2.55/68 84 26.38/95 01/23/21 3.34/71.2 2.69/72.7 80 32.21/107.8 05/22/21 3.27/70.0 2.59/70.3 79 31.66/106.8 07/30/2021 2.79/59 2.19/59 78 24.67/83 09/05/2021 2.99/64 2.35/64 79 32.78/110 01/21/2022 3.36/72 2.58/70 77 30.88/104 08/07/22 3.16/68 2.49/68 79/99 32.44/110 Six minute walk Six minute walk available: No Jois Cobb RRT 08/07/2022 12:16 PM Signed RESPIRATORY THERAPY SIX MINUTE WALK TEST OXIMETRY REPORT Six Minute Walk Test for This Encounter Oxygen Device Liters FIO2 SpO2% HR Activity Feet Speed (MPH) Flag R/A 100 96 Resting R/A 94 156 Six Minute Walk 1790 3.4 R/A 97 134 Recovery 1 minute post R/A 100 120 Recovery 2 minute post R/A 98 117 Recovery 3 minute post General Information Height Weight Smoking Status Pulse Oximetry Site Oximeter Pre Blood Pressure Post Blood Pressure Total Time Spent (min) 173.8 cm (5' 8.43 ) 141 kg (310 lb 13.6 oz) Ex-smoker Forehead Masimo 122/83 155/63 30 _ Distance Walked (meters) Distance Walked (feet) Male Predicted Walk Distance (feet) Male Lower Limit of Normal (feet) Male % Predicted Total Duration Of The Stops (seconds) 545.59 1790 1615.49 1113.49 110.8 -- _ Lowest SpO2 During 6 Minute Walk Pre-Laura Dyspnea Rating Pre-Laura Fatigue Rating Post Laura Dyspnea Rating Post Laura Fatigue Rating O2 Supply Carrier Walking Assistance/Device 92 % 0 0 3 4 -- None Six Minute Walk Trend (Previous Encounters) Test Date Distance Walked (feet) Oxygen Device Liters FIO2 SpO2% Laura Dyspnea Rating Laura Fatigue Rating 01/21/2022 1795 R/A 95 3 3 10/22/2021 1800 R/A 93 3 3 07/30/2021 1920 R/A 84 7 5 05/22/2021 1805 R/A 93 4 4 01/23/2021 1800 R/A 94 3 4 01/17/2020 1800 R/A 93 3 4 08/18/2019 1800 R/A 90 4 5 04/08/2019 1855 R/A 93 3 3 11/20/2018 1780 R/A 95 2 3 08/18/2018 1840 R/A 92 0 0 02/17/2018 1805 R/A 97 3 3 10/07/2017 1760 R/A 92 3 5 SIGNATURE: Josi Cobb RRT PATIENT NAME: Nino Rosa DATE: August 07, 2022 TIME: 12:16 PM The patient completed the six minute walk test with No stops. . The patient required Room Air to complete the test. The distance the patient walked in six minutes is within the predicted normal range. The six minute walk distance today does not demonstrate a clinically significant change (130 feet decrease), when compared to the historically highest six minute walk distance from a test dated 07/30/21. Today's distance represents a 5 feet decrease compared to the last visit on 01/21/22. The patient perceived their dyspnea during the six minute walk test to be 3-Moderate on the modified Laura scale. The patient perceived their fatigue during the six minute walk test to be 4-Somewhat severe on the modified Alura scale. I have reviewed the findings and made appropriate revisions as needed. SIGNATURE: Wesley Carlin MD PATIENT NAME: Nino Rosa DATE: August 07, 2022 TIME: 1:14 PM Radiology Data 12/03/[address] RESULT: There are prominent, not pathologically enlarged mediastinal lymph nodes, likely reactive. No janell axillary adenopathy is identified. Heart is stable in size. There is a trace pericardial effusion. The main pulmonary artery is dilated, measuring approximately 3.4 cm, which can be seen with pulmonary arterial hypertension. There is fluid seen esophagus, suggesting gastroesophageal reflux disease. Evaluation of the lung parenchyma demonstrates suture material within the left upper lobe, also present on the prior examination. When comparison is made to the prior exam, there has been interval improvement of vague patchy airspace opacities, suggesting improving inflammation/infectious disease. There is mild dependent atelectasis. There is no pleural effusion, endobronchial lesion, or pneumothorax. Limited scans through the upper abdomen demonstrate nonspecific collapse of the gallbladder. There is no destructive bony lesion. 04/08/19 CXR: RESULT: Lines, tubes, and devices: None. Lungs and pleura: No airspace consolidations. Stable postsurgical changes in the left lung with mild linear scarring or atelectasis in the left perihilar region. Smooth bronchial wall thickening also seen in the perihilar regions of both lungs. Smooth pleural thickening is again seen along the upper lateral chest brock extending into the apices. No pleural effusion or pneumothorax. Cardiomediastinal silhouette: Normal cardiomediastinal silhouette. Other: No acute chest wall osseous abnormality. 09/09/[address] (independently reviewed by myself); Lung parenchyma and airways: Improved groundglass opacities left upper lung. No new or progressive inflammatory finding. Chronic left upper pleural-parenchymal scarring. Patent central airways. Unremarkable peripheral airways. No new or progressive suspect nodule. Pleural space: Unchanged left upper lobe chronic scarring/tethering Lower neck, lymph nodes, and mediastinum: No significant change. The imaged thyroid gland is normal. No lymphadenopathy in the supraclavicular, axillary, mediastinal, or hilar regions. Heart, pericardium, and thoracic vessels: No significant change, no acute abnormality. No thoracic aortic aneurysm. Unchanged mild dilation main pulmonary artery trunk discussed in prior reports. The cardiac chambers are normal in size. No coronary artery atherosclerotic calcifications are noted, although the study is not optimized for coronary assessment. No pericardial effusion or thickening. Bones and soft tissues: There is a new left latissimus dorsi probable deep intramuscular and adjacent intermuscular lobulated soft tissue density structure extending approximately 15 cm superior to inferior, as much as 10 cm medial to lateral and up to 4 cm anterior to posterior thickness. Associated new enlargement of the latissimus dorsi. (For example 2:164) No acute osseous abnormality Upper abdomen: No acute findings Proposition Player (topogram) images: Frontal view. Large external artifact base of the left neck. Additional external artifact. Nonobstructive upper abdominal bowel gas pattern. Preexistent elevation right hemidiaphragm. No obvious pulmonary consolidations or effusions. 08/07/22 CXR *in process* Echocardiogram Was an echo performed?: No 02/18/14: CONCLUSIONS: - Technically difficult exam due to body habitus. - Exam indication: CHF - The left ventricle is normal in size. There is mild left ventricular hypertrophy. Left ventricular systolic function is normal. EF = 55 5% (visual est.) Baseline left ventricular diastolic function is normal. - The right ventricle is normal in size. Right ventricular systolic function is normal. - There are no significant valvular abnormalities. - No prior echocardiographic exam available for comparison. 08/12/17: CONCLUSIONS: - Technically difficult exam due to body habitus. - Exam indication: SVT - The left ventricle is small. Left ventricular systolic function is normal. EF = 60 5% (2D biplane) Definity contrast used for endocardial border detection. Grade I left ventricular diastolic dysfunction. - The right ventricle is normal in size. Right ventricular systolic function is mildly decreased. - Suboptimal subcostal images. Could not assess the IVC and hepatic veins. - Exam was compared with the prior echocardiographic exam performed on 02/18/14 at [facility]. 09/05/2021 CONCLUSIONS: - Technically difficult exam due to body habitus. - Exam indication: Pulmonary Hypertension, Shortness of breath - The left ventricle is normal in size. Left ventricular systolic function is normal. EF = 62 5% (2D biplane) Definity contrast used for endocardial border detection. Left ventricular diastolic function was not evaluated. - The right ventricle is mildly dilated. Right ventricular systolic function is normal. - Technically difficult apical images, no siginificant valvular abnormalities identified. - Exam was compared with the prior echocardiographic exam performed on 08/12/2017 ([place]). Similar findings. 08/07/22 CONCLUSIONS: - Technically difficult exam due to body habitus. - Exam indication: Shortness of Breath - The left ventricle is normal in size. Left ventricular systolic function is normal. EF = 66 5% (2D 4-ch.) Definity contrast used for endocardial border detection. - The right ventricle is mildly dilated. Right ventricular systolic function is normal. - Exam was compared with the prior echocardiographic exam performed on 09/05/2021. Similar findings Heart Catheterization Was a right heart catheterization performed?: No Pathology 03/15/14: FINAL DIAGNOSIS Left lung, lingula, thoracoscopic biopsy ([id number]; 03/10/2014) - Organizing pneumonia with areas of acute lung injury, marked desquamated interstitial pneumonia (DIP)-like pattern and reactive lymphocytic infiltrate (see comment). COMMENT The predominant pathology is patches of organizing pneumonia seen throughout the tissue. In some areas of the biopsy, there is ongoing acute lung injury with intra-alveolar fibrin and reactive type 2 pneumocytes. In addition, there are abundant alveolar macrophages diffusely involving the entire biopsy, consistent with a desquamative interstitial pneumonia (DIP-type) pattern. 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 Finally, in the background there is reactive bronchus-associated lymphoid tissue around many of the bronchovascular areas and some of the vessels. In this setting of a diffusely inflamed lung, this most likely represents a reactive inflammatory infiltrate. However, the DIP-like reaction is obscuring much of the underlying lung architecture; therefore, the possibility of an interstitial pneumonia (e.g., non-specific interstitial pneumonia) cannot be entirely excluded. There is no evidence in this specimen of interstitial fibrosis and the injury appears steroid response. No pulmonary hemorrhage and no vasculitis is seen. No birefringent material is seen. Overall, the findings may represent sequelae of an infection. A Movat highlights the presence of organizing pneumonia. 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 >50% of that time was spent counseling and coordinating care regarding interpretation of symptoms and tests and diagnostic and therapeutic options. All questions were answered to Nino Rosa's satisfaction, Nino Lamonte Rosa verbalizes understanding and agrees with treatment plan and was encouraged to contact me with questions This note was generated with voice recognition software and may contain errors, including spelling, grammar, syntax and misrecognition of what was dictated, that are not fully corrected. INTERSTITIAL LUNG DISEASE DATABASE CHECKLIST Treating diagnosis: IPAF: Idiopathic pneumonia with autoimmune features Biopsy confirmed?: Was the patient discussed at a multidisciplinary discussion?: No Current ILD medications: Azathioprine, Plaquenil, Rituximab ILD medications at end of visit: Azathioprine, Plaquenil, Rituximab Is the patient being treated with oxygen therapy?: No Does the patient have pulmonary hypertension: Uncertain Is the patient being referred for transplantation?: No By signing my name below, Kristina Ng, attest that this documentation has been prepared under the direction and in the presence of Dr. Jose Walter MD Electronically signed, Hunter Cruz August 07, 2022 1:48 PM Provider Attestation: Dr. Jose Ng personally performed the services described in this documentation. All medical record entries made by the [email or web address] were at my direction and in my presence. I have reviewed the chart and discharge instructions (if applicable) and agree that the record reflects my personal performance and is accurate and complete. Dr. Jose Walter MD MSCR August 07, 2022 CC: PCP: Jennyfer Denise, DO, DO documented in this encounter [facility] 08-07-2022 Procedure note Associated Ord er(s): SIX MINUTE WALK Images from the original note were not included. RESPIRATORY THERAPY SIX MINUTE WALK TEST OXIMETRY REPORT Six Minute Walk Test for This Encounter Oxygen Device Liters FIO2 SpO2% HR Activity Feet Speed (MPH) Flag R/A 100 96 Resting R/A 94 156 Six Minute Walk 1790 3.4 R/A 97 134 Recovery 1 minute post R/A 100 120 Recovery 2 minute post R/A 98 117 Recovery 3 minute post General Information Height Weight Smoking Status Pulse Oximetry Site Oximeter Pre Blood Pressure Post Blood Pressure Total Time Spent (min) 173.8 cm (5' 8.43 ) 141 kg (310 lb 13.6 oz) Ex-smoker Forehead Masimo 122/83 155/63 30 _ Distance Walked (meters) Distance Walked (feet) Male Predicted Walk Distance (feet) Male Lower Limit of Normal (feet) Male % Predicted Total Duration Of The Stops (seconds) 545.59 1790 1615.49 1113.49 110.8 -- _ Lowest SpO2 During 6 Minute Walk Pre-Laura Dyspnea Rating Pre-Laura Fatigue Rating Post Laura Dyspnea Rating Post Laura Fatigue Rating O2 Supply Carrier Walking Assistance/Device 92 % 0 0 3 4 -- None Six Minute Walk Trend (Previous Encounters) Test Date Distance Walked (feet) Oxygen Device Liters FIO2 SpO2% Laura Dyspnea Rating Laura Fatigue Rating 01/21/2022 1795 R/A 95 3 3 10/22/2021 1800 R/A 93 3 3 07/30/2021 1920 R/A 84 7 5 05/22/2021 1805 R/A 93 4 4 01/23/2021 1800 R/A 94 3 4 01/17/2020 1800 R/A 93 3 4 08/18/2019 1800 R/A 90 4 5 04/08/2019 1855 R/A 93 3 3 11/20/2018 1780 R/A 95 2 3 08/18/2018 1840 R/A 92 0 0 02/17/2018 1805 R/A 97 3 3 10/07/2017 1760 R/A 92 3 5 SIGNATURE: Josi Cobb RRT PATIENT NAME: Nino Rosa DATE: August 07, 2022 TIME: 12:16 PM The patient completed the six minute walk test with No stops. . The patient required Room Air to complete the test. The distance the patient walked in six minutes is within the predicted normal range. The six minute walk distance today does not demonstrate a clinically significant change (130 feet decrease), when compared to the historically highest six minute walk distance from a test dated 07/30/21. Today's distance represents a 5 feet decrease compared to the last visit on 01/21/22. The patient perceived their dyspnea during the six minute walk test to be 3-Moderate on the modified Laura scale. The patient perceived their fatigue during the six minute walk test to be 4-Somewhat severe on the modified Laura scale. I have reviewed the findings and made appropriate revisions as needed. SIGNATURE: Wesley Carlin MD PATIENT NAME: Nino Rosa DATE: August 07, 2022 TIME: 1:14 PM documented in this encounter [facility] 08-07-2022 History of Present illness Narrative PULM FUNCTION SMARTBLOCK: Provider: Gela Jordan APRN.DIRECTOR HOME Assisting Tech: Josi Cobb RRT Spirometry: 1 DLCO: 1 6 MW: 1 System: [id number] - [id number] documented in this encounter [facility] 08-07-2022 Note HNO ID: [id number] Author: RT Roxy(R) Service: ? Author Type: Technologist Type: Progress Notes Filed: 08/07/2022 10:04 AM Note Text: Radiology Service Progress Note PATIENT NAME: Nino Rosa DATE OF SERVICE: August 07, 2022 TIME: 10:02 AM PATIENT IDENTITY VERIFICATION COMPLETED USING TWO (2) IDENTIFIERS: Name and Date of confirmed by patient verbally. FALL SCREENING: Has the patient had 2 falls in the last year or 1 fall with injury or currently using an Ambulatory Assistive Device (Walker, Cane, Wheelchair, Crutches, etc.)? No PATIENT GENDER DATA: Male PATIENT RELEVANT IMPLANT DATA REVIEWED: Not Applicable RADIOLOGY DEPARTMENT: General X-ray: Exam(s) Completed: Chest X-Ray PERIPHERAL IV DATA: Not applicable SIGNED BY: RT Roxy(R) August 07, 2022 10:02 AM [facility] 08-07-2022 History of Present illness Narrative Radiology Service Progress Note PATIENT NAME: Nino Rosa DATE OF SERVICE: August 07, 2022 TIME: 10:02 AM PATIENT IDENTITY VERIFICATION COMPLETED USING TWO (2) IDENTIFIERS: Name and Date of confirmed by patient verbally. FALL SCREENING: Has the patient had 2 falls in the last year or 1 fall with injury or currently using an Ambulatory Assistive Device (Walker, Cane, Wheelchair, Crutches, etc.)? No PATIENT GENDER DATA: Male PATIENT RELEVANT IMPLANT DATA REVIEWED: Not Applicable RADIOLOGY DEPARTMENT: General X-ray: Exam(s) Completed: Chest X-Ray PERIPHERAL IV DATA: Not applicable SIGNED BY: RT Roxy(R) August 07, 2022 10:02 AM documented in this encounter [facility] 05-07-2022 History of Present illness Narrative Images from the original note were not included. HISTORY OF PRESENT ILLNESS: Nino Rosa is a very pleasant 52 year old male who presents today for routine follow-up for IPAF. Mr. Rosa is followed in the [facility] clinic for IPAF, on rituximab, azathioprine 150mg daily, and plaquenil. He had his last rituximab infusions on 04/10 and 04/24. He had reaction following both infusions. he noted flushing of his face the day after the 04/10 infusions which lasted a few days. This subsided, and then the day following the second infusion on 04/24 he noted again face flushing and the skin on his arms burning. He also had some congestion and wheezing. He had swelling of his legs from ankles to thighs. The flushing and swelling has abated now, but he continues to note some shortness of breath above his baseline. THis is perhaps getting a bit better over time, certainly not worsening. He currently denies any near syncope, syncope, chest pain, palpitations, PND, orthopnea or lower extremity edema. He denies any CTD symptoms. no arthralgias or skin rashes. No hemoptysis or wheezing. No history of blood clots. No recent travel. REVIEW OF SYSTEMS: MRC Dyspnea Scale: 2. Short of breath when hurrying or walking up a slight hill Otherwise, all others per history of present illness or negative on detailed 14 point review. PAST MEDICAL HISTORY Diagnosis Date Gout HTN (hypertension) Interstitial lung disease (HCC) Lung nodules Tachycardia PAST SURGICAL HISTORY Procedure Laterality Date BRONCHOSCOPY PAST SURGICAL HISTORY OF 2013 VATS SOCIAL HISTORY: Social History Tobacco Use Smoking status: Former Packs/day: 1.00 Years: 20.00 Pack years: 20 Types: Cigarettes Quit date: 07/14/2007 Years since quittin.8 Smokeless tobacco: Never Tobacco comments: Smoked 1 ppd ~ 20 years; Denies Vaping Alcohol Use: Approximately 4.5 oz/week [which includes 3 Cans of Beer (12oz) per week] (Socially) Drug Use: No FAMILY HISTORY Problem Relation Age of Onset Ischemic Heart Disease Maternal Grandfather ALLERGIES No Known Allergies CURRENT MEDICATIONS hydrOXYchloroQUINE (PLAQUENIL) 200 mg tablet^Take 2 tablets by mouth once daily.^Disp: 180 tablet^Rfl: 0 sulfamethoxazole-trimethoprim (BACTRIM DS) 800-160 mg per tablet^Take 1 tablet by mouth every Friday,Friday,Friday.^Disp: 36 tablet^Rfl: 3 DULoxetine (CYMBALTA) 60 mg capsule^Take 1 capsule by mouth once daily.^Disp: 30 capsule^Rfl: 0 albuterol HFA (PROVENTIL HFA, VENTOLIN HFA) 90 mcg/actuation inhaler^Inhale 2 Puffs as instructed every 4 hours as needed for wheezing/shortness of breath.^Disp: 18 g^Rfl: 3 azaTHIOprine (IMURAN) 50 mg tablet^TAKE THREE (3) TABLETS BY MOUTH EVERY DAY^Disp: 270 tablet^Rfl: 3 amLODIPine (NORVASC) 10 mg tablet^Take 10 mg by mouth once daily.^Disp: ^Rfl: oxyCODONE-acetaminophen (PERCOCET) 7.5-325 mg tablet^Take 1 tablet by mouth every 12 hours as needed for pain.^Disp: ^Rfl: testosterone cypionate (DEPO-TESTOSTERONE) 200 mg/mL injection^INJECT 200MG INTRAMUSCULARLY ONCE EVERY 4 WEEKS^Disp: ^Rfl: 0 olmesartan (BENICAR) 40 mg tablet^Take 40 mg by mouth once daily.^Disp: ^Rfl: RITUXIMAB (RITUXAN INTRAVEN.)^Inject 1,000 mg intravenously. 2 treatments 2 weeks apart and may repeat in 6 months^Disp: ^Rfl: Benzonatate 200 mg capsule^Take by mouth.^Disp: ^Rfl: carBAMazepine (TEGRETOL) 200 mg tablet^Take by mouth.^Disp: ^Rfl: aspirin, enteric coated (ASPIRIN, ENTERIC COATED) 81 mg EC tablet^Take 81 mg by mouth once daily.^Disp: ^Rfl: PHYSICAL EXAM: General: In no apparent distress 05/07/22 1243 BP: 133/81 Pulse: 96 Resp: 18 Temp: 36.1 C (96.9 F) SpO2: 97% Weight: (!) 144.2 kg (318 lb) Height: 172.7 cm (5' 8 ) HEENT: Unremarkable; Neck: Supple, without lymphadenopathy, thyromegaly or JVD Chest: CTAB Cardiac: Regular rate and rhythm, without murmurs, gallops or rubs Abdomen: Normal bowel sounds, soft, nontender, without hepatosplenomegaly Extremities: No clubbing, cyanosis or edema Musculoskeletal: No synovitis Skin: No rash or suspicious lesions of visualized exposed areas Neurologic: Nonfocal, strength 5/5 DATA REVIEWED (independently reviewed by myself) Laboratory Data Laboratory data reviewed in [facility] Everywhere. GLADYS GLADYS (no units) Date Value 03/23/2015 Positive GLADYS by EIA (OD Ratio) Date Value 02/17/2014 2.5 Rheumatoid Factor Rheumatoid Factor (IU/mL) Date Value 03/23/2015 <10 TSH TSH (uU/mL) Date Value 10/13/2018 3.460 HIV HIV 12 Combo (Ag/Ab) (no units) Date Value 03/23/2015 Non Reactive Hepatitis B Surface Antigen HBsAg (no units) Date Value 03/23/2015 Negative Hepatitis C Hep C Antibody IA (no units) Date Value 03/23/2015 Negative NT PRO BNP Lab Results Component Value Date PBNP <50 06/10/2021 PBNP <50 11/08/2020 PBNP 37 02/17/2014 Chemistries Lab Results Component Value Date NA 140 05/03/2022 NA 142 01/21/2022 NA 140 09/05/2021 K 4.6 05/03/2022 K 4.8 01/21/2022 K 5.0 09/05/2021 CHLOR 101 05/03/2022 CHLOR 101 01/21/2022 CHLOR 97 09/05/2021 CO2 30 05/03/2022 CO2 29 01/21/2022 CO2 30 09/05/2021 BUN 9 05/03/2022 BUN 12 01/21/2022 BUN 14 09/05/2021 CREAT 0.99 05/03/2022 CREAT 0.92 01/21/2022 CREAT 0.93 09/05/2021 GLUC 89 05/03/2022 GLUC 97 01/21/2022 GLUC 101 (H) 09/05/2021 ANION 9 05/03/2022 ANION 12 01/21/2022 ANION 13 09/05/2021 Liver Function Lab Results Component Value Date AST 36 05/03/2022 AST 39 01/21/2022 AST 28 09/05/2021 ALT 41 05/03/2022 ALT 37 01/21/2022 ALT 48 09/05/2021 ALKPHOS 68 05/03/2022 ALKPHOS 75 01/21/2022 ALKPHOS 67 09/05/2021 TBILI 0.3 05/03/2022 TBILI 0.3 01/21/2022 TBILI 0.3 09/05/2021 CBC Lab Results Component Value Date HB 16.1 05/03/2022 HB 16.7 01/21/2022 HB 17.1 (H) 09/05/2021 HCT 48.2 05/03/2022 HCT 48.8 01/21/2022 HCT 52.3 (H) 09/05/2021 WBC 8.49 05/03/2022 WBC 7.76 01/21/2022 WBC 11.57 (H) 09/05/2021 PLT 256 05/03/2022 PLT 291 01/21/2022 PLT 295 09/05/2021 Pulmonary Function Data PFT available: No Date FVC FEV1 FEV1/FVC TLC DLCO 11/20/18 3.59/73.7 2.88/74.6 80 32.64/106.5 04/08/19 3.59/73.8 2.82/73.3 78 33.51/109.3 08/18/19 3.32/68.3 2.66/69.3 80 34.80/114.4 01/17/20 3.31/70.3 2.64/70.9 80 34.61/115.0 09/18/20 3.02/64 2.55/68 84 26.38/95 01/23/21 3.34/71.2 2.69/72.7 80 32.21/107.8 05/22/21 3.27/70.0 2.59/70.3 79 31.66/106.8 07/30/2021 2.79/59 2.19/59 78 24.67/83 09/05/2021 2.99/64 2.35/64 79 32.78/110 01/21/2022 3.36/72 2.58/70 77 30.88/104 Six minute walk Six minute walk available: Kemi Nuñez, [employer] 01/21/2022 9:25 AM Signed RESPIRATORY THERAPY SIX MINUTE WALK TEST OXIMETRY REPORT Six Minute Walk Test for This Encounter Oxygen Device Liters FIO2 SpO2% HR Activity Feet Speed (MPH) Flag R/A 100 98 Resting R/A 95 152 Six Minute Walk 1795 3.4 R/A 100 124 Recovery 1 minute post R/A 100 109 Recovery 2 minute post R/A 100 108 Recovery 3 minute post General Information Height Weight Smoking Status Pulse Oximetry Site Oximeter Pre Blood Pressure Post Blood Pressure Total Time Spent (min) 174 cm (5' 8.5 ) 139.1 kg (306 lb 10.6 oz) Ex-smoker Forehead Masimo 121/77 201/99 30 _ Distance Walked (meters) Distance Walked (feet) Male Predicted Walk Distance (feet) Male Lower Limit of Normal (feet) Male % Predicted Total Duration Of The Stops (seconds) 547.12 1795 1647.97 1145.97 108.9 -- _ Lowest SpO2 During 6 Minute Walk Pre-Laura Dyspnea Rating Pre-Laura Fatigue Rating Post Laura Dyspnea Rating Post Laura Fatigue Rating O2 Supply Carrier Walking Assistance/Device 95 % 0 0 3 3 -- None Six Minute Walk Trend (Previous Encounters) Test Date Distance Walked (feet) Oxygen Device Liters FIO2 SpO2% Laura Dyspnea Rating Laura Fatigue Rating 10/22/2021 1800 R/A 93 3 3 07/30/2021 1920 R/A 84 7 5 05/22/2021 1805 R/A 93 4 4 01/23/2021 1800 R/A 94 3 4 01/17/2020 1800 R/A 93 3 4 08/18/2019 1800 R/A 90 4 5 04/08/2019 1855 R/A 93 3 3 11/20/2018 1780 R/A 95 2 3 08/18/2018 1840 R/A 92 0 0 02/17/2018 1805 R/A 97 3 3 10/07/2017 1760 R/A 92 3 5 SIGNATURE: Aysha Nuñze RRT PATIENT NAME: Nino Rosa DATE: January 21, 2022 TIME: 9:24 AM _ Comments: Post BP retaken 5 mins Post 160/83 The patient completed the six minute walk test with No stops. . The patient required Room Air to complete the test. The distance the patient walked in six minutes is within the predicted normal range. The six minute walk distance today does not demonstrate a clinically significant change (125 feet decrease), when compared to the historically highest six minute walk distance from a test dated 07/30/21. Today's distance represents a 5 feet decrease compared to the last visit on 10/22/21. The patient perceived their dyspnea during the six minute walk test to be 3-Moderate on the modified Laura scale. The patient perceived their fatigue during the six minute walk test to be 3-Moderate on the modified Laura scale. I have reviewed the findings and made appropriate revisions as needed. SIGNATURE: Wesley Carlin MD PATIENT NAME: Nino Rosa DATE: January 21, 2022 TIME: 10:47 AM Radiology Data Radiology Data 12/03/[address] RESULT: There are prominent, not pathologically enlarged mediastinal lymph nodes, likely reactive. No janell axillary adenopathy is identified. Heart is stable in size. There is a trace pericardial effusion. The main pulmonary artery is dilated, measuring approximately 3.4 cm, which can be seen with pulmonary arterial hypertension. There is fluid seen esophagus, suggesting gastroesophageal reflux disease. Evaluation of the lung parenchyma demonstrates suture material within the left upper lobe, also present on the prior examination. When comparison is made to the prior exam, there has been interval improvement of vague patchy airspace opacities, suggesting improving inflammation/infectious disease. There is mild dependent atelectasis. There is no pleural effusion, endobronchial lesion, or pneumothorax. Limited scans through the upper abdomen demonstrate nonspecific collapse of the gallbladder. There is no destructive bony lesion. 04/08/19 CXR: RESULT: Lines, tubes, and devices: None. Lungs and pleura: No airspace consolidations. Stable postsurgical changes in the left lung with mild linear scarring or atelectasis in the left perihilar region. Smooth bronchial wall thickening also seen in the perihilar regions of both lungs. Smooth pleural thickening is again seen along the upper lateral chest brock extending into the apices. No pleural effusion or pneumothorax. Cardiomediastinal silhouette: Normal cardiomediastinal silhouette. Other: No acute chest wall osseous abnormality. 09/09/[address] (independently reviewed by myself); Lung parenchyma and airways: Improved groundglass opacities left upper lung. No new or progressive inflammatory finding. Chronic left upper pleural-parenchymal scarring. Patent central airways. Unremarkable peripheral airways. No new or progressive suspect nodule. Pleural space: Unchanged left upper lobe chronic scarring/tethering Lower neck, lymph nodes, and mediastinum: No significant change. The imaged thyroid gland is normal. No lymphadenopathy in the supraclavicular, axillary, mediastinal, or hilar regions. Heart, pericardium, and thoracic vessels: No significant change, no acute abnormality. No thoracic aortic aneurysm. Unchanged mild dilation main pulmonary artery trunk discussed in prior reports. The cardiac chambers are normal in size. No coronary artery atherosclerotic calcifications are noted, although the study is not optimized for coronary assessment. No pericardial effusion or thickening. Bones and soft tissues: There is a new left latissimus dorsi probable deep intramuscular and adjacent intermuscular lobulated soft tissue density structure extending approximately 15 cm superior to inferior, as much as 10 cm medial to lateral and up to 4 cm anterior to posterior thickness. Associated new enlargement of the latissimus dorsi. (For example 2:164) No acute osseous abnormality Upper abdomen: No acute findings Proposition Player (topogram) images: Frontal view. Large external artifact base of the left neck. Additional external artifact. Nonobstructive upper abdominal bowel gas pattern. Preexistent elevation right hemidiaphragm. No obvious pulmonary consolidations or effusions. Echocardiogram Was an echo performed?: No 02/18/14: CONCLUSIONS: - Technically difficult exam due to body habitus. - Exam indication: CHF - The left ventricle is normal in size. There is mild left ventricular hypertrophy. Left ventricular systolic function is normal. EF = 55 5% (visual est.) Baseline left ventricular diastolic function is normal. - The right ventricle is normal in size. Right ventricular systolic function is normal. - There are no significant valvular abnormalities. - No prior echocardiographic exam available for comparison. 08/12/17: CONCLUSIONS: - Technically difficult exam due to body habitus. - Exam indication: SVT - The left ventricle is small. Left ventricular systolic function is normal. EF = 60 5% (2D biplane) Definity contrast used for endocardial border detection. Grade I left ventricular diastolic dysfunction. - The right ventricle is normal in size. Right ventricular systolic function is mildly decreased. - Suboptimal subcostal images. Could not assess the IVC and hepatic veins. - Exam was compared with the prior echocardiographic exam performed on 02/18/14 at [facility]. 09/05/2021 CONCLUSIONS: - Technically difficult exam due to body habitus. - Exam indication: Pulmonary Hypertension, Shortness of breath - The left ventricle is normal in size. Left ventricular systolic function is normal. EF = 62 5% (2D biplane) Definity contrast used for endocardial border detection. Left ventricular diastolic function was not evaluated. - The right ventricle is mildly dilated. Right ventricular systolic function is normal. - Technically difficult apical images, no siginificant valvular abnormalities identified. - Exam was compared with the prior echocardiographic exam performed on 08/12/2017 ([place]). Similar findings. Heart Catheterization Was a right heart catheterization performed?: No Pathology 03/15/14: FINAL DIAGNOSIS Left lung, lingula, thoracoscopic biopsy ([id number]; 03/10/2014) - Organizing pneumonia with areas of acute lung injury, marked desquamated interstitial pneumonia (DIP)-like pattern and reactive lymphocytic infiltrate (see comment). COMMENT The predominant pathology is patches of organizing pneumonia seen throughout the tissue. In some areas of the biopsy, there is ongoing acute lung injury with intra-alveolar fibrin and reactive type 2 pneumocytes. In addition, there are abundant alveolar macrophages diffusely involving the entire biopsy, consistent with a desquamative interstitial pneumonia (DIP-type) pattern. 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 Finally, in the background there is reactive bronchus-associated lymphoid tissue around many of the bronchovascular areas and some of the vessels. In this setting of a diffusely inflamed lung, this most likely represents a reactive inflammatory infiltrate. However, the DIP-like reaction is obscuring much of the underlying lung architecture; therefore, the possibility of an interstitial pneumonia (e.g., non-specific interstitial pneumonia) cannot be entirely excluded. There is no evidence in this specimen of interstitial fibrosis and the injury appears steroid response. No pulmonary hemorrhage and no vasculitis is seen. No birefringent material is seen. Overall, the findings may represent sequelae of an infection. A Movat highlights the presence of organizing pneumonia. 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 He had reaction following both his last two rituximab infusions on 04/10 and 04/24, with worse and longer reaction following the second one. He has had no reactions like this previously with rituximab. He noted facial flushing, burning sensation in arms, LE edema, wheeze, congestion and increase in dyspnea. These were very much temporally related to the infusions. He has recovered now, apart from some ongoing shortness of breath, which is getting better with time. On exam today, lungs clear, heart regular rate, VS within normal, labs within normal, no LE edema, no synovitis. No testing today, but will plan to add some on to his appt with Dr. walter in July. No other changes today. Continue azathioprine and plaquenil. Will discuss with Dr. walter whether alternative to rituximab needed at his future appt. PLAN add on echo, Chest xray and PFTs to appt with Dr. walter in July. No other changes All questions were answered to Nion Rosa's satisfaction, Nino Rosa verbalizes understanding and agrees with treatment plan and was encouraged to contact me with questions Gela Jordan APRN.DIRECTOR HOME I spent 30 minutes face to face with the patient. >50% of that time was spent counseling and coordinating care regarding interpretation of symptoms and tests and diagnostic and therapeutic options. All questions were answered to Nino Rosa's satisfaction, Nino Rosa verbalizes understanding and agrees with treatment plan and was encouraged to contact me with questions This note was generated with voice recognition software and may contain errors, including spelling, grammar, syntax and misrecognition of what was dictated, that are not fully corrected. INTERSTITIAL LUNG DISEASE DATABASE CHECKLIST Treating diagnosis: IPAF: Idiopathic pneumonia with autoimmune features Biopsy confirmed?: Was the patient discussed at a multidisciplinary discussion?: No Current ILD medications: Azathioprine, Plaquenil, Rituximab ILD medications at end of visit: Azathioprine, Plaquenil, Rituximab Is the patient being treated with oxygen therapy?: No Does the patient have pulmonary hypertension: Uncertain Is the patient being referred for transplantation?: No CC: PCP: Jennyfer Denise DO, DO Medical Decision Making: Level: 4 - Moderate documented in this encounter [facility] 02-20-2022 History of Present illness Narrative This note was created using [id number]. Subjective Nino Rosa is a 51 year old male. HPI by patient: Nino is a 51 yo male presenting to the office with the complaint of ear pain Started approximately a few days ago Associated symptoms include decreased hearing and ear pressure. Has tried OTC drops to soften wax Denies any other concerns Covid Immunization Dates Overdue - COVID-19 VACCINE (4 - Booster for Pfizer series) Overdue since 12/10/2021 09/17/2021 Imm Admin: COVID-19 vaccine, age 12+ yr (PFIZER-BIONTECH - TAN TOP) 09/19/2020 Imm Admin: COVID-19 vaccine, age 12+ yr (PFIZER-BIONTECH - PURPLE TOP) 08/29/2020 Imm Admin: COVID-19 vaccine, age 12+ yr (PFIZER-BIONTECH - PURPLE TOP) No antibiotic use in the last 60 days. ALLERGIES No Known Allergies Family History Reviewed Including Cardiac Diseases, Psychiatric Diseases, & Substance Abuse Problem: Ischemic Heart Disease Relation: Maternal Grandfather Age of Onset: (Not Specified) Social History Tobacco Use Smoking status: Former Packs/day: 1.00 Years: 20.00 Pack years: 20 Types: Cigarettes Quit date: 07/14/2007 Years since quittin.6 Smokeless tobacco: Never Tobacco comments: Smoked 1 ppd ~ 20 years; Denies Vaping Vaping Use Vaping Use: Never used Alcohol use: Yes Alcohol/week: 7.5 standard drinks Types: 3 Cans of Beer (12oz) per week Comment: Socially Drug use: No Review of Systems Constitutional: Negative for chills and fever. HENT: Positive for ear pain and hearing loss (decreased hearing in R ear). Negative for congestion, rhinorrhea and sore throat. Respiratory: Negative for cough. Cardiovascular: Negative for chest pain. Allergic/Immunologic: Negative for immunocompromised state. Neurological: Negative for headaches. Hematological: Negative for adenopathy. Objective There were no vitals taken for this visit. Physical Exam Vitals and nursing note reviewed. Constitutional: Appearance: He is well-developed. HENT: Right Ear: Ear canal normal. There is impacted cerumen. Left Ear: Ear canal normal. There is impacted cerumen. Ears: Comments: TM WNL in R ear after irrigation. Unable to irrigate L ear, TM not visualized Nose: Nose normal. Mouth/Throat: Pharynx: Uvula midline. Cardiovascular: Rate and Rhythm: Normal rate and regular rhythm. Heart sounds: Normal heart sounds. Pulmonary: Effort: Pulmonary effort is normal. Breath sounds: Normal breath sounds. Lymphadenopathy: Cervical: No cervical adenopathy. Skin: General: Skin is warm and dry. Neurological: Mental Status: He is alert and oriented to person, place, and time. Assessment and Plan ASSESSMENT/PLAN: 1. Bilateral impacted cerumen - ICD9: 380.4, ICD10: H61.23 - Irrigated in office by PEEWEE. Only able to clear right ear, L ear remains impacted. Pt advised to continue OTC drops and follow up as needed. Beth Rosas APRN.CNP Medical Decision Making: Problems: Moderate: New problem with uncertain prognosis Data: Unique test result(s) reviewed: 1 Risk: Moderate: Moderate risk from testing/treatment Medical Decision Making Level: 4 - Moderate Remove COVID19 association documented in this encounter [facility] 01-21-2022 History of Present illness Narrative Images from the original note were not included. HISTORY OF PRESENT ILLNESS: Nino Rosa is a very pleasant 51 year old male who presents today for routine follow-up for IPAF. He was last seen by me in October and since then he's had no significant interval events. He is now getting rituximab every 4 months and he reports that this is really helpful with less joint pain and overall improved sense of wellbeing. He does continue to have some myalgias and arthralgias with morning stiffness and easy gelling. From a cardiopulmonary standpoint, he reports improved shortness of breath/dyspnea on exertion. He has no significant cough or wheeze. He denies near syncope, syncope, chest pain, palpitations, PND, orthopnea or lower extremity edema. He also remains maintained on plaquenil and azathioprine (150mg daily). REVIEW OF SYSTEMS is per history of present illness and is otherwise negative on detailed 14 point review. 01/21/22: Past medical, surgical, social, family, allergy and medication history reviewed and updated as appropriate. PAST MEDICAL HISTORY Diagnosis Date Gout HTN (hypertension) Interstitial lung disease (HCC) Lung nodules Tachycardia PAST SURGICAL HISTORY Procedure Laterality Date BRONCHOSCOPY PAST SURGICAL HISTORY OF 2013 VATS SOCIAL HISTORY: Tobacco Use Smoking status: Former Smoker Packs/day: 1.00 Years: 20.00 Pack years: 20 Types: Cigarettes Quit date: 07/14/2007 Years since quittin.2 Smokeless tobacco: Never Used Tobacco comment: Smoked 1 ppd ~ 20 years; Denies Vaping Alcohol Use: Approximately 4.5 oz/week [which includes 3 Cans of Beer (12oz) per week] (Socially) Drug Use: No FAMILY HISTORY Problem Relation Age of Onset Ischemic Heart Disease Maternal Grandfather ALLERGIES No Known Allergies CURRENT MEDICATIONS Current Outpatient Medications Medication Sig sulfamethoxazole-trimethoprim (BACTRIM DS) 800-160 mg per tablet Take 1 tablet by mouth every Friday,Friday,Friday. DULoxetine (CYMBALTA) 60 mg capsule Take 1 capsule by mouth once daily. albuterol HFA (PROVENTIL HFA, VENTOLIN HFA) 90 mcg/actuation inhaler Inhale 2 Puffs as instructed every 4 hours as needed for wheezing/shortness of breath. azaTHIOprine (IMURAN) 50 mg tablet TAKE THREE (3) TABLETS BY MOUTH EVERY DAY amLODIPine (NORVASC) 10 mg tablet Take 10 mg by mouth once daily. Benzonatate 200 mg capsule Take by mouth. (Patient not taking: Reported on 12/12/2021 ) carBAMazepine (TEGRETOL) 200 mg tablet Take by mouth. (Patient not taking: Reported on 12/12/2021 ) hydrOXYchloroQUINE (PLAQUENIL) 200 mg tablet Take 2 tablets by mouth once daily. aspirin, enteric coated (ASPIRIN, ENTERIC COATED) 81 mg EC tablet Take 81 mg by mouth once daily. oxyCODONE-acetaminophen (PERCOCET) 7.5-325 mg tablet Take 1 tablet by mouth every 12 hours as needed for pain. testosterone cypionate (DEPO-TESTOSTERONE) 200 mg/mL injection INJECT 200MG INTRAMUSCULARLY ONCE EVERY 4 WEEKS olmesartan (BENICAR) 40 mg tablet Take 40 mg by mouth once daily. RITUXIMAB (RITUXAN INTRAVEN.) Inject 1,000 mg intravenously. 2 treatments 2 weeks apart and may repeat in 6 months PHYSICAL EXAM: General: In no apparent distress 01/21/22 0928 BP: 123/88 Pulse: 104 Resp: 18 SpO2: 96% Weight: (!) 139.1 kg (306 lb 10.6 oz) Height: 172.7 cm (5' 8 ) HEENT: Masked. Neck: Supple, without lymphadenopathy, thyromegaly or JVD. Chest: Bilateral prolonged expiratory phase with end expiratory wheeze Cardiac: Regular rate and rhythm, without murmurs, gallops or rubs. Abdomen: Normal bowel sounds, soft, nontender, without hepatosplenomegaly. Extremities: No clubbing or cyanosis. Tracepitting edema. Musculoskeletal: No synovitis Skin: No rash or suspicious lesions of visualized exposed areas. Neurologic: Nonfocal, strength 5/5. DATA REVIEWED (independently reviewed by myself) Laboratory Data Laboratory data reviewed in [facility] Everywhere. GLADYS GLADYS (no units) Date Value 03/23/2015 Positive GLADYS by EIA (OD Ratio) Date Value 02/17/2014 2.5 Rheumatoid Factor Rheumatoid Factor (IU/mL) Date Value 03/23/2015 <10 TSH TSH (uU/mL) Date Value 10/13/2018 3.460 HIV HIV 12 Combo (Ag/Ab) (no units) Date Value 03/23/2015 Non Reactive Hepatitis B Surface Antigen HBsAg (no units) Date Value 03/23/2015 Negative Hepatitis C Hep C Antibody IA (no units) Date Value 03/23/2015 Negative NT PRO BNP Lab Results Component Value Date PBNP <50 06/10/2021 PBNP <50 11/08/2020 PBNP 37 02/17/2014 Chemistries Lab Results Component Value Date NA 140 09/05/2021 NA 139 06/12/2021 NA 139 06/11/2021 K 5.0 09/05/2021 K 4.6 06/12/2021 K 4.5 06/11/2021 CHLOR 97 09/05/2021 CHLOR 102 06/12/2021 CHLOR 102 06/11/2021 CO2 30 09/05/2021 CO2 28 06/12/2021 CO2 24 06/11/2021 BUN 14 09/05/2021 BUN 14 06/12/2021 BUN 12 06/11/2021 CREAT 0.93 09/05/2021 CREAT 0.71 (L) 06/12/2021 CREAT 0.76 06/11/2021 GLUC 101 (H) 09/05/2021 GLUC 104 (H) 06/12/2021 GLUC 102 (H) 06/11/2021 ANION 13 09/05/2021 ANION 9 06/12/2021 ANION 13 06/11/2021 Liver Function Lab Results Component Value Date AST 28 09/05/2021 AST 72 (H) 06/12/2021 AST 34 06/11/2021 ALT 48 09/05/2021 ALT 72 (H) 06/12/2021 ALT 26 06/11/2021 ALKPHOS 67 09/05/2021 ALKPHOS 64 06/12/2021 ALKPHOS 62 06/11/2021 TBILI 0.3 09/05/2021 TBILI 0.4 06/12/2021 TBILI 0.4 06/11/2021 CBC Lab Results Component Value Date HB 17.1 (H) 09/05/2021 HB 16.0 06/12/2021 HB 15.4 06/11/2021 HCT 52.3 (H) 09/05/2021 HCT 46.5 06/12/2021 HCT 45.8 06/11/2021 WBC 11.57 (H) 09/05/2021 WBC 5.91 06/12/2021 WBC 3.06 (L) 06/11/2021 PLT 295 09/05/2021 PLT 383 06/12/2021 PLT 329 06/11/2021 Pulmonary Function Data PFT available: Yes. PFT results moderate restriction with normal diffusion. Diffusion with 24% improvement. Date FVC FEV1 FEV1/FVC TLC DLCO 11/20/18 3.59/73.7 2.88/74.6 80 32.64/106.5 04/08/19 3.59/73.8 2.82/73.3 78 33.51/109.3 08/18/19 3.32/68.3 2.66/69.3 80 34.80/114.4 01/17/20 3.31/70.3 2.64/70.9 80 34.61/115.0 09/18/20 3.02/64 2.55/68 84 26.38/95 01/23/21 3.34/71.2 2.69/72.7 80 32.21/107.8 05/22/21 3.27/70.0 2.59/70.3 79 31.66/106.8 07/30/2021 2.79/59 2.19/59 78 24.67/83 09/05/2021 2.99/64 2.35/64 79 32.78/110 10/22/21 3.05/65 2.42/65 79 27.87/94 01/21/22 3.36/72 2.58/70 77 30.88/104 Six minute walk Six minute walk available:yes Six Minute Walk Test for This Encounter Oxygen Device Liters FIO2 SpO2% HR Activity Feet Speed (MPH) Flag R/A 100 98 Resting R/A 95 152 Six Minute Walk 1795 3.4 R/A 100 124 Recovery 1 minute post R/A 100 109 Recovery 2 minute post R/A 100 108 Recovery 3 minute post General Information Height Weight Smoking Status Pulse Oximetry Site Oximeter Pre Blood Pressure Post Blood Pressure Total Time Spent (min) 174 cm (5' 8.5 ) 139.1 kg (306 lb 10.6 oz) Ex-smoker Forehead Masimo 121/77 201/99 30 _ Distance Walked (meters) Distance Walked (feet) Male Predicted Walk Distance (feet) Male Lower Limit of Normal (feet) Male % Predicted Total Duration Of The Stops (seconds) 547.12 1795 1647.97 1145.97 108.9 -- _ Lowest SpO2 During 6 Minute Walk Pre-Laura Dyspnea Rating Pre-Laura Fatigue Rating Post Laura Dyspnea Rating Post Laura Fatigue Rating O2 Supply Carrier Walking Assistance/Device 95 % 0 0 3 3 -- None Six Minute Walk Trend (Previous Encounters) Test Date Distance Walked (feet) Oxygen Device Liters FIO2 SpO2% Laura Dyspnea Rating Laura Fatigue Rating 10/22/2021 1800 R/A 93 3 3 07/30/2021 1920 R/A 84 7 5 05/22/2021 1805 R/A 93 4 4 01/23/2021 1800 R/A 94 3 4 01/17/2020 1800 R/A 93 3 4 08/18/2019 1800 R/A 90 4 5 04/08/2019 1855 R/A 93 3 3 11/20/2018 1780 R/A 95 2 3 08/18/2018 1840 R/A 92 0 0 02/17/2018 1805 R/A 97 3 3 10/07/2017 1760 R/A 92 3 5 SIGNATURE: Aysha Nuñez RRT PATIENT NAME: Nino Rosa DATE: January 21, 2022 TIME: 9:24 AM _ Radiology Data 12/03/[address] RESULT: There are prominent, not pathologically enlarged mediastinal lymph nodes, likely reactive. No janell axillary adenopathy is identified. Heart is stable in size. There is a trace pericardial effusion. The main pulmonary artery is dilated, measuring approximately 3.4 cm, which can be seen with pulmonary arterial hypertension. There is fluid seen esophagus, suggesting gastroesophageal reflux disease. Evaluation of the lung parenchyma demonstrates suture material within the left upper lobe, also present on the prior examination. When comparison is made to the prior exam, there has been interval improvement of vague patchy airspace opacities, suggesting improving inflammation/infectious disease. There is mild dependent atelectasis. There is no pleural effusion, endobronchial lesion, or pneumothorax. Limited scans through the upper abdomen demonstrate nonspecific collapse of the gallbladder. There is no destructive bony lesion. 04/08/19 CXR: RESULT: Lines, tubes, and devices: None. Lungs and pleura: No airspace consolidations. Stable postsurgical changes in the left lung with mild linear scarring or atelectasis in the left perihilar region. Smooth bronchial wall thickening also seen in the perihilar regions of both lungs. Smooth pleural thickening is again seen along the upper lateral chest brock extending into the apices. No pleural effusion or pneumothorax. Cardiomediastinal silhouette: Normal cardiomediastinal silhouette. Other: No acute chest wall osseous abnormality. 09/09/[address] (independently reviewed by myself); Lung parenchyma and airways: Improved groundglass opacities left upper lung. No new or progressive inflammatory finding. Chronic left upper pleural-parenchymal scarring. Patent central airways. Unremarkable peripheral airways. No new or progressive suspect nodule. Pleural space: Unchanged left upper lobe chronic scarring/tethering Lower neck, lymph nodes, and mediastinum: No significant change. The imaged thyroid gland is normal. No lymphadenopathy in the supraclavicular, axillary, mediastinal, or hilar regions. Heart, pericardium, and thoracic vessels: No significant change, no acute abnormality. No thoracic aortic aneurysm. Unchanged mild dilation main pulmonary artery trunk discussed in prior reports. The cardiac chambers are normal in size. No coronary artery atherosclerotic calcifications are noted, although the study is not optimized for coronary assessment. No pericardial effusion or thickening. Bones and soft tissues: There is a new left latissimus dorsi probable deep intramuscular and adjacent intermuscular lobulated soft tissue density structure extending approximately 15 cm superior to inferior, as much as 10 cm medial to lateral and up to 4 cm anterior to posterior thickness. Associated new enlargement of the latissimus dorsi. (For example 2:164) No acute osseous abnormality Upper abdomen: No acute findings Proposition Player (topogram) images: Frontal view. Large external artifact base of the left neck. Additional external artifact. Nonobstructive upper abdominal bowel gas pattern. Preexistent elevation right hemidiaphragm. No obvious pulmonary consolidations or effusions. Echocardiogram Was an echo performed?: No 02/18/14: CONCLUSIONS: - Technically difficult exam due to body habitus. - Exam indication: CHF - The left ventricle is normal in size. There is mild left ventricular hypertrophy. Left ventricular systolic function is normal. EF = 55 5% (visual est.) Baseline left ventricular diastolic function is normal. - The right ventricle is normal in size. Right ventricular systolic function is normal. - There are no significant valvular abnormalities. - No prior echocardiographic exam available for comparison. 08/12/17: CONCLUSIONS: - Technically difficult exam due to body habitus. - Exam indication: SVT - The left ventricle is small. Left ventricular systolic function is normal. EF = 60 5% (2D biplane) Definity contrast used for endocardial border detection. Grade I left ventricular diastolic dysfunction. - The right ventricle is normal in size. Right ventricular systolic function is mildly decreased. - Suboptimal subcostal images. Could not assess the IVC and hepatic veins. - Exam was compared with the prior CC echocardiographic exam performed on 02/18/14 at [facility]. 09/05/2021 CONCLUSIONS: - Technically difficult exam due to body habitus. - Exam indication: Pulmonary Hypertension, Shortness of breath - The left ventricle is normal in size. Left ventricular systolic function is normal. EF = 62 5% (2D biplane) Definity contrast used for endocardial border detection. Left ventricular diastolic function was not evaluated. - The right ventricle is mildly dilated. Right ventricular systolic function is normal. - Technically difficult apical images, no siginificant valvular abnormalities identified. - Exam was compared with the prior CC echocardiographic exam performed on 08/12/2017 ([place]). Similar findings. Heart Catheterization Was a right heart catheterization performed?: No Pathology 03/15/14: FINAL DIAGNOSIS Left lung, lingula, thoracoscopic biopsy ([id number]; 03/10/2014) - Organizing pneumonia with areas of acute lung injury, marked desquamated interstitial pneumonia (DIP)-like pattern and reactive lymphocytic infiltrate (see comment). COMMENT The predominant pathology is patches of organizing pneumonia seenthroughout the tissue. In some areas of the biopsy, there is ongoing acute lung injury with intra-alveolar fibrin and reactive type 2 pneumocytes. In addition, there are abundant alveolar macrophages diffusely involving the entire biopsy, consistent with a desquamative interstitial pneumonia (DIP-type) pattern. 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 Finally, in the background there is reactive bronchus-associated lymphoid tissue around many of the bronchovascular areas and some of the vessels. In this setting of a diffusely inflamed lung, this most likely represents a reactive inflammatory infiltrate. However, the DIP-like reaction is obscuring much of the underlying lung architecture; therefore, the possibility of an interstitial pneumonia (e.g., non-specific interstitial pneumonia) cannot be entirely excluded. There is no evidence in this specimen of interstitial fibrosis and the injury appears steroid response. No pulmonary hemorrhage and no vasculitis is seen. No birefringent material is seen. Overall, the findings may represent sequelae of an infection. A Movat highlights the presence of organizing pneumonia. 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 He is clinically and spirometrically improved with decreased rituximab interval PLAN 1. Continue all medications as before. 2. Follow-up 6 months with testing All questions were answered to Nino Rosa's satisfaction, Nino Aburto Sarah verbalizes understanding and agrees with treatment plan and was encouraged to contact me with questions All questions were answered to Nino Rosa's satisfaction, Nino Rosa verbalizes understanding and agrees with treatment plan and was encouraged to contact me with questions INTERSTITIAL LUNG DISEASE DATABASE CHECKLIST Treating diagnosis: IPAF: Idiopathic pneumonia with autoimmune features Biopsy confirmed?: Yes: Date: Was the patient discussed at a multidisciplinary discussion?: No Current ILD medications: Azathioprine, Rituximab ILD medications at end of visit: Azathioprine, Rituximab Is the patient being treated with oxygen therapy?: No Does the patient have pulmonary hypertension: Uncertain Is the patient being referred for transplantation?: No CC: PCP: Jennyfer Denise DO, DO documented in this encounter [facility] 01-21-2022 History of Present illness Narrative PULM FUNCTION SMARTBLOCK: Provider: Jose Walter MD Spirometry: 1 DLCO: 1 6 MW: 1 System: [id number] documented in this encounter [facility] 01-21-2022 Procedure note Associated Ord er(s): SIX MINUTE WALK Images from the original note were not included. RESPIRATORY THERAPY SIX MINUTE WALK TEST OXIMETRY REPORT Six Minute Walk Test for This Encounter Oxygen Device Liters FIO2 SpO2% HR Activity Feet Speed (MPH) Flag R/A 100 98 Resting R/A 95 152 Six Minute Walk 1795 3.4 R/A 100 124 Recovery 1 minute post R/A 100 109 Recovery 2 minute post R/A 100 108 Recovery 3 minute post General Information Height Weight Smoking Status Pulse Oximetry Site Oximeter Pre Blood Pressure Post Blood Pressure Total Time Spent (min) 174 cm (5' 8.5 ) 139.1 kg (306 lb 10.6 oz) Ex-smoker Forehead Ryanimo 121/77 201/99 30 _ Distance Walked (meters) Distance Walked (feet) Male Predicted Walk Distance (feet) Male Lower Limit of Normal (feet) Male % Predicted Total Duration Of The Stops (seconds) 547.12 1795 1647.97 1145.97 108.9 -- _ Lowest SpO2 During 6 Minute Walk Pre-Laura Dyspnea Rating Pre-Laura Fatigue Rating Post Laura Dyspnea Rating Post Laura Fatigue Rating O2 Supply Carrier Walking Assistance/Device 95 % 0 0 3 3 -- None Six Minute Walk Trend (Previous Encounters) Test Date Distance Walked (feet) Oxygen Device Liters FIO2 SpO2% Laura Dyspnea Rating Laura Fatigue Rating 10/22/2021 1800 R/A 93 3 3 07/30/2021 1920 R/A 84 7 5 05/22/2021 1805 R/A 93 4 4 01/23/2021 1800 R/A 94 3 4 01/17/2020 1800 R/A 93 3 4 08/18/2019 1800 R/A 90 4 5 04/08/2019 1855 R/A 93 3 3 11/20/2018 1780 R/A 95 2 3 08/18/2018 1840 R/A 92 0 0 02/17/2018 1805 R/A 97 3 3 10/07/2017 1760 R/A 92 3 5 SIGNATURE: Aysha Nuñez RRT PATIENT NAME: Nino Rosa DATE: January 21, 2022 TIME: 9:24 AM _ Comments: Post BP retaken 5 mins Post 160/83 The patient completed the six minute walk test with No stops. . The patient required Room Air to complete the test. The distance the patient walked in six minutes is within the predicted normal range. The six minute walk distance today does not demonstrate a clinically significant change (125 feet decrease), when compared to the historically highest six minute walk distance from a test dated 07/30/21. Today's distance represents a 5 feet decrease compared to the last visit on 10/22/21. The patient perceived their dyspnea during the six minute walk test to be 3-Moderate on the modified Laura scale. The patient perceived their fatigue during the six minute walk test to be 3-Moderate on the modified Laura scale. I have reviewed the findings and made appropriate revisions as needed. SIGNATURE: Wesley Carlin MD PATIENT NAME: Nino Rosa DATE: January 21, 2022 TIME: 10:47 AM documented in this encounter [facility] 11-15-2021 Miscellaneous Notes Patient called requesting a status update for his appeal process. Admin informed patient that appeal letter had been written. Letter has been scanned into [employer] and pharmacy authorization team has been notified to expedite. documented in this encounter [facility] 10-30-2021 Miscellaneous Notes Summary: Appeal - Peer to Peer denied [employer] called back regarding peer to peer. These are only allowed during period of drug evaluation which ended 09/22 Standard appeal needed, this will consist of any clinical documentation or literature that supports the increase of medication dispense from 6 months to every 4 months Fax: Standard Medicare Appeal [employer] Appeal nurse- [employer] Called appeal line ([phone]) and left message with times approved by Dr. Walter for a peer to peer. Awaiting call back. documented in this encounter [facility] 10-22-2021 Instructions Sanjuana Briones MD - 10/22/2021 10:21 AM EDT -We will work on Rituxan infusion prior authorization and will increase the frequency to once every 4 months -Spirometry, DLCO, 6-minute walk test in 3 months -albuterol rescue inhaler prn -return to clinic in 3 months documented in this encounter [facility] 10-22-2021 History of Present illness Narrative Images from the original note were not included. HISTORY OF PRESENT ILLNESS: Nino Rosa is a very pleasant 51 year old male who presents today for routine follow-up for IPAF. He was last seen by Gela Jordan APRN.CNP in August and since then, he's had no significant interval events. Today, he reports that his lungs are feeling better, but he feels like he needs his next rituximab infusion. He's noting diffuse, generalised joint pain and increased nausea. He gets two infusions every 6 months (last in April 2021), and he is waiting for insurance approval for this year's infusions. Additionally, he's noting significantly worsening fatigue for the past 3 weeks. He believes that rituximab significantly helps, but it is not holding him for the 6 month interval. He is not on prednisone at this time. He reports that he's done taking prednisone. He was on the prednisone for about 2 months the last time, and he gained significant weight. He felt the prednisone helped, but the side effects were too much for him to want to start again. He remains maintained on plaquenil and azathioprine (150mg daily). He denies fevers, cough or chest congestion. He notes no shortness of breath, nor does he have difficulty walking or performing activities of daily living due to shortness of breath. He has some lower extremity edema, especially during his recent trip to [place]. No near syncope, syncope, chest pain, palpitations, PND, orthopnea. Present joint pain, but no joint swelling or deformity. REVIEW OF SYSTEMS is per history of present illness and is otherwise negative on detailed 14 point review. 10/22/21: Past medical, surgical, social, family, allergy and medication history reviewed and updated as appropriate. PAST MEDICAL HISTORY Diagnosis Date Gout HTN (hypertension) Interstitial lung disease (HCC) Lung nodules Tachycardia PAST SURGICAL HISTORY Procedure Laterality Date BRONCHOSCOPY PAST SURGICAL HISTORY OF 2013 VATS SOCIAL HISTORY: Tobacco Use Smoking status: Former Smoker Packs/day: 1.00 Years: 20.00 Pack years: 20 Types: Cigarettes Quit date: 07/14/2007 Years since quittin.2 Smokeless tobacco: Never Used Tobacco comment: Smoked 1 ppd ~ 20 years; Denies Vaping Alcohol Use: Approximately 4.5 oz/week [which includes 3 Cans of Beer (12oz) per week] (Socially) Drug Use: No FAMILY HISTORY Problem Relation Age of Onset Ischemic Heart Disease Maternal Grandfather ALLERGIES No Known Allergies CURRENT MEDICATIONS Current Outpatient Medications Medication Sig albuterol HFA (PROVENTIL HFA, VENTOLIN HFA) 90 mcg/actuation inhaler Inhale 2 Puffs as instructed every 4 hours as needed for wheezing/shortness of breath. DULoxetine (CYMBALTA) 60 mg capsule Take 1 capsule by mouth once daily. azaTHIOprine (IMURAN) 50 mg tablet TAKE THREE (3) TABLETS BY MOUTH EVERY DAY amLODIPine (NORVASC) 10 mg tablet Take 10 mg by mouth once daily. Benzonatate 200 mg capsule Take by mouth. carBAMazepine (TEGRETOL) 200 mg tablet Take by mouth. sulfamethoxazole-trimethoprim (BACTRIM DS) 800-160 mg per tablet Take 1 tablet by mouth every Friday,Friday,Friday. hydrOXYchloroQUINE (PLAQUENIL) 200 mg tablet Take 2 tablets by mouth once daily. aspirin, enteric coated (ASPIRIN, ENTERIC COATED) 81 mg EC tablet Take 81 mg by mouth once daily. oxyCODONE-acetaminophen (PERCOCET) 7.5-325 mg tablet Take 1 tablet by mouth every 12 hours as needed for pain. testosterone cypionate (DEPO-TESTOSTERONE) 200 mg/mL injection INJECT 200MG INTRAMUSCULARLY ONCE EVERY 4 WEEKS olmesartan (BENICAR) 40 mg tablet Take 40 mg by mouth once daily. RITUXIMAB (RITUXAN INTRAVEN.) Inject 1,000 mg intravenously. 2 treatments 2 weeks apart and may repeat in 6 months PHYSICAL EXAM: General: In no apparent distress 10/22/21 0959 BP: 132/89 Pulse: 103 Temp: 36.6 C (97.9 F) TempSrc: Temporal SpO2: 98% Weight: (!) 138.3 kg (304 lb 14.3 oz) Height: 175.3 cm (5' 9 ) HEENT: Masked. Neck: Supple, without lymphadenopathy, thyromegaly or JVD. Chest: Bilateral wheeze. Cardiac: Regular rate and rhythm, without murmurs, gallops or rubs. Abdomen: Normal bowel sounds, soft, nontender, without hepatosplenomegaly. Extremities: No clubbing or cyanosis. Bilateral pitting edema. Musculoskeletal: Diffuse joint tenderness. Skin: No rash or suspicious lesions of visualized exposed areas. Neurologic: Nonfocal, strength 5/5. DATA REVIEWED (independently reviewed by myself) Laboratory Data Laboratory data reviewed in [facility] Everywhere. GLADYS GLADYS (no units) Date Value 03/23/2015 Positive GLADYS by EIA (OD Ratio) Date Value 02/17/2014 2.5 Rheumatoid Factor Rheumatoid Factor (IU/mL) Date Value 03/23/2015 <10 TSH TSH (uU/mL) Date Value 10/13/2018 3.460 HIV HIV 12 Combo (Ag/Ab) (no units) Date Value 03/23/2015 Non Reactive Hepatitis B Surface Antigen HBsAg (no units) Date Value 03/23/2015 Negative Hepatitis C Hep C Antibody IA (no units) Date Value 03/23/2015 Negative NT PRO BNP Lab Results Component Value Date PBNP <50 06/10/2021 PBNP <50 11/08/2020 PBNP 37 02/17/2014 Chemistries Lab Results Component Value Date NA 140 09/05/2021 NA 139 06/12/2021 NA 139 06/11/2021 K 5.0 09/05/2021 K 4.6 06/12/2021 K 4.5 06/11/2021 CHLOR 97 09/05/2021 CHLOR 102 06/12/2021 CHLOR 102 06/11/2021 CO2 30 09/05/2021 CO2 28 06/12/2021 CO2 24 06/11/2021 BUN 14 09/05/2021 BUN 14 06/12/2021 BUN 12 06/11/2021 CREAT 0.93 09/05/2021 CREAT 0.71 (L) 06/12/2021 CREAT 0.76 06/11/2021 GLUC 101 (H) 09/05/2021 GLUC 104 (H) 06/12/2021 GLUC 102 (H) 06/11/2021 ANION 13 09/05/2021 ANION 9 06/12/2021 ANION 13 06/11/2021 Liver Function Lab Results Component Value Date AST 28 09/05/2021 AST 72 (H) 06/12/2021 AST 34 06/11/2021 ALT 48 09/05/2021 ALT 72 (H) 06/12/2021 ALT 26 06/11/2021 ALKPHOS 67 09/05/2021 ALKPHOS 64 06/12/2021 ALKPHOS 62 06/11/2021 TBILI 0.3 09/05/2021 TBILI 0.4 06/12/2021 TBILI 0.4 06/11/2021 CBC Lab Results Component Value Date HB 17.1 (H) 09/05/2021 HB 16.0 06/12/2021 HB 15.4 06/11/2021 HCT 52.3 (H) 09/05/2021 HCT 46.5 06/12/2021 HCT 45.8 06/11/2021 WBC 11.57 (H) 09/05/2021 WBC 5.91 06/12/2021 WBC 3.06 (L) 06/11/2021 PLT 295 09/05/2021 PLT 383 06/12/2021 PLT 329 06/11/2021 Pulmonary Function Data PFT available: Yes. PFT results moderate restriction with normal diffusion. Diffusion with 24% improvement. Date FVC FEV1 FEV1/FVC TLC DLCO 11/20/18 3.59/73.7 2.88/74.6 80 32.64/106.5 04/08/19 3.59/73.8 2.82/73.3 78 33.51/109.3 08/18/19 3.32/68.3 2.66/69.3 80 34.80/114.4 01/17/20 3.31/70.3 2.64/70.9 80 34.61/115.0 09/18/20 3.02/64 2.55/68 84 26.38/95 01/23/21 3.34/71.2 2.69/72.7 80 32.21/107.8 05/22/21 3.27/70.0 2.59/70.3 79 31.66/106.8 07/30/2021 2.79/59 2.19/59 78 24.67/83 09/05/2021 2.99/64 2.35/64 79 32.78/110 10/22/21 3.05/65 2.42/65 79 27.87/94 Six minute walk Six minute walk available:yes Wilfrido Florez CRT 10/22/2021 8:47 AM Cosign Needed RESPIRATORY THERAPY SIX MINUTE WALK TEST OXIMETRY REPORT Six Minute Walk Test for This Encounter Oxygen Device Liters FIO2 SpO2% HR Activity Feet Speed (MPH) Flag R/A 100 109 Resting R/A 93 156 Six Minute Walk 1800 3.4 R/A 99 133 Recovery 1 minute post R/A 100 123 Recovery 2 minute post R/A 100 120 Recovery 3 minute post General Information Height Weight Smoking Status Pulse Oximetry Site Oximeter Pre Blood Pressure Post Blood Pressure Total Time Spent (min) 174 cm (5' 8.5 ) 138.3 kg (304 lb 14.3 oz) Ex-smoker Forehead Masimo 157/90 164/93 30 _ Distance Walked (meters) Distance Walked (feet) Male Predicted Walk Distance (feet) Male Lower Limit of Normal (feet) Male % Predicted Total Duration Of The Stops (seconds) 548.64 1800 1652.56 1150.56 108.9 _ Lowest SpO2 During 6 Minute Walk Pre-Laura Dyspnea Rating Pre-Laura Fatigue Rating Post Laura Dyspnea Rating Post Laura Fatigue Rating O2 Supply Carrier Walking Assistance/Device 92 % 0 0 3 3 None Six Minute Walk Trend (Previous Encounters) Test Date Distance Walked (feet) Oxygen Device Liters FIO2 SpO2% Laura Dyspnea Rating Laura Fatigue Rating 07/30/2021 1920 R/A 84 7 5 05/22/2021 1805 R/A 93 4 4 01/23/2021 1800 R/A 94 3 4 01/17/2020 1800 R/A 93 3 4 08/18/2019 1800 R/A 90 4 5 04/08/2019 1855 R/A 93 3 3 11/20/2018 1780 R/A 95 2 3 08/18/2018 1840 R/A 92 0 0 02/17/2018 1805 R/A 97 3 3 10/07/2017 1760 R/A 92 3 5 SIGNATURE: Wilfrido Florez RRT/CPJAIMEE PATIENT NAME: Nino Rosa DATE: October 22, 2021 TIME: 8:46 AM Radiology Data Radiology Data 12/03/[address] RESULT: There are prominent, not pathologically enlarged mediastinal lymph nodes, likely reactive. No janell axillary adenopathy is identified. Heart is stable in size. There is a trace pericardial effusion. The main pulmonary artery is dilated, measuring approximately 3.4 cm, which can be seen with pulmonary arterial hypertension. There is fluid seen esophagus, suggesting gastroesophageal reflux disease. Evaluation of the lung parenchyma demonstrates suture material within the left upper lobe, also present on the prior examination. When comparison is made to the prior exam, there has been interval improvement of vague patchy airspace opacities, suggesting improving inflammation/infectious disease. There is mild dependent atelectasis. There is no pleural effusion, endobronchial lesion, or pneumothorax. Limited scans through the upper abdomen demonstrate nonspecific collapse of the gallbladder. There is no destructive bony lesion. 04/08/19 CXR: RESULT: Lines, tubes, and devices: None. Lungs and pleura: No airspace consolidations. Stable postsurgical changes in the left lung with mild linear scarring or atelectasis in the left perihilar region. Smooth bronchial wall thickening also seen in the perihilar regions of both lungs. Smooth pleural thickening is again seen along the upper lateral chest brock extending into the apices. No pleural effusion or pneumothorax. Cardiomediastinal silhouette: Normal cardiomediastinal silhouette. Other: No acute chest wall osseous abnormality. 09/09/[address] (independently reviewed by myself); Lung parenchyma and airways: Improved groundglass opacities left upper lung. No new or progressive inflammatory finding. Chronic left upper pleural-parenchymal scarring. Patent central airways. Unremarkable peripheral airways. No new or progressive suspect nodule. Pleural space: Unchanged left upper lobe chronic scarring/tethering Lower neck, lymph nodes, and mediastinum: No significant change. The imaged thyroid gland is normal. No lymphadenopathy in the supraclavicular, axillary, mediastinal, or hilar regions. Heart, pericardium, and thoracic vessels: No significant change, no acute abnormality. No thoracic aortic aneurysm. Unchanged mild dilation main pulmonary artery trunk discussed in prior reports. The cardiac chambers are normal in size. No coronary artery atherosclerotic calcifications are noted, although the study is not optimized for coronary assessment. No pericardial effusion or thickening. Bones and soft tissues: There is a new left latissimus dorsi probable deep intramuscular and adjacent intermuscular lobulated soft tissue density structure extending approximately 15 cm superior to inferior, as much as 10 cm medial to lateral and up to 4 cm anterior to posterior thickness. Associated new enlargement of the latissimus dorsi. (For example 2:164) No acute osseous abnormality Upper abdomen: No acute findings Proposition Player (topogram) images: Frontal view. Large external artifact base of the left neck. Additional external artifact. Nonobstructive upper abdominal bowel gas pattern. Preexistent elevation right hemidiaphragm. No obvious pulmonary consolidations or effusions. Echocardiogram Was an echo performed?: No 02/18/14: CONCLUSIONS: - Technically difficult exam due to body habitus. - Exam indication: CHF - The left ventricle is normal in size. There is mild left ventricular hypertrophy. Left ventricular systolic function is normal. EF = 55 5% (visual est.) Baseline left ventricular diastolic function is normal. - The right ventricle is normal in size. Right ventricular systolic function is normal. - There are no significant valvular abnormalities. - No prior echocardiographic exam available for comparison. 08/12/17: CONCLUSIONS: - Technically difficult exam due to body habitus. - Exam indication: SVT - The left ventricle is small. Left ventricular systolic function is normal. EF = 60 5% (2D biplane) Definity contrast used for endocardial border detection. Grade I left ventricular diastolic dysfunction. - The right ventricle is normal in size. Right ventricular systolic function is mildly decreased. - Suboptimal subcostal images. Could not assess the IVC and hepatic veins. - Exam was compared with the prior echocardiographic exam performed on 02/18/14 at [facility]. 09/05/2021 CONCLUSIONS: - Technically difficult exam due to body habitus. - Exam indication: Pulmonary Hypertension, Shortness of breath - The left ventricle is normal in size. Left ventricular systolic function is normal. EF = 62 5% (2D biplane) Definity contrast used for endocardial border detection. Left ventricular diastolic function was not evaluated. - The right ventricle is mildly dilated. Right ventricular systolic function is normal. - Technically difficult apical images, no siginificant valvular abnormalities identified. - Exam was compared with the prior echocardiographic exam performed on 08/12/2017 ([facility]). Similar findings. Heart Catheterization Was a right heart catheterization performed?: No Pathology 03/15/14: FINAL DIAGNOSIS Left lung, lingula, thoracoscopic biopsy ([id number]; 03/10/2014) - Organizing pneumonia with areas of acute lung injury, marked desquamated interstitial pneumonia (DIP)-like pattern and reactive lymphocytic infiltrate (see comment). COMMENT The predominant pathology is patches of organizing pneumonia seenthroughout the tissue. In some areas of the biopsy, there is ongoing acute lung injury with intra-alveolar fibrin and reactive type 2 pneumocytes. In addition, there are abundant alveolar macrophages diffusely involving the entire biopsy, consistent with a desquamative interstitial pneumonia (DIP-type) pattern. 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 Finally, in the background there is reactive bronchus-associated lymphoid tissue around many of the bronchovascular areas and some of the vessels. In this setting of a diffusely inflamed lung, this most likely represents a reactive inflammatory infiltrate. However, the DIP-like reaction is obscuring much of the underlying lung architecture; therefore, the possibility of an interstitial pneumonia (e.g., non-specific interstitial pneumonia) cannot be entirely excluded. There is no evidence in this specimen of interstitial fibrosis and the injury appears steroid response. No pulmonary hemorrhage and no vasculitis is seen. No birefringent material is seen. Overall, the findings may represent sequelae of an infection. A Movat highlights the presence of organizing pneumonia. 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 He contracted COVID-19 in May 2021. Since that time his breathing has largely recovered. Echo not substantially changed. Has some evidence of mild RV strain. PLAN 1. Continue all medications as before. 2. Will work with prior authorization team to approve rituximab infusions. 3. Increase rituximab to every 4 months. 4. Begin using rescue inhaler when noting a wheeze. 5. Return in 3 months with repeat testing. All questions were answered to Nino Rosa's satisfaction, Nino Rosa verbalizes understanding and agrees with treatment plan and was encouraged to contact me with questions I spent 30 minutes face to face with the patient. >50% of that time was spent counseling and coordinating care regarding interpretation of symptoms and tests and diagnostic and therapeutic options. All questions were answered to Nino Rosa's satisfaction, Nino Rosa verbalizes understanding and agrees with treatment plan and was encouraged to contact me with questions INTERSTITIAL LUNG DISEASE DATABASE CHECKLIST Treating diagnosis: IPAF: Idiopathic pneumonia with autoimmune features Biopsy confirmed?: Yes: Date: Was the patient discussed at a multidisciplinary discussion?: No Current ILD medications: Azathioprine, Rituximab ILD medications at end of visit: Azathioprine, Rituximab Is the patient being treated with oxygen therapy?: No Does the patient have pulmonary hypertension: Uncertain Is the patient being referred for transplantation?: No CC: PCP: Jennyfer Denise, DO, DO By signing my name below, I, Lamar Albrecht, attest that this documentation has been prepared under the direction and in the presence of Dr. Briones and Dr. Walter. Electronically signed, Hunter Patterson October 22, 2021 10:13 AM Provider Attestation: I, Dr. Sanjuana Briones personally performed the services described in this documentation. All medical record entries made by the scribe were at my direction and in my presence. I have reviewed the chart and discharge instructions (if applicable) and agree that the record reflects my personal performance and is accurate and complete. Dr. Sanjuana Briones MD Fellow, Pulmonary & Critical Care Medicine Respiratory [place] Mobile and Pager : [phone] October 22, 2021 Provider Attestation: I, Dr. Jose Walter personally performed the services described in this documentation. All medical record entries made by the scribe were at my direction and in my presence. I have reviewed the chart and discharge instructions (if applicable) and agree that the record reflects my personal performance and is accurate and complete. Dr. Jose Walter MD MSCR October 22, 2021 PULMONARY ATTENDING I have personally interviewed and examined the patient. I have personally verified elements of the exam listed above. Interval changes or irregualrities are as noted. I have personally and independently reviewed laboratory, radiographic and procedural data. I have personally reviewed the problem list above and concur. Changes, if any, are noted. I have personally reviewed the plan list above and concur. Changes, if any, are noted. Jose Walter MD documented in this encounter [facility] 10-22-2021 Procedure note Associated Order(s): SIX MINUTE WALK Images from the original note were not included. RESPIRATORY THERAPY SIX MINUTE WALK TEST OXIMETRY REPORT Six Minute Walk Test for This Encounter Oxygen Device Liters FIO2 SpO2% HR Activity Feet Speed (MPH) Flag R/A 100 109 Resting R/A 93 156 Six Minute Walk 1800 3.4 R/A 99 133 Recovery 1 minute post R/A 100 123 Recovery 2 minute post R/A 100 120 Recovery 3 minute post General Information Height Weight Smoking Status Pulse Oximetry Site Oximeter Pre Blood Pressure Post Blood Pressure Total Time Spent (min) 174 cm (5' 8.5 ) 138.3 kg (304 lb 14.3 oz) Ex-smoker Forehead Masimo 157/90 164/93 30 _ Distance Walked (meters) Distance Walked (feet) Male Predicted Walk Distance (feet) Male Lower Limit of Normal (feet) Male % Predicted Total Duration Of The Stops (seconds) 548.64 1800 1652.56 1150.56 108.9 -- _ Lowest SpO2 During 6 Minute Walk Pre-Laura Dyspnea Rating Pre-Laura Fatigue Rating Post Laura Dyspnea Rating Post Laura Fatigue Rating O2 Supply Carrier Walking Assistance/Device 92 % 0 0 3 3 -- None Six Minute Walk Trend (Previous Encounters) Test Date Distance Walked (feet) Oxygen Device Liters FIO2 SpO2% Laura Dyspnea Rating Laura Fatigue Rating 07/30/2021 1920 R/A 84 7 5 05/22/2021 1805 R/A 93 4 4 01/23/2021 1800 R/A 94 3 4 01/17/2020 1800 R/A 93 3 4 08/18/2019 1800 R/A 90 4 5 04/08/2019 1855 R/A 93 3 3 11/20/2018 1780 R/A 95 2 3 08/18/2018 1840 R/A 92 0 0 02/17/2018 1805 R/A 97 3 3 10/07/2017 1760 R/A 92 3 5 SIGNATURE: Wilfrido Florez RRT/CORNELL PATIENT NAME: Nino Rosa DATE: October 22, 2021 TIME: 8:46 AM The patient completed the six minute walk test with No stops. . The patient required Room Air to complete the test. The distance the patient walked in six minutes is within the predicted normal range. The six minute walk distance today does not demonstrate a clinically significant change (120 feet decrease), when compared to the historically highest six minute walk distance from a test dated 07/30/21. Today's distance represents a 120 feet decrease compared to the last visit on 07/30/21. The patient perceived their dyspnea during the six minute walk test to be 3-Moderate on the modified Laura scale. The patient perceived their fatigue during the six minute walk test to be 3-Moderate on the modified Laura scale. I have reviewed the findings and made appropriate revisions as needed. SIGNATURE: Wesley Carlin MD PATIENT NAME: Nino Rosa DATE: October 22, 2021 TIME: 11:28 AM documented in this encounter [facility] 10-22-2021 History of Present illness Narrative PULM FUNCTION SMARTBLOCK: Provider: Jose Walter MD Spirometry: 1 DLCO: 1 6 MW: 1 System: [id number] documented in this encounter [facility] 09-05-2021 History of Present illness Narrative Images from the original note were not included. HISTORY OF PRESENT ILLNESS: Nino Rosa is a very pleasant 51 year old male who presents today for routine follow-up for IPAF. I last saw Mr. Rosa on 07/30/2021. Mr. Rosa is followed in the ILD clinic for IPAF, on rituximab, azathioprine 150mg daily, and plaquenil. He had his last rituximab infusions in April 2021. He contracted covid19 around [place]. He was in the hospital overnight in May and received dexamethasone and one administration of remdesivir. He felt better initialy after leaving the hospital, but then began to note increase in shortness of breath bang to his symptoms when his ILD first started. He took a week of prednisone that he had at home which did not make significant improvements. He had significant decline in PFTs, and also had desaturation on his walk. However, his CT chest, did not show any significant groundglass opacities or fibrosis. Despite the CT chest not showing much evidence of parenchymal impairment, he was placed on prednisone course and follows up today short term with repeat of gianluca, Dlco, oximetry and Echocardiogram. He is feeling a little better with his breathing, although not back to what it was. He doesn't like the prednisone. The steroid makes him hungry all the time and he has gained 12 lbs since appt in July. He is currently on 20mg daily. He denies fevers, cough or chest congestion. he has noted some wheezing on occasion. He has some trace LE edema, not changed. No near syncope, syncope, chest pain, palpitations, PND, orthopnea. No joint pains, swelling, skin rashes or other joint complaints. REVIEW OF SYSTEMS GENERAL: +weight gaine 12 lbs, No weight loss, malaise or fevers HEENT: Negative for frequent or significant headaches, No changes in hearing or vision, no nose bleeds or other nasal problems NECK: Negative for lumps, goiter, pain and significant neck swelling RESPIRATORY: See HPI CARDIOVASCULAR: Negative for chest pain, leg swelling, hypertension, CHF or palpitations GI: No nausea, vomiting, or diarrhea and No heartburn or reflux symptoms MUSCULOSKELETAL: Negative for joint pain or swelling, back pain or muscle pain SKIN: Negative for lesions, rash, and itching HEMATOLOGY/LYMPHOLOGY: Negative for prolonged bleeding, bruising easily or swollen nodes NEURO: No history of headaches, syncope, paralysis, seizures or tremors PAST MEDICAL HISTORY Diagnosis Date Gout HTN (hypertension) Interstitial lung disease (HCC) Lung nodules Tachycardia PAST SURGICAL HISTORY Procedure Laterality Date BRONCHOSCOPY PAST SURGICAL HISTORY OF 2013 VATS SOCIAL HISTORY: Social History Tobacco Use Smoking status: Former Smoker Packs/day: 1.00 Years: 20.00 Pack years: 20 Types: Cigarettes Quit date: 07/14/2007 Years since quittin.1 Smokeless tobacco: Never Used Tobacco comment: Smoked 1 ppd ~ 20 years; Denies Vaping Alcohol Use: Approximately 4.5 oz/week [which includes 3 Cans of Beer (12oz) per week] (Socially) Drug Use: No FAMILY HISTORY Problem Relation Age of Onset Ischemic Heart Disease Maternal Grandfather ALLERGIES No Known Allergies CURRENT MEDICATIONS DULoxetine (CYMBALTA) 60 mg capsule TAKE ONE CAPSULE BY MOUTH ONCE DAILY amLODIPine (NORVASC) 10 mg tablet Take 10 mg by mouth once daily. predniSONE (DELTASONE) 10 mg tablet Take 2 tablets by mouth once daily. Benzonatate 200 mg capsule Take by mouth. carBAMazepine (TEGRETOL) 200 mg tablet Take by mouth. sulfamethoxazole-trimethoprim (BACTRIM DS) 800-160 mg per tablet Take 1 tablet by mouth every Friday,Friday,Friday. azaTHIOprine (IMURAN) 50 mg tablet TAKE THREE (3) TABLETS BY MOUTH EVERY DAY hydrOXYchloroQUINE (PLAQUENIL) 200 mg tablet Take 2 tablets by mouth once daily. aspirin, enteric coated (ASPIRIN, ENTERIC COATED) 81 mg EC tablet Take 81 mg by mouth once daily. oxyCODONE-acetaminophen (PERCOCET) 7.5-325 mg tablet Take 1 tablet by mouth every 12 hours as needed for pain. testosterone cypionate (DEPO-TESTOSTERONE) 200 mg/mL injection INJECT 200MG INTRAMUSCULARLY ONCE EVERY 4 WEEKS amLODIPine (NORVASC) 2.5 mg tablet Take 2.5 mg by mouth once daily. olmesartan (BENICAR) 40 mg tablet Take 40 mg by mouth once daily. RITUXIMAB (RITUXAN INTRAVEN.) Inject 1,000 mg intravenously. 2 treatments 2 weeks apart and may repeat in 6 months PHYSICAL EXAM: General: In no apparent distress 09/05/21 1133 BP: 138/95 Pulse: 104 Resp: 18 Temp: 36.3 C (97.4 F) SpO2: 95% Weight: (!) 142.4 kg (314 lb) Height: 175.3 cm (5' 9 ) HEENT: Unremarkable; Neck: Supple, without lymphadenopathy, thyromegaly or JVD Chest: CTAB Cardiac: Regular rate and rhythm, without murmurs, gallops or rubs Abdomen: Normal bowel sounds, soft, nontender, without hepatosplenomegaly Extremities: No clubbing, cyanosis or edema Musculoskeletal: No synovitis Skin: No rash or suspicious lesions of visualized exposed areas Neurologic: Nonfocal, strength 5/5 DATA REVIEWED (independently reviewed by myself) Laboratory Data Laboratory data reviewed in [facility] Everywhere. GLADYS GLADYS (no units) Date Value 03/23/2015 Positive GLADYS by EIA (OD Ratio) Date Value 02/17/2014 2.5 Rheumatoid Factor Rheumatoid Factor (IU/mL) Date Value 03/23/2015 <10 TSH TSH (uU/mL) Date Value 10/13/2018 3.460 HIV HIV 12 Combo (Ag/Ab) (no units) Date Value 03/23/2015 Non Reactive Hepatitis B Surface Antigen HBsAg (no units) Date Value 03/23/2015 Negative Hepatitis C Hep C Antibody IA (no units) Date Value 03/23/2015 Negative NT PRO BNP Lab Results Component Value Date PBNP <50 06/10/2021 PBNP <50 11/08/2020 PBNP 37 02/17/2014 Chemistries Lab Results Component Value Date NA 139 06/12/2021 NA 139 06/11/2021 NA 140 06/10/2021 K 4.6 06/12/2021 K 4.5 06/11/2021 K 4.7 06/10/2021 CHLOR 102 06/12/2021 CHLOR 102 06/11/2021 CHLOR 101 06/10/2021 CO2 28 06/12/2021 CO2 24 06/11/2021 CO2 27 06/10/2021 BUN 14 06/12/2021 BUN 12 06/11/2021 BUN 14 06/10/2021 CREAT 0.71 (L) 06/12/2021 CREAT 0.76 06/11/2021 CREAT 0.88 06/10/2021 GLUC 104 (H) 06/12/2021 GLUC 102 (H) 06/11/2021 GLUC 99 06/10/2021 ANION 9 06/12/2021 ANION 13 06/11/2021 ANION 12 06/10/2021 Liver Function Lab Results Component Value Date AST 72 (H) 06/12/2021 AST 34 06/11/2021 AST 38 06/10/2021 ALT 72 (H) 06/12/2021 ALT 26 06/11/2021 ALT 29 06/10/2021 ALKPHOS 64 06/12/2021 ALKPHOS 62 06/11/2021 ALKPHOS 65 06/10/2021 TBILI 0.4 06/12/2021 TBILI 0.4 06/11/2021 TBILI 0.3 06/10/2021 CBC Lab Results Component Value Date HB 17.1 (H) 09/05/2021 HB 16.0 06/12/2021 HB 15.4 06/11/2021 HCT 52.3 (H) 09/05/2021 HCT 46.5 06/12/2021 HCT 45.8 06/11/2021 WBC 11.57 (H) 09/05/2021 WBC 5.91 06/12/2021 WBC 3.06 (L) 06/11/2021 PLT 295 09/05/2021 PLT 383 06/12/2021 PLT 329 06/11/2021 Pulmonary Function Data PFT available: Yes. PFT results moderate restriction with normal diffusion. Diffusion with 24% improvement. Date FVC FEV1 FEV1/FVC TLC DLCO 11/20/18 3.59/73.7 2.88/74.6 80 32.64/106.5 04/08/19 3.59/73.8 2.82/73.3 78 33.51/109.3 08/18/19 3.32/68.3 2.66/69.3 80 34.80/114.4 01/17/20 3.31/70.3 2.64/70.9 80 34.61/115.0 09/18/20 3.02/64 2.55/68 84 26.38/95 01/23/21 3.34/71.2 2.69/72.7 80 32.21/107.8 05/22/21 3.27/70.0 2.59/70.3 79 31.66/106.8 07/30/2021 2.79/59 2.19/59 78 24.67/83 09/05/2021 2.99/64 2.35/64 79 32.78/110 Ambulatory oximetry September 05, 2021 Oximetry with Ambulation Test for This Encounter O2 Device O2 Adapter NC O2 Flow SpO2% HR Activity Ft Walked (ft) Time (min) Avg Speed (MPH) R/A 99 105 Resting R/A 95 135 Walking, usual pace 665 3 2.52 R/A 99 107 Resting R/A 92 159 Walking, fastest pace 830 3 3.14 Six minute walk Six minute walk available: No Cheryl Phillips, [employer] 07/30/2021 3:08 PM Signed RESPIRATORY THERAPY SIX MINUTE WALK TEST OXIMETRY REPORT Six Minute Walk Test for This Encounter Oxygen Device Liters FIO2 SpO2% HR Activity Feet Speed (MPH) Flag R/A 98 104 Resting R/A 84 151 Six Minute Walk 1920 3.6 R/A 94 133 Recovery 1 minute post R/A 97 122 Recovery 2 minute post R/A 96 120 Recovery 3 minute post General Information Height Weight Smoking Status Pulse Oximetry Site Oximeter Pre Blood Pressure Post Blood Pressure Total Time Spent (min) 174 cm (5' 8.5 ) 137.4 kg (302 lb 14.6 oz) Ex-smoker Forehead Haroon 133/81 152/84 30 _ Distance Walked (meters) Distance Walked (feet) Male Predicted Walk Distance (feet) Male Lower Limit of Normal (feet) Male % Predicted Total Duration Of The Stops (seconds) 585.22 1920 1657.81 1155.81 115.8 _ Lowest SpO2 During 6 Minute Walk Pre-Laura Dyspnea Rating Pre-Laura Fatigue Rating Post Laura Dyspnea Rating Post Laura Fatigue Rating O2 Supply Carrier Walking Assistance/Device 84 % 0 0 7 5 None Six Minute Walk Trend (Previous Encounters) Test Date Distance Walked (feet) Oxygen Device Liters FIO2 SpO2% Laura Dyspnea Rating Laura Fatigue Rating 05/22/2021 1805 R/A 93 4 4 01/23/2021 1800 R/A 94 3 4 01/17/2020 1800 R/A 93 3 4 08/18/2019 1800 R/A 90 4 5 04/08/2019 1855 R/A 93 3 3 11/20/2018 1780 R/A 95 2 3 08/18/2018 1840 R/A 92 0 0 02/17/2018 1805 R/A 97 3 3 10/07/2017 1760 R/A 92 3 5 SIGNATURE: Cheryl Phillips RRT PATIENT NAME: Nino Rosa DATE: July 30, 2021 TIME: 3:08 PM _ Comments: Order obtained from Dr. Walter for desaturation study. The patient completed the six minute walk test with No stops. . The patient required Room Air to complete the test. The distance the patient walked in six minutes is within the predicted normal range. The six minute walk distance today does not demonstrate a clinically significant change (65 feet increase), when compared to the historically highest six minute walk distance from a test dated 04/08/19. Today's distance represents a 115 feet increase compared to the last visit on 05/22/21. The patient perceived their dyspnea during the six minute walk test to be 7-Very severe on the modified Laura scale. The patient perceived their fatigue during the six minute walk test to be 5-Severe on the modified Laura scale. I have reviewed the findings and made appropriate revisions as needed. SIGNATURE: eWsley Carlin MD PATIENT NAME: Nino Rosa DATE: July 30, 2021 TIME: 3:50 PM Radiology Data Radiology Data 12/03/[address] RESULT: There are prominent, not pathologically enlarged mediastinal lymph nodes, likely reactive. No janell axillary adenopathy is identified. Heart is stable in size. There is a trace pericardial effusion. The main pulmonary artery is dilated, measuring approximately 3.4 cm, which can be seen with pulmonary arterial hypertension. There is fluid seen esophagus, suggesting gastroesophageal reflux disease. Evaluation of the lung parenchyma demonstrates suture material within the left upper lobe, also present on the prior examination. When comparison is made to the prior exam, there has been interval improvement of vague patchy airspace opacities, suggesting improving inflammation/infectious disease. There is mild dependent atelectasis. There is no pleural effusion, endobronchial lesion, or pneumothorax. Limited scans through the upper abdomen demonstrate nonspecific collapse of the gallbladder. There is no destructive bony lesion. 04/08/19 CXR: RESULT: Lines, tubes, and devices: None. Lungs and pleura: No airspace consolidations. Stable postsurgical changes in the left lung with mild linear scarring or atelectasis in the left perihilar region. Smooth bronchial wall thickening also seen in the perihilar regions of both lungs. Smooth pleural thickening is again seen along the upper lateral chest brock extending into the apices. No pleural effusion or pneumothorax. Cardiomediastinal silhouette: Normal cardiomediastinal silhouette. Other: No acute chest wall osseous abnormality. 09/09/[address] (independently reviewed by myself); Lung parenchyma and airways: Improved groundglass opacities left upper lung. No new or progressive inflammatory finding. Chronic left upper pleural-parenchymal scarring. Patent central airways. Unremarkable peripheral airways. No new or progressive suspect nodule. Pleural space: Unchanged left upper lobe chronic scarring/tethering Lower neck, lymph nodes, and mediastinum: No significant change. The imaged thyroid gland is normal. No lymphadenopathy in the supraclavicular, axillary, mediastinal, or hilar regions. Heart, pericardium, and thoracic vessels: No significant change, no acute abnormality. No thoracic aortic aneurysm. Unchanged mild dilation main pulmonary artery trunk discussed in prior reports. The cardiac chambers are normal in size. No coronary artery atherosclerotic calcifications are noted, although the study is not optimized for coronary assessment. No pericardial effusion or thickening. Bones and soft tissues: There is a new left latissimus dorsi probable deep intramuscular and adjacent intermuscular lobulated soft tissue density structure extending approximately 15 cm superior to inferior, as much as 10 cm medial to lateral and up to 4 cm anterior to posterior thickness. Associated new enlargement of the latissimus dorsi. (For example 2:164) No acute osseous abnormality Upper abdomen: No acute findings Proposition Player (topogram) images: Frontal view. Large external artifact base of the left neck. Additional external artifact. Nonobstructive upper abdominal bowel gas pattern. Preexistent elevation right hemidiaphragm. No obvious pulmonary consolidations or effusions. Echocardiogram Was an echo performed?: No 02/18/14: CONCLUSIONS: - Technically difficult exam due to body habitus. - Exam indication: CHF - The left ventricle is normal in size. There is mild left ventricular hypertrophy. Left ventricular systolic function is normal. EF = 55 5% (visual est.) Baseline left ventricular diastolic function is normal. - The right ventricle is normal in size. Right ventricular systolic function is normal. - There are no significant valvular abnormalities. - No prior echocardiographic exam available for comparison. 08/12/17: CONCLUSIONS: - Technically difficult exam due to body habitus. - Exam indication: SVT - The left ventricle is small. Left ventricular systolic function is normal. EF = 60 5% (2D biplane) Definity contrast used for endocardial border detection. Grade I left ventricular diastolic dysfunction. - The right ventricle is normal in size. Right ventricular systolic function is mildly decreased. - Suboptimal subcostal images. Could not assess the IVC and hepatic veins. - Exam was compared with the prior echocardiographic exam performed on 02/18/14 at [facility]. 09/05/2021 CONCLUSIONS: - Technically difficult exam due to body habitus. - Exam indication: Pulmonary Hypertension, Shortness of breath - The left ventricle is normal in size. Left ventricular systolic function is normal. EF = 62 5% (2D biplane) Definity contrast used for endocardial border detection. Left ventricular diastolic function was not evaluated. - The right ventricle is mildly dilated. Right ventricular systolic function is normal. - Technically difficult apical images, no siginificant valvular abnormalities identified. - Exam was compared with the prior echocardiographic exam performed on 08/12/2017 ([place]). Similar findings. 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 COMMENT The predominant pathology is patches of organizing pneumonia seen throughout the tissue. In some areas of the biopsy, there is ongoing acute lung injury with intra-alveolar fibrin and reactive type 2 pneumocytes. In addition, there are abundant alveolar macrophages diffusely involving the entire biopsy, consistent with a desquamative interstitial pneumonia (DIP-type) pattern. 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 Finally, in the background there is reactive bronchus-associated lymphoid tissue around many of the bronchovascular areas and some of the vessels. In this setting of a diffusely inflamed lung, this most likely represents a reactive inflammatory infiltrate. However, the DIP-like reaction is obscuring much of the underlying lung architecture; therefore, the possibility of an interstitial pneumonia (e.g., non-specific interstitial pneumonia) cannot be entirely excluded. There is no evidence in this specimen of interstitial fibrosis and the injury appears steroid response. No pulmonary hemorrhage and no vasculitis is seen. No birefringent material is seen. Overall, the findings may represent sequelae of an infection. A Movat highlights the presence of organizing pneumonia. 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 He contracted covid19 in May 2021. Since that time he has noted increase in shortness of breath and had decline in his PFTs and desaturation on 6MWT in July 2021. He was placed on course of prednisone 30mg x 2 weeks, then 20mg daily. His breathing is feeling a little better, but he has gained 12lbs from the steroid use. He has 24% improvement in DLco and no desaturation on his oximetry. Echo not substantially changed. Has some evidence of mild RV strain. PLAN Taper prednisone off. 10mg x one week, then 5mg x one week, then stop. continue all other medications. labs today increase exercise, weight loss return to clinic as scheduled with PFTs and appt with Dr. Walter in October. Encouraged to obtain covid booster 2-4 weeks prior to next rituximab infusion. All questions were answered to Nino Rosa's satisfaction, Nino Rosa verbalizes understanding and agrees with treatment plan and was encouraged to contact me with questions Gela Jordan APRN.CNP I spent 45 minutes face to face with the patient. >50% of that time was spent counseling and coordinating care regarding interpretation of symptoms and tests and diagnostic and therapeutic options. All questions were answered to Nino Rosa's satisfaction, Nino Rosa verbalizes understanding and agrees with treatment plan and was encouraged to contact me with questions This note was generated with voice recognition software and may contain errors, including spelling, grammar, syntax and misrecognition of what was dictated, that are not fully corrected. INTERSTITIAL LUNG DISEASE DATABASE CHECKLIST Treating diagnosis: IPAF: Idiopathic pneumonia with autoimmune features Biopsy confirmed?: Yes: Date: Was the patient discussed at a multidisciplinary discussion?: No Current ILD medications: Azathioprine, Rituximab ILD medications at end of visit: Azathioprine, Rituximab Is the patient being treated with oxygen therapy?: No Does the patient have pulmonary hypertension: Uncertain Is the patient being referred for transplantation?: No CC: PCP: Jennyfer Denise DO, DO Medical Decision Making: Level: 4 - Moderate documented in this encounter [facility] 09-05-2021 History of Present illness Narrative PULM FUNCTION SMARTBLOCK: Provider: Gela Jordan APRN.CNP Spirometry: 1 DLCO: 1 Oximetry - Ambulation: 1 System: [id number] documented in this encounter [facility] 09-05-2021 History of Present illness Narrative Patient arrives ambulatory for receipt of COVID-19 Monoclonal Antibodies for pre-exposure prophylaxis. Patient is identified by name and date of Previous [facility] Administrations (last [id number] hours) None Patient is receiving initial dose (Evusheld (tixagevimab 300 mg/cilgevimab 300 mg IM x 1) SARS-CoV2 (COVID-19) Qualitative PCR (no units) Date Value 05/31/2021 Detected (A) Confirmed negative COVID test prior to injection: Yes Autopopulate last platelet count: Platelet Count Date Value Ref Range Status 06/12/2021 383 150 - 400 k/uL Final If platelets < 20 - do not administer: review with provider If platelets 20-50: apply pressure for 5 minutes after the IM injection If patients > 50: no limitations Patient confirms he received Medication information Fact Sheet and has reviewed prior to treatment. Denies any concerns regarding treatment today. See Doc flow sheet Ambulatory injection and MAR for further documentation Patient is declines AVS and will see information in My Chart. Patient denies any other questions or concerns prior to discharge. Patient is discharged home ambulatory. For any signs of acute allergic reaction: swelling of lips, tongue, mouth, nose, throat, face, any rash, hives, generalized itching, chest pain, palpitations, increased shortness of breath, wheezing, severe dizziness, feeling like you may pass out; Call Emergency medical services and go to the ED for further evaluation and treatment. Please contact the prescriber for your Evusheld if you experience a serious adverse reaction. Fact Sheet for Patients, Parents And Caregivers Emergency Use Authorization (EUA) of EVUSHELD (tixagevimab co-packaged with cilgavimab) for Coronavirus Disease 2019 (COVID-19) You are being given this Fact Sheet because your healthcare provider believes it is necessary to provide you with EVUSHELD (tixagevimab co-packaged with cilgavimab) for pre-exposure prophylaxis for prevention of coronavirus disease 2019 (COVID-19) caused by the SARS-CoV-2 virus. This Fact Sheet contains information to help you understand the potential risks and potential benefits of taking EVUSHELD, which you have received or may receive. The U.S. Food and Drug Administration (FDA) has issued an Emergency Use Authorization (EUA) to make EVUSHELD available during the COVID-19 pandemic (for more details about an EUA please see What is an Emergency Use Authorization? at the end of this document). EVUSHELD is not an FDA-approved medicine in the [place]. Read this Fact Sheet for information about EVUSHELD. Talk to your healthcare provider if you have any questions. It is your choice to receive or not receive EVUSHELD. What is COVID-19? COVID-19 is caused by a virus called a coronavirus. You can get COVID-19 through close contact with another person who has the virus. COVID-19 illnesses have ranged from very mild (including some with no reported symptoms) to severe, including illness resulting in . While information so far suggests that most COVID-19 illness is mild, serious illness can happen and may cause some of your other medical conditions to become worse. Older people and people of all ages with severe, long-lasting (chronic) medical conditions like heart disease, lung disease, and diabetes, for example, seem to be at higher risk of being hospitalized for COVID-19. What is EVUSHELD (tixagevimab co-packaged with cilgavimab)? EVUSHELD is an investigational medicine used in adults and adolescents (12 years of age and older who weigh at least 88 pounds [40 kg]) for pre-exposure prophylaxis for prevention of COVID-19 in persons who are: not currently infected with SARS-CoV-2 and who have not had recent known close contact with someone who is infected with SARS-CoV-2 and o Who have moderate to severe immune compromise due to a medical condition or have received immunosuppressive medicines or treatments and may not mount an adequate immune response to COVID-19 vaccination or o For whom vaccination with any available COVID-19 vaccine, according to the approved or authorized schedule, is not recommended due to a history of severe adverse reaction (such as severe allergic reaction) to a COVID-19 vaccine(s) or COVID-19 vaccine ingredient(s). EVUSHELD is investigational because it is still being studied. There is limited information known about the safety and effectiveness of using EVUSHELD for pre-exposure prophylaxis for prevention of COVID-19. EVUSHELD is not authorized for post-exposure prophylaxis for prevention of COVID-19. The FDA has authorized the emergency use of EVUSHELD for pre-exposure prophylaxis for prevention of COVID-19 under an Emergency Use Authorization (EUA). What should I tell my healthcare provider before I receive EVUSHELD? Tell your healthcare provider if you: Have any allergies Have low numbers of blood platelets (which help blood clotting), a bleeding disorder, or are taking anticoagulants (to prevent blood clots) Have had a heart attack or stroke, have other heart problems, or are at high-risk of cardiac (heart) events Are or plan to become Are a child Have any serious illness Are taking any medications (prescription, bdjz-nfa-jascmja, vitamins, or herbal products) How will I receive EVUSHELD? EVUSHELD consists of two investigational medicines, tixagevimab and cilgavimab. You will receive 1 dose of EVUSHELD, consisting of 2 separate injections (tixagevimab and cilgavimab). EVUSHELD will be given to you by your healthcare provider as 2 intramuscular injections, given one after the other. You may need to receive additional doses of EVUSHELD for ongoing protection. Viruses can change management time (mutate) and develop into a slightly different form of the virus, called a variant. The duration that EVUSHELD will protect you from infection may change with certain variants. The best timing for you to receive additional doses of EVUSHELD, if needed, is not known right now, because this depends on which SARS-CoV-2 variants will be present in the future. Talk to your healthcare provider about receiving additional doses of EVUSHELD for ongoing protection and for further instructions. You can keep up-to-date with the latest information by visiting [email or web address] or by scanning the QR code, below: Who should generally not take EVUSHELD? Do not take EVUSHELD if you have had a severe allergic reaction to EVUSHELD or any ingredient in EVUSHELD. What are the important possible side effects of EVUSHELD? Possible side effects of EVUSHELD are: Allergic reactions. Allergic reactions can happen during and after injection of EVUSHELD. Tell your healthcare provider right away if you get any of the following signs and symptoms of allergic reactions: fever, chills, nausea, headache, shortness of breath, low or high blood pressure, rapid or slow heart rate, chest discomfort or pain, weakness, confusion, feeling tired, wheezing, swelling of your lips, face, or throat, rash including hives, itching, muscle aches, dizziness and sweating. These reactions may be severe or life threatening. Cardiac (heart) events: Serious cardiac adverse events have happened, but were not common, in people who received EVUSHELD and also in people who did not receive EVUSHELD in the clinical trial studying pre-exposure prophylaxis for prevention of COVID-19. In people with risk factors for cardiac events (including a history of heart attack), more people who received EVUSHELD experienced serious cardiac events than people who did not receive EVUSHELD. It is not known if these events are related to EVUSHELD or underlying medical conditions. Contact your healthcare provider or get medical help right away if you get any symptoms of cardiac events, including pain, pressure, or discomfort in the chest, arms, neck, back, stomach or jaw, as well as shortness of breath, feeling tired or weak (fatigue), feeling sick (nausea), or swelling in your ankles or lower legs. The side effects of getting any medicine by intramuscular injection may include pain, bruising of the skin, soreness, swelling, and possible bleeding or infection at the injection site. These are not all the possible side effects of EVUSHELD. Not a lot of people have been given EVUSHELD. Serious and unexpected side effects may happen. EVUSHELD is still being studied so it is possible that all of the risks are not known at this time. It is possible that EVUSHELD may reduce your body s immune response to a COVID-19 vaccine. If you have received a COVID-19 vaccine, you should wait to receive EVUSHELD until at least 2 weeks after COVID-19 vaccination. What other prevention choices are there? Vaccines to prevent COVID-19 are approved or available under Emergency Use Authorization. Use of EVUSHELD does not replace vaccination against COVID-19. For more information about other medicines authorized for treatment or prevention of COVID-19 go to https://www.fda.gov/emergency-pre qkxeccfdb-wwh-udztutag/mcm-legal- adpmxomxjz-pte-qptdir-framework/e yxoxviim-lfs-bitcobgmgvwar. It is your choice to receive or not receive EVUSHELD. Should you decide not to receive EVUSHELD, it will not change your standard medical care. EVUSHELD is not authorized for post-exposure prophylaxis of COVID-19. What if I am or ? If you are or , discuss your options and specific situation with your healthcare provider. How do I report side effects with EVUSHELD? Contact your healthcare provider if you have any side effects that bother you or do not go away. Report side effects to FDA MedWatch at www.fda.gov/medwatch or call 9-054-HDV-1088 or call [employer] at . Additional Information If you have questions, visit the website or call the telephone number provided below. To access the most recent EVUSHELD Fact Sheets, please scan the QR code provided below. Website Telephone number [email or web address] How can I learn more about COVID-19? Ask your healthcare provider. Visit https://www.cdc.gov/COVID19 Contact your local or state public health department. What is an Emergency Use Authorization? The [place] FDA has made EVUSHELD (tixagevimab co-packaged with cilgavimab) available under an emergency access mechanism called an Emergency Use Authorization EUA. The EUA is supported by a Stone Polisher Machine of Health and Human Service (HHS) declaration that circumstances exist to justify the emergency use of drugs and biological products during the COVID-19 pandemic. EVUSHELD for pre-exposure prophylaxis for prevention of coronavirus disease 2019 (COVID-19) caused by the SARS-CoV-2 virus has not undergone the same type of review as an FDA-approved product. In issuing an EUA under the COVID-19 public health emergency, the FDA has determined, among other things, that based on the total amount of scientific evidence available including data from adequate and well-controlled clinical trials, if available, it is reasonable to believe that the product may be effective for diagnosing, treating, or preventing COVID-19, or a serious or life-threatening disease or condition caused by COVID-19; that the known and potential benefits of the product, when used to diagnose, treat, or prevent such disease or condition, outweigh the known and potential risks of such product; and that there are no adequate, approved and available alternatives. All of these criteria must be met to allow for the product to be used in the treatment of patients during the COVID-19 pandemic. The EUA for EVUSHELD is in effect for the duration of the COVID-19 declaration justifying emergency use of EVUSHELD, unless terminated or revoked (after which EVUSHELD may no longer be used under the EUA). Distributed by: [employer], [place], [place] Manufactured by: [employer], [address] [facility] manuelHometicapamela, [place], [place] [address], [place] [facility] [employer] 2020. All rights reserved. documented in this encounter [facility] 09-05-2021 Procedure note Associated Order(s): OXIMETRY WITH AMBULATION RESPIRATORY THERAPY OXIMETRY WITH AMBULATION Oximetry with Ambulation Test for This Encounter O2 Device O2 Adapter NC O2 Flow SpO2% HR Activity Ft Walked (ft) Time (min) Avg Speed (MPH) R/A 99 105 Resting R/A 95 135 Walking, usual pace 665 3 2.52 R/A 99 107 Resting R/A 92 159 Walking, fastest pace 830 3 3.14 General Information Pulse Oximetry Site Total Time Spent O2 Supply Carrier Walking Assistance/Device Forehead 30 None NAME: Aysha Nuñez RRT PATIENT NAME: Nino Rosa DATE: September 05, 2021 TIME: 9:53 AM Comment: documented in this encounter [facility] documented as of this encounter (statuses as of 09/05/2021) [facility] History of Past illness Narrative* Problem Noted Date Resolved Date 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 documented as of this encounter (statuses as of 09/05/2021) [facility] History of Past illness Narrative* Problem Noted Date Resolved Date 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 documented as of this encounter (statuses as of 09/05/2021) [facility] History of Past illness Narrative* Problem Noted Date Resolved Date 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 documented as of this encounter (statuses as of 09/05/2021) [address]17-2014 History of Past illness Narrative* Problem Noted Date Resolved Date 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 documented as of this encounter (statuses as of 09/26/2021) [facility] History of Past illness Narrative* Problem Noted Date Resolved Date 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 documented as of this encounter (statuses as of 10/08/2021) [facility] History of Past illness Narrative* Problem Noted Date Resolved Date 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 documented as of this encounter (statuses as of 10/22/2021) [facility] History of Past illness Narrative* Problem Noted Date Resolved Date 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 documented as of this encounter (statuses as of 10/22/2021) [facility] History of Past illness Narrative* Problem Noted Date Resolved Date 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 documented as of this encounter (statuses as of 10/30/2021) [facility] History of Past illness Narrative* Problem Noted Date Resolved Date 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 documented as of this encounter (statuses as of 11/07/2021) [facility] History of Past illness Narrative* Problem Noted Date Resolved Date 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 documented as of this encounter (statuses as of 11/15/2021) [place] [address]17-2014 History of Past illness Narrative* Problem Noted Date Resolved Date 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 documented as of this encounter (statuses as of 11/23/2021) [facility] History of Past illness Narrative* Problem Noted Date Resolved Date 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 documented as of this encounter (statuses as of 12/12/2021) [facility] History of Past illness Narrative* Problem Noted Date Resolved Date 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 documented as of this encounter (statuses as of 12/12/2021) [facility] History of Past illness Narrative* Problem Noted Date Resolved Date 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 documented as of this encounter (statuses as of 01/21/2022) [facility] History of Past illness Narrative* Problem Noted Date Resolved Date 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 documented as of this encounter (statuses as of 01/21/2022) [facility] History of Past illness Narrative* Problem Noted Date Resolved Date 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 documented as of this encounter (statuses as of 01/21/2022) [facility] History of Past illness Narrative* Problem Noted Date Resolved Date 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 documented as of this encounter (statuses as of 02/20/2022) [facility] History of Past illness Narrative* Problem Noted Date Resolved Date 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 documented as of this encounter (statuses as of 02/25/2022) [facility] History of Past illness Narrative* Problem Noted Date Resolved Date 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 documented as of this encounter (statuses as of 04/10/2022) [facility] History of Past illness Narrative* Problem Noted Date Resolved Date 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 documented as of this encounter (statuses as of 04/30/2022) [address]17-2014 History of Past illness Narrative* Problem Noted Date Resolved Date 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 documented as of this encounter (statuses as of 05/07/2022) [facility] History of Past illness Narrative* Problem Noted Date Resolved Date 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 documented as of this encounter (statuses as of 05/29/2022) [address]17-2014 History of Past illness Narrative* Problem Noted Date Resolved Date 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 documented as of this encounter (statuses as of 08/07/2022) [address]17-2014 History of Past illness Narrative* Problem Noted Date Resolved Date 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 documented as of this encounter (statuses as of 08/07/2022) [place] [address]17-2014 History of Past illness Narrative* Problem Noted Date Resolved Date 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 documented as of this encounter (statuses as of 08/08/2022) [address]17-2014 History of Past illness Narrative* Problem Noted Date Resolved Date 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 documented as of this encounter (statuses as of 08/08/2022) [address]17-2014 History of Past illness Narrative* Problem Noted Date Resolved Date 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 documented as of this encounter (statuses as of 08/12/2022) [address]17[address]2014 History of Past illness Narrative* Problem Noted Date Resolved Date 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 documented as of this encounter (statuses as of 08/15/2022) [address]17[address]2014 History of Past illness Narrative* Problem Noted Date Resolved Date 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 documented as of this encounter (statuses as of 08/16/2022) [facility] History of Past illness Narrative* Problem Noted Date Resolved Date 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 documented as of this encounter (statuses as of 08/21/2022) [facility] History of Past illness Narrative* Problem Noted Date Resolved Date 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 documented as of this encounter (statuses as of 08/22/2022) [facility] History of Past illness Narrative* Problem Noted Date Resolved Date 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 documented as of this encounter (statuses as of 08/22/2022) [facility] History of Past illness Narrative* Problem Noted Date Resolved Date 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 documented as of this encounter (statuses as of 08/22/2022) [facility] History of Past illness Narrative* Problem Noted Date Resolved Date 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 documented as of this encounter (statuses as of 08/28/2022) [place] [address]17-2014 History of Past illness Narrative* Problem Noted Date Resolved Date 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 documented as of this encounter (statuses as of 08/28/2022) [place] [address]17-2014 History of Past illness Narrative* Problem Noted Date Resolved Date 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 documented as of this encounter (statuses as of 09/19/2022) [facility] History of Past illness Narrative* Problem Noted Date Resolved Date 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 documented as of this encounter (statuses as of 10/04/2022) [facility] History of Past illness Narrative* Problem Noted Date Resolved Date 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 documented as of this encounter (statuses as of 12/03/2022) [facility] History of Past illness Narrative* Problem Noted Date Resolved Date 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 documented as of this encounter (statuses as of 12/04/2022) [facility] History of Past illness Narrative* Problem Noted Date Resolved Date 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 documented as of this encounter (statuses as of 12/04/2022) [facility] History of Past illness Narrative* Problem Noted Date Resolved Date 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 documented as of this encounter (statuses as of 12/13/2022) [facility] History of Past illness Narrative* Problem Noted Date Diagnosed Date Resolved Date Granulomatosis with polyangiitis (Sarwat's) 4 03/02/2014 documented as of this encounter (statuses as of 12/23/2022) [facility] History of Past illness Narrative* Problem Noted Date Diagnosed Date Resolved Date Granulomatosis with polyangiitis (Sarwat's) 4 03/02/2014 documented as of this encounter (statuses as of 02/26/2023) [facility] History of Past illness Narrative* Problem Noted Date Diagnosed Date Resolved Date Granulomatosis with polyangiitis (Sarwat's) 4 03/02/2014 documented as of this encounter (statuses as of 03/14/2023) [facility] History of Past illness Narrative* Problem Noted Date Diagnosed Date Resolved Date Granulomatosis with polyangiitis (Sarwat's) 4 03/02/2014 documented as of this encounter (statuses as of 04/14/2023) [facility] History of Past illness Narrative* Problem Noted Date Diagnosed Date Resolved Date Granulomatosis with polyangiitis (Sarwat's) 4 03/02/2014 documented as of this encounter (statuses as of 04/14/2023) [facility] History of Past illness Narrative* Problem Noted Date Diagnosed Date Resolved Date Granulomatosis with polyangiitis (Sarwat's) 4 03/02/2014 documented as of this encounter (statuses as of 04/24/2023) [facility] note* Diagnosis Suspected pulmonary hypertension Dyspnea and respiratory abnormalities Other dyspnea and respiratory abnormality [facility] [place] [facility]* Diagnosis ILD (interstitial lung disease) (HCC)- Primary Postinflammatory pulmonary fibrosis documented [facility] this [facility] [place] [facility]* Diagnosis ILD (interstitial lung disease) (HCC)- Primary Postinflammatory pulmonary fibrosis documented [facility] this encounter [facility] [place] [facility]* Diagnosis ILD (interstitial lung disease) (HCC)- Primary Postinflammatory pulmonary fibrosis documented [facility] this encounter [facility] [place] [facility]* Diagnosis ILD (interstitial lung disease) (HCC)- Primary Postinflammatory pulmonary fibrosis Encounter for prophylactic measures, unspecified [facility] [place] [facility] Diagnosis ILD (interstitial lung disease) (HCC)- Primary Postinflammatory pulmonary fibrosis COVID-19 Obesity, unspecified classification, unspecified obesity type, unspecified whether serious comorbidity present documented in this encounter [facility] [place] [facility]* Diagnosis ILD (interstitial lung disease) (HCC) Postinflammatory pulmonary fibrosis documented [facility] this encounter [facility] [place] [facility]* Diagnosis ILD (interstitial lung disease) (HCC) Postinflammatory pulmonary fibrosis [facility] [place] [facility] Diagnosis ILD (interstitial lung disease) (HCC) Postinflammatory pulmonary fibrosis documented [facility] [place] [facility]* Diagnosis Dyspnea and respiratory abnormalities- Primary Other dyspnea and respiratory abnormality ILD (interstitial lung disease) (HCC) 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 Acute respiratory failure with hypoxia (HCC) Acute respiratory failure High risk medication use Encounter for long-term (current) use of other [facility] Diagnosis Inflammatory polyarthritis (HCC)- Primary Unspecified inflammatory polyarthropathy ILD (interstitial lung disease) (HCC) Postinflammatory pulmonary fibrosis Other systemic lupus erythematosus with lung involvement (HCC) Other specified rheumatoid arthritis, unspecified site (HCC) [facility] Diagnosis Inflammatory polyarthritis (HCC)- Primary Unspecified inflammatory polyarthropathy ILD (interstitial lung disease) (HCC) Postinflammatory pulmonary fibrosis Other systemic lupus erythematosus with lung involvement (HCC) [facility] Diagnosis ILD (interstitial lung disease) (HCC)- Primary Postinflammatory pulmonary fibrosis Dyspnea and respiratory abnormalities Other dyspnea and respiratory abnormality [facility]* Diagnosis ILD (interstitial lung disease) (HCC)- Primary Postinflammatory pulmonary fibrosis [facility]* Diagnosis ILD (interstitial lung disease) (HCC)- Primary Postinflammatory pulmonary fibrosis [facility] Diagnosis Bilateral impacted cerumen- Primary Impacted cerumen [facility]* Diagnosis Diffuse connective tissue disease (HCC) Unspecified diffuse connective tissue disease ILD (interstitial lung disease) (HCC) Postinflammatory pulmonary fibrosis [facility] Diagnosis Other specified rheumatoid arthritis, unspecified site (HCC)- Primary Inflammatory polyarthritis (HCC) Unspecified inflammatory polyarthropathy ILD (interstitial lung disease) (HCC) Postinflammatory pulmonary fibrosis Other systemic lupus erythematosus with lung involvement (HCC) 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 [facility] Diagnosis ILD (interstitial lung disease) (HCC)- Primary Postinflammatory pulmonary fibrosis Diffuse connective tissue disease (HCC) Unspecified diffuse connective tissue disease Dyspnea and respiratory abnormalities Other dyspnea and respiratory abnormality [facility] Diagnosis Diffuse connective tissue disease (HCC) Unspecified diffuse connective tissue disease ILD (interstitial lung disease) (HCC) Postinflammatory pulmonary fibrosis [facility] Diagnosis Diffuse connective tissue disease (HCC) Unspecified diffuse connective tissue disease Dyspnea and respiratory abnormalities Other dyspnea and respiratory abnormality [facility] [place] [facility] Diagnosis ILD (interstitial lung disease) (HCC)- Primary Postinflammatory pulmonary fibrosis Diffuse connective tissue disease (HCC) Unspecified diffuse connective tissue disease documented [facility] [place] [facility]* Diagnosis ILD (interstitial lung disease) (HCC)- Primary Postinflammatory pulmonary fibrosis Diffuse connective tissue disease (HCC) Unspecified diffuse connective tissue disease documented [facility] [place] [facility]* Diagnosis Diffuse connective tissue disease (HCC) Unspecified diffuse connective tissue disease ILD (interstitial lung disease) (HCC) Postinflammatory pulmonary fibrosis [facility] [place] [facility] Diagnosis Malaise and fatigue Other malaise and fatigue [facility] [place] [facility] Diagnosis Diffuse connective tissue disease (HCC) Unspecified diffuse connective tissue disease ILD (interstitial lung disease) (HCC) Postinflammatory pulmonary fibrosis [facility] [place] [facility] Diagnosis Pulmonary hypertension (HCC)- Primary Other chronic pulmonary heart diseases documented [facility] [place] [facility]* Diagnosis Interstitial pulmonary disease (HCC) Postinflammatory pulmonary fibrosis [facility] [place] [facility] Diagnosis ILD (interstitial lung disease) (HCC)- Primary Postinflammatory pulmonary fibrosis DB (obstructive sleep apnea) Obstructive sleep apnea (adult) (pediatric) Inflammatory polyarthritis (HCC) Unspecified inflammatory polyarthropathy [facility] [place] [facility] Diagnosis Malaise and fatigue- Primary Other malaise and fatigue Interstitial pulmonary disease (HCC) Postinflammatory pulmonary fibrosis Dyspnea and respiratory abnormalities Other dyspnea and respiratory abnormality [facility] [place] [facility] Diagnosis Inflammatory arthritis- Primary Unspecified inflammatory polyarthropathy Inflammatory polyarthritis (HCC) Unspecified inflammatory polyarthropathy 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 [facility] [place] [facility] Diagnosis Diffuse connective tissue disease (HCC) Unspecified diffuse connective tissue disease ILD (interstitial lung disease) (HCC) Postinflammatory pulmonary fibrosis [facility] [place] [facility] Diagnosis ILD (interstitial lung disease) (HCC)- Primary Postinflammatory pulmonary fibrosis [facility] [place] [facility] Diagnosis ILD (interstitial lung disease) (HCC)- Primary Postinflammatory pulmonary fibrosis documented in this encounter [facility] note* Diagnosis ILD (interstitial lung disease) (HCC)- Primary Postinflammatory pulmonary fibrosis documented in this encounter [facility] note* Diagnosis ILD (interstitial lung disease) (HCC)- Primary Postinflammatory pulmonary fibrosis documented in this encounter [facility] note* Diagnosis High risk medication use- Primary Encounter for long-term (current) use of other medications Inflammatory polyarthritis (HCC) Unspecified inflammatory polyarthropathy 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 Diffuse connective tissue disease (HCC) Unspecified diffuse connective tissue disease ILD (interstitial lung disease) (HCC) Postinflammatory pulmonary fibrosis documented in this encounter [facility] note* Diagnosis 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 Rheumatoid lung ILD (interstitial lung disease) (HCC) Postinflammatory pulmonary fibrosis documented in this encounter [facility] note* Diagnosis ILD (interstitial lung disease) (HCC) Postinflammatory pulmonary fibrosis documented in this encounter [facility] note* Diagnosis Laceration of left ring finger without foreign body without damage to nail, initial encounter- Primary Laceration of left little finger without foreign body without damage to nail, initial encounter documented in this encounter [facility] note* Diagnosis Nasal congestion with rhinorrhea- Primary Other diseases of nasal cavity and sinuses History of COVID-19 Chronic cough Cough ILD (interstitial lung disease) (HCC) Postinflammatory pulmonary fibrosis documented in this encounter [facility] note* Diagnosis ILD (interstitial lung disease) (HCC) Postinflammatory pulmonary fibrosis documented in this encounter [facility] note* Diagnosis Inflammatory polyarthritis (HCC) Unspecified inflammatory polyarthropathy ILD (interstitial lung disease) (HCC) Postinflammatory pulmonary fibrosis documented in this encounter [facility] note* Diagnosis 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 * Laceration Repair With Stitches ED (Kyrgyz) documented in this [facility] for referral (narrative)* Outpatient Procedure (Routine) - Authorized Specialty Diagnoses / Procedures Referred By Medina cifuentes [facility] Diagnoses Dyspnea and respiratory abnormalities Procedures SIX MINUTE WALK CARDIOPULMONARY EXERCISE STRESS Jose Walter MD [phone] [place] [address] Referral ID Status Reason Start Date Expiration Date Visits Requested Visits Authorized [id number] Authorized Auto-Generat ed Referral 01/22/2022 11/21/2022 1 1 * Outpatient Procedure (Routine) - Authorized Specialty Diagnoses / Procedures Referred By Medina cifuentes [facility] Diagnoses Dyspnea and respiratory abnormalities Procedures LUNG DIFFUSION CAPACITY (DLCO) DIFFUSING CAPACITY Jose Walter MD [phone] [address] [address] Referral ID Status Reason Start Date Expiration Date Visits Requested Visits Authorized [id number] Authorized Auto-Generat ed Referral 01/22/2022 11/21/2022 1 1 * Outpatient Procedure (Routine) - Authorized Specialty Diagnoses / Procedures Referred By Medina cifuentes Referred To [facility] Diagnoses Dyspnea and respiratory abnormalities Procedures SPIROMETRY WITH DILATOR IF OBSTRUCTED BRNCDILAT RSPSE SPMTRY PRE&POST-BRNCDILAT ADMN Jose Walter MD [address] [place] [address] [place] [address] Referral ID Status Reason Start Date Expiration Date Visits Requested Visits Authorized [id number] Authorized Auto-Generat ed Referral 01/22/2022 11/21/2022 1 1 [facility] for referral (narrative)* Outpatient Procedure (Routine) - Pending Review Specialty Diagnoses / Procedures Referred By Contac t Referred To [facility] [place] Diagnoses ILD (interstitial lung disease) ([facility]) Procedures SIX MINUTE WALK CARDIOPULMONARY EXERCISE STRESS Jose Walter MD [address] [place] [address] [address] Referral ID Status Reason Start Date Expiration Date Visits Requested Visits Authorized [id number] Pending Review Auto-Generat ed Referral 01/21/2022 02/20/2023 1 1 * Outpatient Procedure (Routine) - Pending Review Specialty Diagnoses / Procedures Referred By Boubacarac t Referred To [facility] [place] Diagnoses ILD (interstitial lung disease) ([facility]) Procedures LUNG DIFFUSION CAPACITY (DLCO) DIFFUSING CAPACITY Jose Walter MD [address] [place] [address] [address] Referral ID Status Reason Start Date Expiration Date Visits Requested Visits Authorized [id number] Pending Review Auto-Generat ed Referral 01/21/2022 02/20/2023 1 1 * Outpatient Procedure (Routine) - Pending Review Specialty Diagnoses / Procedures Referred By Contac t Referred To [facility] [place] Diagnoses ILD (interstitial lung disease) ([facility]) Procedures SPIROMETRY WITH DILATOR IF OBSTRUCTED BRNCDILAT RSPSE SPMTRY PRE&POST-BRNCDILAT ADMN Jose Walter MD [address] [place] [address] [address] Referral ID Status Reason Start Date Expiration Date Visits Requested Visits Authorized [id number] Pending Review Auto-Generat ed Referral 01/21/2022 02/20/2023 1 1 * Outpatient Procedure (Routine) - Pending Review Specialty Diagnoses / Procedures Referred By Contac t Referred To [facility] Diagnoses ILD (interstitial lung disease) (HCC) Procedures LUNG DIFFUSION CAPACITY (DLCO) DIFFUSING CAPACITY Jose Walter MD [address] [phone] Respiratory [place] [address] [place] [address] Referral ID Status Reason Start Date Expiration Date Visits Requested Visits Authorized [id number] Pending Review Auto-Generat ed Referral 01/21/2022 02/20/2023 1 1 * Outpatient Procedure (Routine) - Closed Specialty Diagnoses / Procedures Referred By Medina t Referred To [facility] Diagnoses ILD (interstitial lung disease) (HCC) Procedures SPIROMETRY WITH DILATOR IF OBSTRUCTED BRNCDILAT RSPSE SPMTRY PRE&POST-BRNCDILAT ADMN Jose Walter MD [address] [facility] [place] [address] Respiratory [place] [address] [place] [address] Referral ID Status Reason Start Date Expiration Date V isits Requested Visits Authorized [id number] Closed Auto-Generate d Referral 01/21/2022 02/20/2023 1 1 [facility] for referral (narrative)* Outpatient Procedure (Routine) - Pending Review Specialty Diagnoses / Procedures Referred By Contac t [facility] Diagnoses Diffuse connective tissue disease (HCC) Dyspnea and respiratory abnormalities Procedures ECHO ECHO TTHRC R-T 2D W/WOM-MODE COMPL SPEC&COLR D Gela Jordan, INVENTORY TAKER.DIRECTOR HOME [address] [facility] [address] [address] [facility] [place] [address] Referral ID Status Reason Start Date Expiration Date Visits Requested Visits Authorized [id number] Pending Review Auto-Generat ed Referral 2 05/07/2023 1 1 * Outpatient Procedure (Routine) - Pending Review Specialty Diagnoses / Procedures Referred By Medina t Referred To [facility] Diagnoses Diffuse connective tissue disease (HCC) ILD (interstitial lung disease) (HCC) Procedures LUNG DIFFUSION CAPACITY (DLCO) DIFFUSING CAPACITY Gela Jordan APRN.CNP [address] [place] [address] [place] [address] Referral ID Status Reason Start Date Expiration Date Visits Requested Visits Authorized [id number] Pending Review Auto-Generat ed Referral 2 06/06/2023 1 1 * Outpatient Procedure (Routine) - Pending Review Specialty Diagnoses / Procedures Referred By Medina t Referred To [facility] Diagnoses Diffuse connective tissue disease (HCC) ILD (interstitial lung disease) (HCC) Procedures SIX MINUTE WALK CARDIOPULMONARY EXERCISE STRESS Gela Jordan APRN.CNP [id number] [place] [address] Referral ID Status Reason Start Date Expiration Date Visits Requested Visits Authorized [id number] Pending Review Auto-Generat ed Referral 2 06/06/2023 1 1 * Outpatient Procedure (Routine) - Pending Review Specialty Diagnoses / Procedures [facility] Diagnoses Diffuse connective tissue disease (HCC) ILD (interstitial lung disease) (HCC) Procedures SPIROMETRY WITH DILATOR IF OBSTRUCTED BRNCDILAT RSPSE SPMTRY PRE&POST-BRNCDILAT ADMN Gela Jordan APRN.CNP [id number] [facility] [place] [address] [place] [id number] Referral ID Status Reason Start Date Expiration Date Visits Requested Visits Authorized [id number] Pending Review Auto-Generat ed Referral 2 06/06/2023 1 1 [facility] for referral (narrative)* Diagnostic Procedure Only (Routine) - Closed Specialty Diagnoses / Procedures Referred By Contac t Referred To Contact XR IMAGING Diagnoses Malaise and fatigue Procedures XR KNEE GENERAL 4V AP BOTH/PA BOTH/LAT/MERC BILATERAL RADIOLOGIC EXAM KNEE COMPLETE 4/[place] [address] [place] [address] Xr Imaging Referral ID Status Reason Start Date Expiration Date V isits Requested Visits Authorized [id number] Closed Auto-Generate d Referral 08/07/2022 09/06/2023 1 1 [facility] for referral (narrative)* Outpatient Procedure (Routine) - Pending Review Specialty Diagnoses / Procedures Referred By Contac t Referred To Contact [facility] Diagnoses ILD (interstitial lung disease) (HCC) Procedures LUNG DIFFUSION CAPACITY (DLCO) DIFFUSING CAPACITY Jose Walter MD [address] [place] [address] [facility] [place] [address] [place] [address] Referral ID Status Reason Start Date Expiration Date Visits Requested Visits Authorized [id number] Pending Review Auto-Generat ed Referral 08/28/2022 09/27/2023 1 1 * Outpatient Procedure (Routine) - Pending Review Specialty Diagnoses / Procedures Referred By Contac t Referred To Contact [facility] Diagnoses ILD (interstitial lung disease) (HCC) Procedures SPIROMETRY WITH DILATOR IF OBSTRUCTED BRNCDILAT RSPSE SPMTRY PRE&[place] [address] [place], [place] [id number] [address] [address] Referral ID Status Reason Start Date Expiration Date Visits Requested Visits Authorized [id number] Pending Review Auto-Generat ed Referral 08/28/2022 09/27/2023 1 1 * Outpatient Procedure (Routine) - Pending Review Specialty Diagnoses / Procedures Referred By Contac t Referred To [facility] Diagnoses ILD (interstitial lung disease) (HCC) Procedures SIX MINUTE WALK CARDIOPULMONARY [place] [address] [place] [address] [address] Referral ID Status Reason Start Date Expiration Date Visits Requested Visits Authorized [id number] Pending Review Auto-Generat ed Referral 08/28/2022 09/27/2023 1 1 [facility] for referral (narrative)* Outpatient Procedure (Routine) - Authorized Specialty Diagnoses / Procedures Referred By Contac t Referred To [facility] Diagnoses Inflammatory polyarthritis (HCC) ILD (interstitial lung disease) (HCC) Procedures SIX MINUTE WALK CARDIOPULMONARY EXERCISE STRESS Jose Walter MD [address] [place] [address] [address] Referral ID Status Reason Start Date Expiration Date Visits Requested Visits Authorized [id number] Authorized Auto-Generat ed Referral 12/03/2022 01/02/2024 1 1 * Outpatient Procedure (Routine) - Authorized Specialty Diagnoses / Procedures Referred By Contac t Referred To [facility] Diagnoses Inflammatory polyarthritis (HCC) ILD (interstitial lung disease) (HCC) Procedures LUNG DIFFUSION CAPACITY (DLCO) DIFFUSING CAPACITY Jose Walter MD [address] [place] [address] [address] Referral ID Status Reason Start Date Expiration Date Visits Requested Visits Authorized [id number] Authorized Auto-Generat ed Referral 12/03/2022 01/02/2024 1 1 * Outpatient Procedure (Routine) - Authorized Specialty Diagnoses / Procedures Referred By Contac t Referred To Contact [facility] Diagnoses Inflammatory polyarthritis (HCC) ILD (interstitial lung disease) (HCC) Procedures SPIROMETRY WITH DILATOR IF OBSTRUCTED BRNCDILAT RSPSE SPMTRY PRE&POST-BRNCDILAT ADMN Jose Walter MD [address] [place] [address] [address] Referral ID Status Reason Start Date Expiration Date Visits Requested Visits Authorized [id number] Authorized Auto-Generat ed Referral 12/03/2022 01/02/2024 1 1 * Medication Prior Authorization - Pending Review Specialty Diagnoses / Procedures Referred By Contac [place] [address] [place] [address] Referral ID Status Reason Start Date Expiration Date V isits Requested Visits Authorized [id number] Pending Review 1 1 [facility] for referral (narrative)* Outpatient Procedure (Routine) - Authorized Specialty Diagnoses / Procedures Referred By Contac t Referred To [facility] Diagnoses Interstitial lung disease (HCC) Procedures LUNG DIFFUSION CAPACITY (DLCO) [place] [address] [place] [id number] [address] Referral ID Status Reason Start Date Expiration Date Visits Requested Visits Authorized [id number] Authorized Auto-Generat ed Referral 3 05/13/2024 1 1 * Outpatient Procedure (Routine) - Authorized Specialty Diagnoses / Procedures Referred By Contac t Referred To Contact [facility] Diagnoses Interstitial lung disease (HCC) Procedures SIX MINUTE WALK CARDIOPULMONARY EXERCISE STRESS Jose Walter MD [id number] [place] [address] Referral ID Status Reason Start Date Expiration Date Visits Requested Visits Authorized [id number] Authorized Auto-Generat ed Referral 3 05/13/2024 1 1 * Outpatient Procedure (Routine) - Authorized Specialty Diagnoses / Procedures Referred By Contac t Referred To Contact [facility] Diagnoses Interstitial lung disease (HCC) Procedures SPIROMETRY WITH DILATOR IF OBSTRUCTED BRNCDILAT RSPSE SPMTRY PRE&POST-BRNCDILAT ADMN Jose Walter MD [address] [place] [address] [place] [address] Referral ID Status Reason Start Date Expiration Date Visits Requested Visits Authorized [id number] Authorized Auto-Generat ed Referral 3 05/13/2024 1 1 [facility] for visit Narrative* Outpatient Procedure (Routine) - Closed Specialty Diagnoses / Procedures Referred By Contac t Referred To Contact [facility] Diagnoses Suspected pulmonary hypertension Dyspnea and respiratory abnormalities Procedures ECHO ECHO TTHRC R-T 2D W/WOM-MODE COMPL SPEC&COLR D Gela Jordan, INVENTORY TAKER.DIRECTOR HOME [id number] [place] [address] Referral ID Status Reason Start Date Expiration Date V isits Requested Visits Authorized [id number] Closed Auto-Generate d Referral 07/30/2021 07/30/2022 1 1 [facility] Medications Administered Section Inactive Administered Medications - up to 3 most recent administrations Medication Order MAR Action Action Date Dose Rate Site perflutren lipid microspheres 1.3 mL in NaCl (PF) 0.9% 10 mL injection (DEFINITY) INTRAVENOUS, DIRECTED NEEDED, 1 dose, Starting on 07/30/21 at 1618, Until Fri09/05/21 at 0853, Per Protocol - for use during ECHO procedure only, If no IV access, insert saline lock prior to administering contrast. Discontinue saline lock post exam. If patient has central line or IVAD, may access for administration according to line specific nursing protocol. Once exam is complete, flush line and de-access per line specific nursing protocol.Dilute 1.3 ml of Definity with 8.7 ml of preservative-free saline. Given 09/05/2021 8:53 AM EDT 1.3 mL Inactive Administered Medications - up to 3 most recent administrations Medication Order MAR Action Action Date Dose Rate Site cilgavimab 300 mg intramuscular injection (EVUSHELD) 300 mg, INTRAMUSCULAR, ONCE (UP TO 30 DAYS AMB), 1 dose, On Fri09/05/21 at 1000, Administer tixagevimab and cilgavimab as separate IM injections - preferably one in each of the gluteal muscles, one after the other. Refrigerate - Protect from Light, Prior to the patient receiving tixagevimab and cilgavimab, patient has been given the Fact Sheet for Patients and Parents/Caregivers. Yes, Prior to the patient receiving tixagevimab and cilgavimab, patient has been informed that tixagevimab and cilgavimab is an unapproved drug that is authorized for use under EUA. Yes, AMB MED ORDERS Given 09/05/2021 10:12 AM EDT 300 mg Buttocks, Left tixagevimab 300 mg intramuscular injection (EVUSHELD) 300 mg, INTRAMUSCULAR, ONCE (UP TO 30 DAYS AMB), 1 dose, On Fri09/05/21 at 1000, Administer tixagevimab and cilgavimab as separate IM injections - preferably one in each of the gluteal muscles, one after the other. Refrigerate - Protect from Light, AMB MED ORDERS Given 09/05/2021 10:12 AM EDT 300 mg Buttocks, Right Inactive Administered Medications - up to 3 most recent administrations Medication Order MAR Action Action Date Dose Rate Site acetaminophen 650 mg tab(s) (TYLENOL) 650 mg, ORAL, ONCE, 1 dose, On Fri11/23/21 at 1100, No more than 4000 mg of acetaminophen should be given per day (FROM ALL SOURCES), If ordered PRN for pain, patient/guardian may elect to receive this medication for higher pain levels INSTEAD of the opioid, if preferred: N/A Given 11/23/2021 10:50 AM EDT 650 mg diphenhydrAMINE 50 mg injection (BENADRYL) 50 mg, INTRAVENOUS, ONCE, 1 dose, On Fri11/23/21 at 1100 Given 11/23/2021 11:05 AM EDT 50 mg methylPREDNISolone sod succinate(PF) 100 mg injection (SOLU-Medrol) 100 mg, INTRAVENOUS, ONCE, 1 dose, On Fri11/23/21 at 1100 Given 11/23/2021 11:00 AM EDT 100 mg riTUXimab-pvvr 1,000 mg in NaCl 0.9% 640 mL (RUXIENCE) 1,000 mg, INTRAVENOUS, ONCE, 1 dose, On Fri11/23/21 at 1100, Approx Total Volume: 640 mL EXP: See attached infusion instructions. Refrigerate. Rate/Dose Change 11/23/2021 3:10 PM EDT 256 mL/hr Inactive Administered Medications - up to 3 most recent administrations Medication Order MAR Action Action Date Dose Rate Site acetaminophen 650 mg tab(s) (TYLENOL) 650 mg, ORAL, ONCE, 1 dose, On Fri12/12/21 at 0730, No more than 4000 mg of acetaminophen should be given per day (FROM ALL SOURCES), If ordered PRN for pain, patient/guardian may elect to receive this medication for higher pain levels INSTEAD of the opioid, if preferred: N/A Given 12/12/2021 7:47 AM EDT 650 mg diphenhydrAMINE 50 mg injection (BENADRYL) 50 mg, INTRAVENOUS, ONCE, 1 dose, On Fri12/12/21 at 0730 Given 12/12/2021 7:56 AM EDT 50 mg methylPREDNISolone sod succinate(PF) 100 mg injection (SOLU-Medrol) 100 mg, INTRAVENOUS, ONCE, 1 dose, On Fri12/12/21 at 0730 Given 12/12/2021 7:53 AM EDT 100 mg riTUXimab-pvvr 1,000 mg in NaCl 0.9% 540 mL (RUXIENCE) 1,000 mg, INTRAVENOUS, ONCE, 1 dose, On Fri12/12/21 at 0730, Approx Total Volume: 640 mL EXP: See attached infusion instructions. Refrigerate. Rate Verify 12/12/2021 12:09 PM EDT 256 mL/hr Inactive Administered Medications - up to 3 most recent administrations Medication Order MAR Action Action Date Dose Rate Site acetaminophen 650 mg tab(s) (TYLENOL) 650 mg, ORAL, ONCE, 1 dose, On Fri04/10/22 at 0830, No more than 4000 mg of acetaminophen should be given per day (FROM ALL SOURCES), If ordered PRN for pain, patient/guardian may elect to receive this medication for higher pain levels INSTEAD of the opioid, if preferred: N/A Given 04/10/2022 8:24 AM EDT 650 mg diphenhydrAMINE 50 mg injection (BENADRYL) 50 mg, INTRAVENOUS, ONCE, 1 dose, On Fri04/10/22 at 0830 Given 04/10/2022 8:30 AM EDT 50 mg methylPREDNISolone sod succinate(PF) 100 mg injection (SOLU-Medrol) 100 mg, INTRAVENOUS, ONCE, 1 dose, On Fri04/10/22 at 0830 Given 04/10/2022 8:25 AM EDT 100 mg riTUXimab-pvvr 1,000 mg in NaCl 0.9% 640 mL (RUXIENCE) 1,000 mg, INTRAVENOUS, ONCE, 1 dose, On Fri04/10/22 at 0830, EXP: See attached infusion instructions. Refrigerate. Rate/Dose Change 04/10/2022 12:45 PM EDT 256 mL/hr Inactive Administered Medications - up to 3 most recent administrations Medication Order MAR Action Action Date Dose Rate Site perflutren lipid microspheres 1.3 mL in NaCl (PF) 0.9% 10 mL injection (DEFINITY) INTRAVENOUS, DIRECTED NEEDED, 1 dose, Starting on Tu05/07/22 at 1313, Until 08/07/22 at 1129, Per Protocol - for use during ECHO procedure only, If no IV access, insert saline lock prior to administering contrast. Discontinue saline lock post exam. If patient has central line or IVAD, may access for administration according to line specific nursing protocol. Once exam is complete, flush line and de-access per line specific nursing protocol.Dilute 1.3 ml of Definity with 8.7 ml of preservative-free saline. 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 Advance Directive(s) 06/10/2021 12:42 PM Advance Directive(s) 09/09/2020 8:57 AM Advance Directive(s) 02/02/2019 9:33 AM Advance Directive(s) 10/13/2018 10:50 AM Advance Directive(s) 03/26/2018 10:01 AM Advance Directive(s) 01/27/2017 9:42 AM Documents on File Type Date 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 Advance Directive(s) 06/10/2021 12:42 PM Advance Directive(s) 09/09/2020 8:57 AM Advance Directive(s) 02/02/2019 9:33 AM Advance Directive(s) 10/13/2018 10:50 AM Advance Directive(s) 03/26/2018 10:01 AM Advance Directive(s) 01/27/2017 9:42 AM Reason for Referral Specialty Diagnoses / Procedures Referred By Contac t Referred To Contact CT IMAGING Diagnoses Interstitial pulmonary disease (HCC) Procedures CT CHEST WO IVCON DIAGNOSTIC COMPUTED TOMOGRAPHY THORAX W/O CNTRST Jose Walter MD [address] [place] [address] Ct Imaging Referral ID Status Reason Start Date Expiration Date V isits Requested Visits Authorized [id number] Closed Auto-Generate d Referral 08/12/2022 09/26/2022 1 1 Specialty Diagnoses / Procedures Referred By Contac t Referred To Contact XR IMAGING Diagnoses Malaise and fatigue Procedures XR KNEE GENERAL 4V AP BOTH/PA BOTH/LAT/MERC BILATERAL RADIOLOGIC EXAM KNEE COMPLETE 4/MORE VIEWS Jose Walter MD [address] [place] [address] Xr Imaging Referral ID Status Reason Start Date Expiration Date V isits Requested Visits Authorized [id number] Closed Auto-Generate d Referral 08/07/2022 09/06/2023 1 1 Summary Purpose Family History No Family History Records FoundNo Family History Records FoundNo Family History Records Found Additional Source Comments Source Comments (unrecognize d section and content) In the event this informatio n is protected by the Federal Confidentiality of Alcohol and Drug Abuse Patient Records regulations: The Federal rules restrict any use of the information to criminally investigate or prosecute any alcohol or drug abuse patient.[facility] the event this information is protected by the Federal Confidentiality of Alcohol and Drug Abuse Patient Records regulations: The Federal rules restrict any use of the information to criminally investigate or prosecute any alcohol or drug abuse patient.[facility] the event this information is protected by the Federal Confidentiality of Alcohol and Drug Abuse Patient Records regulations: The Federal rules restrict any use of the information to criminally investigate or prosecute any alcohol or drug abuse patient.[facility] the event this information is protected by the Federal Confidentiality of Alcohol and Drug Abuse Patient Records regulations: The Federal rules restrict any use of the information to criminally investigate or prosecute any alcohol or drug abuse patient.[facility] the event this information is protected by the Federal Confidentiality of Alcohol and Drug Abuse Patient Records regulations: The Federal rules restrict any use of the information to criminally investigate or prosecute any alcohol or drug abuse patient.[facility] the event this information is protected by the Federal Confidentiality of Alcohol and Drug Abuse Patient Records regulations: The Federal rules restrict any use of the information to criminally investigate or prosecute any alcohol or drug abuse patient.[facility] the event this information is protected by the Federal Confidentiality of Alcohol and Drug Abuse Patient Records regulations: The Federal rules restrict any use of the information to criminally investigate or prosecute any alcohol or drug abuse patient.[facility] the event this information is protected by the Federal Confidentiality of Alcohol and Drug Abuse Patient Records regulations: The Federal rules restrict any use of the information to criminally investigate or prosecute any alcohol or drug abuse patient.[facility] the event this information is protected by the Federal Confidentiality of Alcohol and Drug Abuse Patient Records regulations: The Federal rules restrict any use of the information to criminally investigate or prosecute any alcohol or drug abuse patient.[facility] the event this information is protected by the Federal Confidentiality of Alcohol and Drug Abuse Patient Records regulations: The Federal rules restrict any use of the information to criminally investigate or prosecute any alcohol or drug abuse patient.[facility] the event this information is protected by the Federal Confidentiality of Alcohol and Drug Abuse Patient Records regulations: The Federal rules restrict any use of the information to criminally investigate or prosecute any alcohol or drug abuse patient.[facility] the event this information is protected by the Federal Confidentiality of Alcohol and Drug Abuse Patient Records regulations: The Federal rules restrict any use of the information to criminally investigate or prosecute any alcohol or drug abuse patient.[facility] the event this information is protected by the Federal Confidentiality of Alcohol and Drug Abuse Patient Records regulations: The Federal rules restrict any use of the information to criminally investigate or prosecute any alcohol or drug abuse patient.[facility] the event this information is protected by the Federal Confidentiality of Alcohol and Drug Abuse Patient Records regulations: The Federal rules restrict any use of the information to criminally investigate or prosecute any alcohol or drug abuse patient.[facility] the event this information is protected by the Federal Confidentiality of Alcohol and Drug Abuse Patient Records regulations: The Federal rules restrict any use of the information to criminally investigate or prosecute any alcohol or drug abuse patient.[facility] the event this information is protected by the Federal Confidentiality of Alcohol and Drug Abuse Patient Records regulations: The Federal rules restrict any use of the information to criminally investigate or prosecute any alcohol or drug abuse patient.[facility] the event this information is protected by the Federal Confidentiality of Alcohol and Drug Abuse Patient Records regulations: The Federal rules restrict any use of the information to criminally investigate or prosecute any alcohol or drug abuse patient.[facility] the event this information is protected by the Federal Confidentiality of Alcohol and Drug Abuse Patient Records regulations: The Federal rules restrict any use of the information to criminally investigate or prosecute any alcohol or drug abuse patient.[facility] the event this information is protected by the Federal Confidentiality of Alcohol and Drug Abuse Patient Records regulations: The Federal rules restrict any use of the information to criminally investigate or prosecute any alcohol or drug abuse patient.[facility] Hospital[facility] the event this information is protected by the Federal Confidentiality of Alcohol and Drug Abuse Patient Records regulations: The Federal rules restrict any use of the information to criminally investigate or prosecute any alcohol or drug abuse patient.[facility] Hospital[facility] the event this information is protected by the Federal Confidentiality of Alcohol and Drug Abuse Patient Records regulations: The Federal rules restrict any use of the information to criminally investigate or prosecute any alcohol or drug abuse patient.[facility] Hospital[facility] the event this information is protected by the Federal Confidentiality of Alcohol and Drug Abuse Patient Records regulations: The Federal rules restrict any use of the information to criminally investigate or prosecute any alcohol or drug abuse patient.[facility] Hospital[facility] the event this information is protected by the Federal Confidentiality of Alcohol and Drug Abuse Patient Records regulations: The Federal rules restrict any use of the information to criminally investigate or prosecute any alcohol or drug abuse patient.[facility] the event this information is protected by the Federal Confidentiality of Alcohol and Drug Abuse Patient Records regulations: The Federal rules restrict any use of the information to criminally investigate or prosecute any alcohol or drug abuse patient.[facility] the event this information is protected by the Federal Confidentiality of Alcohol and Drug Abuse Patient Records regulations: The Federal rules restrict any use of the information to criminally investigate or prosecute any alcohol or drug abuse patient.[facility] Hospital[facility] the event this information is protected by the Federal Confidentiality of Alcohol and Drug Abuse Patient Records regulations: The Federal rules restrict any use of the information to criminally investigate or prosecute any alcohol or drug abuse patient.[facility] Hospital[facility] the event this information is protected by the Federal Confidentiality of Alcohol and Drug Abuse Patient Records regulations: The Federal rules restrict any use of the information to criminally investigate or prosecute any alcohol or drug abuse patient.[facility] Hospital[facility] the event this information is protected by the Federal Confidentiality of Alcohol and Drug Abuse Patient Records regulations: The Federal rules restrict any use of the information to criminally investigate or prosecute any alcohol or drug abuse patient.[facility] HospitalIn the event this information is protected by the Federal Confidentiality of Alcohol and Drug Abuse Patient Records regulations: The Federal rules restrict any use of the information to criminally investigate or prosecute any alcohol or drug abuse patient.[facility] HospitalIn the event this information is protected by the Federal Confidentiality of Alcohol and Drug Abuse Patient Records regulations: The Federal rules restrict any use of the information to criminally investigate or prosecute any alcohol or drug abuse patient.[facility] HospitalIn the event this information is protected by the Federal Confidentiality of Alcohol and Drug Abuse Patient Records regulations: The Federal rules restrict any use of the information to criminally investigate or prosecute any alcohol or drug abuse patient.[facility] HospitalIn the event this information is protected by the Federal Confidentiality of Alcohol and Drug Abuse Patient Records regulations: The Federal rules restrict any use of the information to criminally investigate or prosecute any alcohol or drug abuse patient.[facility] HospitalIn the event this information is protected by the Federal Confidentiality of Alcohol and Drug Abuse Patient Records regulations: The Federal rules restrict any use of the information to criminally investigate or prosecute any alcohol or drug abuse patient.[facility] HospitalIn the event this information is protected by the Federal Confidentiality of Alcohol and Drug Abuse Patient Records regulations: The Federal rules restrict any use of the information to criminally investigate or prosecute any alcohol or drug abuse patient.[facility] HospitalIn the event this information is protected by the Federal Confidentiality of Alcohol and Drug Abuse Patient Records regulations: The Federal rules restrict any use of the information to criminally investigate or prosecute any alcohol or drug abuse patient.[facility] HospitalIn the event this information is protected by the Federal Confidentiality of Alcohol and Drug Abuse Patient Records regulations: The Federal rules restrict any use of the information to criminally investigate or prosecute any alcohol or drug abuse patient.[facility] HospitalIn the event this information is protected by the Federal Confidentiality of Alcohol and Drug Abuse Patient Records regulations: The Federal rules restrict any use of the information to criminally investigate or prosecute any alcohol or drug abuse patient.[facility] HospitalIn the event this information is protected by the Federal Confidentiality of Alcohol and Drug Abuse Patient Records regulations: The Federal rules restrict any use of the information to criminally investigate or prosecute any alcohol or drug abuse patient.[facility] HospitalIn the event this information is protected by the Federal Confidentiality of Alcohol and Drug Abuse Patient Records regulations: The Federal rules restrict any use of the information to criminally investigate or prosecute any alcohol or drug abuse patient.[facility] HospitalIn the event this information is protected by the Federal Confidentiality of Alcohol and Drug Abuse Patient Records regulations: The Federal rules restrict any use of the information to criminally investigate or prosecute any alcohol or drug abuse patient.[facility] HospitalIn the event this information is protected by the Federal Confidentiality of Alcohol and Drug Abuse Patient Records regulations: The Federal rules restrict any use of the information to criminally investigate or prosecute any alcohol or drug abuse patient.[facility] HospitalIn the event this information is protected by the Federal Confidentiality of Alcohol and Drug Abuse Patient Records regulations: The Federal rules restrict any use of the information to criminally investigate or prosecute any alcohol or drug abuse patient.[facility] HospitalIn the event this information is protected by the Federal Confidentiality of Alcohol and Drug Abuse Patient Records regulations: The Federal rules restrict any use of the information to criminally investigate or prosecute any alcohol or drug abuse patient.[facility] HospitalIn the event this information is protected by the Federal Confidentiality of Alcohol and Drug Abuse Patient Records regulations: The Federal rules restrict any use of the information to criminally investigate or prosecute any alcohol or drug abuse patient.[facility] HospitalIn the event this information is protected by the Federal Confidentiality of Alcohol and Drug Abuse Patient Records regulations: The Federal rules restrict any use of the information to criminally investigate or prosecute any alcohol or drug abuse patient.[facility] HospitalIn the event this information is protected by the Federal Confidentiality of Alcohol and Drug Abuse Patient Records regulations: The Federal rules restrict any use of the information to criminally investigate or prosecute any alcohol or drug abuse patient.[facility] HospitalIn the event this information is protected by the Federal Confidentiality of Alcohol and Drug Abuse Patient Records regulations: The Federal rules restrict any use of the information to criminally investigate or prosecute any alcohol or drug abuse patient.[facility] HospitalIn the event this information is protected by the Federal Confidentiality of Alcohol and Drug Abuse Patient Records regulations: The Federal rules restrict any use of the information to criminally investigate or prosecute any alcohol or drug abuse patient.[facility] HospitalIn the event this information is protected by the Federal Confidentiality of Alcohol and Drug Abuse Patient Records regulations: The Federal rules restrict any use of the information to criminally investigate or prosecute any alcohol or drug abuse patient.[facility] HospitalIn the event this information is protected by the Federal Confidentiality of Alcohol and Drug Abuse Patient Records regulations: The Federal rules restrict any use of the information to criminally investigate or prosecute any alcohol or drug abuse patient.[facility] HospitalIn the event this information is protected by the Federal Confidentiality of Alcohol and Drug Abuse Patient Records regulations: The Federal rules restrict any use of the information to criminally investigate or prosecute any alcohol or drug abuse patient.[facility] HospitalIn the event this information is protected by the Federal Confidentiality of Alcohol and Drug Abuse Patient Records regulations: The Federal rules restrict any use of the information to criminally investigate or prosecute any alcohol or drug abuse patient.[facility] HospitalIn the event this information is protected by the Federal Confidentiality of Alcohol and Drug Abuse Patient Records regulations: The Federal rules restrict any use of the information to criminally investigate or prosecute any alcohol or drug abuse patient.[facility] HospitalIn the event this information is protected by the Federal Confidentiality of Alcohol and Drug Abuse Patient Records regulations: The Federal rules restrict any use of the information to criminally investigate or prosecute any alcohol or drug abuse patient.[facility] HospitalIn the event this information is protected by the Federal Confidentiality of Alcohol and Drug Abuse Patient Records regulations: The Federal rules restrict any use of the information to criminally investigate or prosecute any alcohol or drug abuse patient.[facility] HospitalIn the event this information is protected by the Federal Confidentiality of Alcohol and Drug Abuse Patient Records regulations: The Federal rules restrict any use of the information to criminally investigate or prosecute any alcohol or drug abuse patient.[facility] HospitalIn the event this information is protected by the Federal Confidentiality of Alcohol and Drug Abuse Patient Records regulations: The Federal rules restrict any use of the information to criminally investigate or prosecute any alcohol or drug abuse patient.[facility] HospitalIn the event this information is protected by the Federal Confidentiality of Alcohol and Drug Abuse Patient Records regulations: The Federal rules restrict any use of the information to criminally investigate or prosecute any alcohol or drug abuse patient.[facility] Care Teams (unrecognized sec tion and content) Button Spindler Relationship Specialty Start Date End Date Jennyfer Denise DO [address] [place] [address] PCP - General Family Practice 11/18/17 Mark Sanchez MD [address] [place], [place] [id number] Primary Staff Physician Cardiology 09/01/18 Button Spindler Relationship Specialty Start Date End Date Jennyfer Denise DO [address] [place] [address] PCP - General Family Practice 11/18/17 Mark Sanchez MD [address] [place] [address] Primary Staff Physician Cardiology 09/01/18 Button Spindler Relationship Specialty Start Date End Date Jennyfer Denise DO [address] [place] [address] PCP - General Family Practice 11/18/17 Mark Sanchez MD [address] [place] [address] Primary Staff Physician Cardiology 09/01/18 Button Spindler Relationship Specialty Start Date End Date Jennyfer Denise, DO [address] [place] [address] PCP - General Family Practice 11/18/17 Mark Sanchez MD [address] [place] [address] Primary Staff Physician Cardiology 09/01/18 Button Spindler Relationship Specialty Start Date End Date Jennyfer Denise, DO [address] [place] [address] PCP - General Family Practice 11/18/17 Mark Sanchez MD [address] [place] [address] Primary Staff Physician Cardiology 09/01/18 Button Spindler Relationship Specialty Start Date End Date Jennyfer Denise, DO [address] [place] [address] PCP - General Family Practice 11/18/17 Mark Sanchez MD [address] [place] [address] Primary Staff Physician Cardiology 09/01/18 Button Spindler Relationship Specialty Start Date End Date Jennyfer Denise DO [address] [place] [address] PCP - General Family Practice 11/18/17 Mark Sanchez MD [address] [place] [address] Primary Staff Physician Cardiology 09/01/18 Button Spindler Relationship Specialty Start Date End Date Jennyfer Denise DO [address] [place] [address] PCP - General Family Practice 11/18/17 Mark Sanchez MD [address] [place] [address] Primary Staff Physician Cardiology 09/01/18 Button Spindler Relationship Specialty Start Date End Date Jennyfer Denise DO [address] [place] [address] PCP - General Family Practice 11/18/17 Mark Sanchez MD [address] [place] [address] Primary Staff Physician Cardiology 09/01/18 Button Spindler Relationship Specialty Start Date End Date Jennyfer Denise DO [address] [place] [address] PCP - General Family Practice 11/18/17 Mark Sanchez MD [address] [place] [address] Primary Staff Physician Cardiology 09/01/18 Button Spindler Relationship Specialty Start Date End Date Jennyfer Denise DO [address] [place] [address] PCP - General Family Practice 11/18/17 Mark Sanchez MD [address] [place] [address] Primary Staff Physician Cardiology 09/01/18 Button Spindler Relationship Specialty Start Date End Date Jennyfer Denise DO [address] [place] [address] PCP - General Family Practice 11/18/17 Mark Sanchez MD [address] [place] [address] Primary Staff Physician Cardiology 09/01/18 Button Spindler Relationship Specialty Start Date End Date Jennyfer Denise DO [address] [place] [address] PCP - General Family Practice 11/18/17 Mark Sanchez MD [address] [place] [address] Primary Staff Physician Cardiology 09/01/18 Button Spindler Relationship Specialty Start Date End Date Jennyfer Denise, DO [address] [place] [address] PCP - General Family Medicine 11/18/17 Mark Sanchez MD [address] [place] [address] Primary Staff Physician Cardiology 09/01/18 Button Spindler Relationship Specialty Start Date End Date Jennyfer Denise DO [address] [place] [address] PCP - General Family Medicine 11/18/17 Mark Sanchez MD [address] [place] [address] Primary Staff Physician Cardiology 09/01/18 Button Spindler Relationship Specialty Start Date End Date Jennyfer Denise DO [address] [facility] [place] [address] PCP - General Family Medicine 11/18/17 Mark Sanchez MD [address] [place] [address] Primary Staff Physician Cardiology 09/01/18 Button Spindler Relationship Specialty Start Date End Date Jennyfer Denise DO [address] [place] [address] PCP - General Family Medicine 11/18/17 Mark Sanchez MD [address] [place] [address] Primary Staff Physician Cardiology 09/01/18 Button Spindler Relationship Specialty Start Date End Date Jennyfer Denise, DO [address] [place] [address] PCP - General Family Medicine 11/18/17 Mark Sanchez MD [address] [place] [address] Primary Staff Physician Cardiology 09/01/18 Button Spindler Relationship Specialty Start Date End Date Jennyfer Denise, DO [address] [place] [address] PCP - General Family Medicine 11/18/17 Mark Sanchez MD [address] [place] [address] Primary Staff Physician Cardiology 09/01/18 Button Spindler Relationship Specialty Start Date End Date Jennyfer Denise DO [address] [facility] [place] [address] PCP - General Family Medicine 11/18/17 Mark Sanchez MD [address] [place] [address] Primary Staff Physician Cardiology 09/01/18 Button Spindler Relationship Specialty Start Date End Date Jennyfer Denise DO [address] [facility] [place] [address] PCP - General Family Medicine 11/18/17 Mark Sanchez MD [address] [place] [address] Primary Staff Physician Cardiology 09/01/18 Button Spindler Relationship Specialty Start Date End Date Jennyfer Denise DO [address] [place] [address] PCP - General Family Medicine 11/18/17 Mark Sanchez MD [address] [place] [address] Primary Staff Physician Cardiology 09/01/18 Button Spindler Relationship Specialty Start Date End Date Jennyfer Denise, DO [address] [place] [address] PCP - General Family Medicine 11/18/17 Mark Sanchez MD [address] [place] [address] Primary Staff Physician Cardiology 09/01/18 Button Spindler Relationship Specialty Start Date End Date Jennyfer Denise, DO [address] [place] [address] PCP - General Family Medicine 11/18/17 Mark Sanchez MD [address] [place] [address] Primary Staff Physician Cardiology 09/01/18 Button Spindler Relationship Specialty Start Date End Date Jennyfer Denise, DO [address] [place] [address] PCP - General Family Medicine 11/18/17 Mark Sanchez MD [address] [place] [address] Primary Staff Physician Cardiology 09/01/18 Button Spindler Relationship Specialty Start Date End Date Jennyfer Denise, DO [address] [place] [address] PCP - General Family Medicine 11/18/17 Mark Sanchez MD [address] [place] [address] Primary Staff Physician Cardiology 09/01/18 Button Spindler Relationship Specialty Start Date End Date Jennyfer Denise, DO [address] [place] [address] PCP - General Family Medicine 11/18/17 Mark Sanhcez MD [address] [place] [address] Primary Staff Physician Cardiology 09/01/18 Button Spindler Relationship Specialty Start Date End Date Jennyfer Denise, DO [address] [place] [address] PCP - General Family Medicine 11/18/17 Mark Sanchez MD [address] [place] [address] Primary Staff Physician Cardiology 09/01/18 Button Spindler Relationship Specialty Start Date End Date Jennyfer Denise, DO [address] [facility] [place] [address] PCP - General Family Medicine 11/18/17 Mark Sanchez MD [address] [place] [address] Primary Staff Physician Cardiology 09/01/18 Button Spindler Relationship Specialty Start Date End Date Jennyfer Denise DO [address] [place] [address] PCP - General Family Medicine 11/18/17 Mark Sanchez MD [address] [place] [address] Primary Staff Physician Cardiology 09/01/18 Button Spindler Relationship Specialty Start Date End Date Jennyfer Denise, DO [address] [place] [address] PCP - General Family Medicine 11/18/17 Mark Sanchez MD [address] [place] [address] Primary Staff Physician Cardiology 09/01/18 Button Spindler Relationship Specialty Start Date End Date Jennyfer Denise DO [address] [place] [address] PCP - General Family Medicine 11/18/17 Mark Sanchez MD [address] [place], [place] [address] Primary Staff Physician Cardiology 09/01/18 Button Spindler Relationship Specialty Start Date End Date Jennyfer Denise DO [address] [place] [address] PCP - General Family Medicine 11/18/17 Mark Sanchez MD [address] [place], [place] [address] Primary Staff Physician Cardiology 09/01/18 Button Spindler Relationship Specialty Start Date End Date Jennyfer Denise [address] [place] [address] PCP - General 01/16/15 Button Spindler Relationship Specialty Start Date End Date Jennyfer Denise DO [address] [place] [address] PCP - General Family Medicine 11/18/17 Mark Sanchez MD [address] [place], [place] [address] Primary Staff Physician Cardiology 09/01/18 Button Spindler Relationship Specialty Start Date End Date Jennyfer Denise DO [address] [place] [address] PCP - General Family Medicine 11/18/17 Mark Sanchez MD [address] [place], [place] [address] Primary Staff Physician Cardiology 09/01/18 Button Spindler Relationship Specialty Start Date End Date Jennyfer Denise, DO [address] [place], [place] [address] PCP - General Family Medicine 11/18/17 Mark Sanchez MD [address] [place] [address] Primary Staff Physician Cardiology 09/01/18 Button Spindler Relationship Specialty Start Date End Date Jennyfer Denise DO [address] [place], [place] [address] PCP - General Family Medicine 11/18/17 Mark Sanchez MD [address] [place] [address] Primary Staff Physician Cardiology 09/01/18 Button Spindler Relationship Specialty Start Date End Date Jennyfer Denise DO [address] [place] [address] PCP - General Family Medicine 11/18/17 Mark Sanchez MD [address] [facility] [place] [address] Primary Staff Physician Cardiology 09/01/18 Reason for Visit (unrecogniz ed section and content) Specialty Diagnoses / Procedures Referred By Contac t Referred To Contact [facility] Diagnoses Diffuse connective tissue disease (HCC) ILD (interstitial lung disease) (HCC) Procedures SPIROMETRY WITH DILATOR IF OBSTRUCTED BRNCDILAT RSPSE SPMTRY PRE&POST-BRNCDILAT ADMN Gela Jordan, BARB.DIRECTOR HOME [address] [facility] [place] [place] [address] [facility] [place] [address] [place] [address] Referral ID Status Reason Start Date Expiration Date V isits Requested Visits Authorized [id number] Closed Auto-Generate d Referral 05/07/2022 06/06/2023 1 1 Specialty Diagnoses / Procedures Referred By Contac t Referred To Contact Allergy / PULMONARY MEDICINE Diagnoses ILD Procedures SPIROMETRY WITH DILATOR IF OBS Jose Walter MD [address] [place] [id number] [facility] [place] [address] [place] [address] Referral ID Status Reason Start Date Expiration Date V isits Requested Visits Authorized [id number] Pending Review 01/21/2022 04/21/2022 1 1 Reason Comments Infusion ruxience Specialty Diagnoses / Procedures Referred By Contac t Referred To Contact Diagnoses Other systemic lupus erythematosus with lung involvement (HCC) ILD (interstitial lung disease) (HCC) Inflammatory polyarthritis (HCC) Procedures INJ RUXIENCE, 10 MG Jose Walter MD [address] [facility] [place] [id number] Pul[facility] Main In[facility] [address] [place] [id number] Referral ID Status Reason Start Date Expiration Date V isits Requested Visits Authorized [id number] Authorized 03/27/2021 05/06/2022 6 6 Specialty Diagnoses / Procedures Referred By Contac t Referred To Contact [facility] Diagnoses ILD (interstitial lung disease) (HCC) Procedures OXIMETRY WITH AMBULATION NONINVASIVE EAR/PULSE OXIMETRY MULTIPLE DETER Gela Jordan, BARB.DIRECTOR HOME [address] [place] [address] [facility] [place] [address] [place] [address] Referral ID Status Reason Start Date Expiration Date V isits Requested Visits Authorized [id number] Closed Auto-Generate d Referral 07/30/2021 08/29/2022 1 1 Specialty Diagnoses / Procedures Referred By Contac t Referred To Contact [facility] Diagnoses ILD (interstitial lung disease) (HCC) Procedures LUNG DIFFUSION CAPACITY (DLCO) DIFFUSING CAPACITY Gela Jordan, BARB.DIRECTOR HOME [address] [address] Referral ID Status Reason Start Date Expiration Date V isits Requested Visits Authorized [id number] Closed Auto-Generate d Referral 07/30/2021 08/29/2022 1 1 Specialty Diagnoses / Procedures Referred By Contac t Referred To Contact [facility] Diagnoses ILD (interstitial lung disease) ([facility]) Procedures SPIROMETRY WITH DILATOR IF OBSTRUCTED BRNCDILAT RSPSE SPMTRY PRE&POST-BRNCDILAT ADMN Gela Jordan, INVENTORY TAKER.DIRECTOR HOME [address] [place] [id number] [place] [address] Referral ID Status Reason Start Date Expiration Date V isits Requested Visits Authorized [id number] Closed Auto-Generate d Referral 07/30/2021 08/29/2022 1 1 Reason Comments Schedule Injection Evusheld Injection Specialty Diagnoses / Procedures Referred By Contac t Referred To Contact Pulmonary Disease / PULMONARY INFUSION Diagnoses EVUSHELD Procedures NURSE IV INFUSION Gela Jordan, INVENTORY TAKER.DIRECTOR HOME [address] [place] [id number], Nurse IV Inf Chair [address] [place] [address] Referral ID Status Reason Start Date Expiration Date V isits Requested Visits Authorized [id number] Pending Review 09/05/2021 11/04/2021 1 1 Reason Comments Refill Request Reason Comments Recheck Reason Onset Date Comments Refill Request 09/24/2021 Reason Onset Date Comments Refill Request 10/07/2021 Specialty Diagnoses / Procedures Referred By Contac t Referred To Contact [facility] Diagnoses ILD (interstitial lung disease) (HCC) Procedures LUNG DIFFUSION CAPACITY (DLCO) DIFFUSING CAPACITY Jose Walter MD [address] [place] [address] Res[facility] [place] [address] [place], [place] [id number] Referral ID Status Reason Start Date Expiration Date V isits Requested Visits Authorized [id number] Closed Auto-Generate d Referral 05/22/2021 06/21/2022 1 1 Specialty Diagnoses / Procedures Referred By Contac t Referred To [facility] Diagnoses ILD (interstitial lung disease) (HCC) Procedures SPIROMETRY WITH DILATOR IF OBSTRUCTED SPIROMETRY BEFORE/AFTER BRONCHODILATORS Jose Walter MD [address] [place], [place] [id number] Res[facility] [place] [phone] Referral ID Status Reason Start Date Expiration Date V isits Requested Visits Authorized [id number] Closed Auto-Generate d Referral 05/22/2021 06/21/2022 1 1 Specialty Diagnoses / Procedures Referred By Contac t Referred To [facility] Diagnoses ILD (interstitial lung disease) ([facility]) Procedures SIX MINUTE WALK CARDIOPULMONARY EXERCISE STRESS Jose Walter MD [address] [place], [place] [phone] [place] [phone] Referral ID Status Reason Start Date Expiration Date V isits Requested Visits Authorized [id number] Closed Auto-Generate d Referral 05/22/2021 06/21/2022 1 1 Reason Comments Recheck Reason Onset Date Comments Refill Request 11/05/2021 Reason Comments Patient Update Reason Comments Infusion Ruxience (Rituximab) Reason Onset Date Comments Refill Request 12/11/2021 Specialty Diagnoses / Procedures Referred By Contac t Referred To [facility] Diagnoses Dyspnea and respiratory abnormalities Procedures SIX MINUTE WALK CARDIOPULMONARY [place] [address] [place] [address] [address] Referral ID Status Reason Start Date Expiration Date V isits Requested Visits Authorized [id number] Closed Auto-Generate d Referral 01/22/2022 11/21/2022 1 1 Reason Comments Recheck Specialty Diagnoses / Procedures Referred By Contac t Referred To [facility] Diagnoses Dyspnea and respiratory abnormalities Procedures SPIROMETRY WITH DILATOR IF OBSTRUCTED BRNCDILAT RSPSE SPMTRY PRE&POST-BRNCDILAT ADMN Jose Walter MD [address] [phone] [place] [address] Referral ID Status Reason Start Date Expiration Date V isits Requested Visits Authorized [id number] Closed Auto-Generate d Referral 01/22/2022 11/21/2022 1 1 Reason Comments Ear Problem Ear is clogged Reason Onset Date Comments Refill Request 02/25/2022 Reason Comments Recheck Reason Onset Date Comments Refill Request 05/28/2022 Reason Comments IV Medication Administration Definity Specialty Diagnoses / Procedures [facility] [place] Diagnoses Diffuse connective tissue disease (HCC) Dyspnea and respiratory abnormalities Procedures ECHO ECHO TTHRC R-T 2D W/WOM-MODE COMPL SPEC&COLR D Gela Jordan, BARB.DIRECTOR HOME [address] [phone] [facility] [place] [phone] Referral ID Status Reason Start Date Expiration Date V isits Requested Visits Authorized [id number] Closed Auto-Generate d Referral 05/07/2022 05/07/2023 1 1 Specialty Diagnoses / Procedures [facility] Diagnoses Diffuse connective tissue disease (HCC) ILD (interstitial lung disease) (HCC) Procedures LUNG DIFFUSION CAPACITY (DLCO) DIFFUSING CAPACITY Gela Jordan, BARB.DIRECTOR HOME [address] [address] [address] [address] Referral ID Status Reason Start Date Expiration Date V isits Requested Visits Authorized [id number] Closed Auto-Generate d Referral 05/07/2022 06/06/2023 1 1 Specialty Diagnoses / Procedures [facility] Diagnoses Diffuse connective tissue disease (HCC) ILD (interstitial lung disease) (HCC) Procedures SIX MINUTE WALK CARDIOPULMONARY EXERCISE STRESS Gela Jordan, BARB.DIRECTOR HOME [address] [address] Respiratory [place] [address] [place] [id number] Referral ID Status Reason Start Date Expiration Date V isits Requested Visits Authorized [id number] Closed Auto-Generate d Referral 05/07/2022 06/06/2023 1 1 Reason Comments Radio Gen A21 Specialty Diagnoses / Procedures Referred By [facility] Referred To Contact XR IMAGING Diagnoses Malaise and fatigue Procedures XR KNEE GENERAL 4V AP BOTH/PA BOTH/LAT/MERC BILATERAL RADIOLOGIC EXAM KNEE COMPLETE 4/MORE VIEWS Jose Walter MD [address] [place] [address] Xr Imaging Referral ID Status Reason Start Date Expiration Date V isits Requested Visits Authorized [id number] Closed Auto-Generate d Referral 08/07/2022 09/06/2023 1 1 Reason Comments Radio Gen A21 Specialty Diagnoses / Procedures Referred By [facility] Referred To Contact CT IMAGING Diagnoses Interstitial pulmonary disease (HCC) Procedures CT CHEST WO IVCON DIAGNOSTIC COMPUTED TOMOGRAPHY THORAX W/O CNTRST Jose Walter MD [address] [facility] [place] [address] Ct Imaging Referral ID Status Reason Start Date Expiration Date V isits Requested Visits Authorized [id number] Closed Auto-Generate d Referral 08/12/2022 09/26/2022 1 1 Reason Comments Recheck Reason Onset Date Comments Refill Request 08/27/2022 Reason Onset Date Comments Refill Request 09/18/2022 Referral ID Status Reason Start Date Expiration Date V isits Requested Visits Authorized [id number] Closed Auto-Generate d Referral 08/28/2022 09/27/2023 1 1 Referral ID Status Reason Start Date Expiration Date V isits Requested Visits Authorized [id number] Closed Auto-Generate d Referral 08/28/2022 09/27/2023 1 1 Specialty Diagnoses / Procedures Referred By [facility] Referred To [facility] Diagnoses ILD (interstitial lung disease) (HCC) Procedures SPIROMETRY WITH DILATOR IF OBSTRUCTED BRNCDILAT RSPSE SPMTRY PRE&POST-BRNCDILAT ADMN Jose Walter MD [address] [phone] [facility] [address] [place] [id number] Referral ID Status Reason Start Date Expiration Date V isits Requested Visits Authorized [id number] Closed Auto-Generate d Referral 08/28/2022 09/27/2023 1 1 Reason Comments MEDICATION PRIOR AUTHORIZATION ACTEM[employer] 1 62/0.9 / [place] APPROVED Specialty Diagnoses / Procedures Referred By [facility] Referred To Contact [facility] Diagnoses Inflammatory polyarthritis (HCC) ILD (interstitial lung disease) (HCC) Procedures SIX MINUTE WALK CARDIOPULMONARY EXERCISE STRESS Jose Walter MD [phone] [address] Referral ID Status Reason Start Date Expiration Date V isits Requested Visits Authorized [id number] Closed Auto-Generate d Referral 12/03/2022 01/02/2024 1 1 Reason Comments Follow Up Reason Comments Medication Authorization Scheduled Active and Recently Administ ered Medications (unrecognized section and content) (unrecognized sect ion and content) No Status Records FoundNo Status Records FoundNo Status Records Found INFORMATION SOURCE (unrecogn ized section and content) DATE CREATED AUTHOR AUTHOR'S ORGANIZ ATION 02/20/2023 [facility] DATE CREATED AUTHOR AUTHOR'S ORGANIZ ATION 06/21/2023 [facility] FOR RECORDS PERTAINING TO PATIENTS WHO ARE OR HAVE BEEN ENROLLED IN A CHEMICAL DEPENDENCY/SUBSTANCEABUSE PROGRAM, SOME INFORMATION MAY BE OMITTED. This clinical summary was aggregated from multiple sources. Caution should be exercised in using it in the provision of clinical care. This summary normalizes information from multiple sources, and as a consequence, information in this document may materially change the coding, format and clinical context of patient data. In addition, data may be omitted in some cases. CLINICAL DECISIONS SHOULD BE BASED ON THE PRIMARY CLINICAL RECORDS. [email or web address] provides no warranty or guarantee of the accuracy or completeness of information in this document.
[2023-06-25 15:37] LABS: Hematocrit 47.5 % (40-54); Hemoglobin 15.9 g/dL (13.0-16.5); Mean Corp Hgb Conc 33.5 g/dL (32-36); Mean Corpuscular Hgb 32.9 pg (27.0-32.0); Mean Corpuscular Volume 98.1 fL (80-94); Mean Platelet Vol. 11.6 fl (6.2-12.0); Platelet Count 229 K/mm3 (150-450); RBC Distribution Width CV 13.2 % (11.6-14.6); RBC Distribution Width SD 46.1 fl (35.1-43.9); Red Blood Count 4.84 M/mm3 (4.6-6.2); White Blood Count 6.1 K/mm3 (4.4-11.0)
[2023-06-25 16:32] LABS: ALB/GLOB Ratio 1.7 RATIO (0.9-2.4); AST(SGOT) 51 U/L (15-37); Alanine Aminotransfer ALT/SGPT 90 U/L (16-61); Albumin, Serum 4.5 g/dL (3.2-5.0); Alkaline Phosphatase 64 U/L (45-117); Anion Gap 4 (5-15); BUN 14 mg/dL (7-18); BUN/Creat Ratio 12.7 RATIO (10-20); Calcium,Total 8.7 mg/dL (8.5-10.1); Chloride 105 mmol/L (98-107); EST Glomerular Filtration Rate 74 mL/min (>60); Est Glom Filt Rate - Afr Amer 90 mL/min (>60); Globulin 2.7 g/dL (2.2-4.2); Glucose 119 mg/dL (74-106); Potassium 4.5 mmol/L (3.5-5.1); Protein, Total 7.2 g/dL (6.4-8.2); Sodium Level 138 mmol/L (136-145)
== END | disposition home or self-care (01) ==
LOC: BIMLAB 11:54
PROVIDERS: PCP Family Medicine; Referring Provider Family Medicine; Visit Provider Family Medicine
DX: D89.89 Other specified disorders involving the immune mechanism, not elsewhere classified (principal); E29.1 Testicular hypofunction
CPT/HCPCS: 36415; 80053; 84403; 85027

== ENCOUNTER → 2023-11-11 | Outpatient (CLI) | payer SELFPAY ==
--- NOTE | 2023-11-11 07:05 | CT_ITS ---
STUDY: CT CHEST WITHOUT CONTRAST REASON FOR EXAM: Male, 53 years old. Exertional dyspnea RADIATION DOSAGE (If Supplied By Facility): CTDIvol = ( 12.19 ) mGy, DLP = ( 268.17 ) mGycm TECHNIQUE: Transaxial imaging was performed without the administration of intravenous contrast material. Cardiac over read examination. Individualized dose optimization techniques were used for this CT. COMPARISON: No relevant priors. FINDINGS: CHEST Fibrocalcific scarring in the medial aspect of the left upper lobe most likely postsurgical in nature. There is no demonstrated pleural abnormality. There are calcifications of the coronary arteries. Normal mediastinum. Normal hilar regions. Normal unenhanced pulmonary arteries. There is atherosclerotic calcification of the aortic arch. Normal osseous structures. There is no demonstrated abnormality of the visualized upper abdomen. CT/Limited Chest CT Cardiac Only IMPRESSION: Coronary artery calcification. Postoperative scarring in the upper medial aspect of the left upper lobe. Electronically Signed: Avni Kyle MD at 15:09 EDT ,
--- NOTE | 2023-11-16 15:57 | CA.SCORE ---
Calcium Scoring Date of Study:: 11/11/23 Indications Indications: Exertional dyspnea family history Coronary Calcium Scoring: High-resolution Computed Tomographic imaging of the chest was performed on [11/11/2023], with particular attention paid to the coronary arteries. Images from the examination were analyzed for the presence and extent of coronary artery calcification , using coronary calcium quantification software. The patient tolerated the procedure well and there were no complications. The results of the coronary calcification analysis are provided below. Findings Coronary Artery Left Main (LM): 11.6 Left Anterior Descending (LAD): 0 Left Circumflex (LCX): 0 Right Coronary Artery (RCA): 0 Total Agatston Score: 11.6 Percentile Rankin to 50th percentile Calcium Scoring Interpretation: Different methods to categorize the overall amount of coronary plaque. Overall amount CAC SIS Visual of coronary plaque P1 Mild -100 <2 1-2 vessels with mild amount of plaque P2 Moderate 101-300 3-4 1-2 vessels with moderate amount, 3 vessels with mild amount of plaque P3 Severe 301-999 5-7 3 vessels with moderate amount, 1 vessel with severe amount of plaque P4 Extensive >1000 >8 2-3 vessels with severe amount of plaque Calcium Score: Mild: 1-2 vessels w/mild amount of plaque Conclusion: Mild amount of atherosclerotic plaquing in 1 vessel.
== END | disposition home or self-care (01) ==
PROVIDERS: PCP Family Medicine; Referring Provider Family Medicine; Visit Provider Family Medicine
DX: R06.09 Other forms of dyspnea (principal); Z82.49 Family history of ischemic heart disease and other diseases of the circulatory system
CPT/HCPCS: 75571; 76380

== ENCOUNTER → 2023-12-15 | Outpatient (CLI) | payer MEDICARE, SELFPAY | END | disposition home or self-care (01) | PROVIDERS: PCP Family Medicine; Referring Provider Family Medicine; Visit Provider Family Medicine | DX: R06.02 Shortness of breath (principal) | CPT/HCPCS: Q9957; A4216 ==

== ENCOUNTER → 2024-01-05 | Outpatient (CLI) | payer MEDICARE, SELFPAY ==
--- NOTE | 2024-01-05 10:35 | STRESSREP ---
Stress Test Report Exercise myocardial perfusion stress test. 53-year-old man with a history of chest pain Stress protocol: Resting EKG demonstrates normal sinus rhythm with a rate of 74 bpm resting blood pressure is 138/90 mmHg. The patient exercised according to the regular Mehrdad protocol for a total duration of 5 minutes attaining a maximum heart rate of 151 bpm which was 90% of maximum predicted heart rate; the maximum workload was 7 metabolic equivalents. At rest there were no ST or T wave changes noted to suggest ischemia and at peak exercise upsloping ST changes only were noted which did not meet the criteria for ischemia. No clinical angina was noted the test was terminated due to the target heart rate being achieved/fatigue. The peak blood pressure was 184/92 mmHg. Rate-pressure product was 20,800. Myocardial perfusion protocol. 14.8 mCi of technetium 99m sestamibi was injected at rest. The patient exercised according to regular Mehrdad protocol for total duration of 5 minutes and at peak exercise 44.7 mCi of technetium 99m sestamibi was injected stress images were obtained stress and rest images were reconstructed in comparing the short axis vertical long and horizontal long axis. Gated images were also obtained. Perfusion SPECT analysis: Review of the stress images demonstrate normal uptake of tracer noted in all areas of the myocardium. The resting images similarly demonstrate normal uptake of tracer noted in all areas of the myocardium. No areas of reversibility are noted to suggest ischemia no previous infarct was noted. Gated SPECT analysis: The gated ejection fraction is 59%. Conclusion: Normal exercise myocardial perfusion stress test at a moderate workload Preserved ejection fraction.
== END | disposition home or self-care (01) ==
LOC: CVS 06:03
PROVIDERS: PCP Family Medicine; Referring Provider Family Medicine; Visit Provider Family Medicine
DX: R06.00 Dyspnea, unspecified (principal)
CPT/HCPCS: 78452; 93017; A9500; A4216

== ENCOUNTER → 2024-01-06 | Outpatient (CLI) | payer MEDICARE, SELFPAY ==
[2024-01-06 11:52] LABS: Absolute Lymphocyte Count 1.42 X10^3/uL (0.83-4.51); Absolute Neutrophil Count 4.1 X10^3/uL (2.0-7.7); Basophil# 0.03 X10^3/uL; Basophil% 0.5 % (0-1); Eosinophil# 0.06 X10^3/uL; Hematocrit 46.3 % (40-54); Lymphocyte # 1.42 X10^3/ul (0.83-4.51); Lymphocyte % 23.3 % (19-41); Mean Corp Hgb Conc 34.6 g/dL (32-36); Mean Corpuscular Hgb 32.8 pg (27.0-32.0); Mean Corpuscular Volume 94.9 fL (80-94); Mean Platelet Vol. 11.5 fl (6.2-12.0); Monocyte# 0.45 X10^3/uL; Monocyte% 7.4 % (0-10); NRBC Flagged by Analyzer 0 % (0-5); Neutrophil # 4.12 X10^3/uL (2.7-7.7); Neutrophil % 67.5 % (47-70); Platelet Count 220 K/mm3 (150-450); RBC Distribution Width CV 12.5 % (11.6-14.6); RBC Distribution Width SD 43.6 fl (35.1-43.9); Red Blood Count 4.88 M/mm3 (4.6-6.2); White Blood Count 6.1 K/mm3 (4.4-11.0)
[2024-01-06 12:52] LABS: ALB/GLOB Ratio 1.5 RATIO (0.9-2.4); AST(SGOT) 56 U/L (15-37); Alanine Aminotransfer ALT/SGPT 74 U/L (16-61); Albumin, Serum 4.6 g/dL (3.2-5.0); Alkaline Phosphatase 62 U/L (45-117); Anion Gap 8 (5-15); BUN 18 mg/dL (7-18); BUN/Creat Ratio 16.5 RATIO (10-20); Calcium,Total 9.5 mg/dL (8.5-10.1); Chloride 103 mmol/L (98-107); Cholesterol 292 mg/dL (200); Creatinine, Serum 1.09 mg/dL (0.70-1.30); EST Glomerular Filtration Rate 75 mL/min (>60); Est Glom Filt Rate - Afr Amer 90 mL/min (>60); Globulin 3.1 g/dL (2.2-4.2); Glucose 94 mg/dL (74-106); High Density Lipoprotein 62 mg/dL; Potassium 4.6 mmol/L (3.5-5.1); Protein, Total 7.7 g/dL (6.4-8.2); Sodium Level 137 mmol/L (136-145); Triglycerides 245 mg/dL; Very Low Density Lipoprotein 49 mg/dL (5-40)
== END | disposition home or self-care (01) ==
LOC: BIMLAB 09:42
PROVIDERS: PCP Family Medicine; Referring Provider Family Medicine; Visit Provider Family Medicine
DX: E78.2 Mixed hyperlipidemia (principal); I10 Essential (primary) hypertension
CPT/HCPCS: 36415; 80053; 80061; 84403; 85025

== ENCOUNTER → 2024-07-14 | Outpatient (CLI) | payer MEDICARE, SELFPAY ==
[2024-07-14 12:23] LABS: Absolute Lymphocyte Count 1.07 X10^3/uL (0.83-4.51); Absolute Neutrophil Count 3.6 X10^3/uL (2.0-7.7); Basophil# 0.02 X10^3/uL; Basophil% 0.4 % (0-1); Eosinophil# 0.03 X10^3/uL; Eosinophils% 0.6 % (0-5); Hemoglobin 15.7 g/dL (13.0-16.5); Lymphocyte # 1.07 X10^3/ul (0.83-4.51); Lymphocyte % 20.9 % (19-41); Mean Corp Hgb Conc 34.1 g/dL (32-36); Mean Corpuscular Hgb 32.2 pg (27.0-32.0); Mean Corpuscular Volume 94.5 fL (80-94); Mean Platelet Vol. 10.5 fl (6.2-12.0); Monocyte# 0.41 X10^3/uL; NRBC Flagged by Analyzer 0 % (0-5); Neutrophil # 3.55 X10^3/uL (2.7-7.7); Neutrophil % 69.5 % (47-70); Platelet Count 311 K/mm3 (150-450); RBC Distribution Width SD 45.4 fl (35.1-43.9); Red Blood Count 4.87 M/mm3 (4.6-6.2); White Blood Count 5.1 K/mm3 (4.4-11.0)
== END | disposition home or self-care (01) ==
LOC: BIMLAB 09:27
PROVIDERS: PCP Family Medicine; Visit Provider Family Medicine
DX: E29.1 Testicular hypofunction (principal)
CPT/HCPCS: 36415; 84403; 85025

== ENCOUNTER → 2025-01-14 | Outpatient (CLI) | payer MEDICARE, SELFPAY ==
[2025-01-14 12:30] LABS: Hematocrit 48.4 % (40-54); Hemoglobin 16.6 g/dL (13.0-16.5); Immature Granulocytes Count 0.040 X10^3/uL (0.0-0.0); Mean Corp Hgb Conc 34.3 g/dL (32-36); Mean Corpuscular Volume 90.6 fL (80-94); Mean Platelet Vol. 11.2 fl (6.2-12.0); NRBC Flagged by Analyzer 0 % (0-5); Platelet Count 252 K/mm3 (150-450); RBC Distribution Width CV 13.5 % (11.6-14.6); RBC Distribution Width SD 45.3 fl (35.1-43.9); Red Blood Count 5.34 M/mm3 (4.6-6.2); White Blood Count 8.6 K/mm3 (4.4-11.0)
[2025-01-14 12:56] LABS: AST(SGOT) 43 U/L (<=37); Alanine Aminotransfer ALT/SGPT 54 U/L (<=46); Albumin, Serum 4.8 g/dL (3.5-5.0); Alkaline Phosphatase 84 U/L (40-129); Anion Gap 11 (5-15); BUN 13 mg/dL (4-19); BUN/Creat Ratio 12.9 RATIO (10-20); Calcium,Total 9.5 mg/dL (7.6-11.0); Carbon Dioxide 27.7 mmol/L (21.0-32.0); Chloride 101 mmol/L (98-108); Cholesterol 186 mg/dL (<=200); Globulin 2.7 g/dL (2.2-4.2); Glucose 101 mg/dL (70-99); Low Density Lipoprotein Calc. 106 mg/dL; Potassium 5.2 mmol/L (3.3-5.1); Triglycerides 133 mg/dL; Very Low Density Lipoprotein 27 mg/dL (5-40); cholesterol:hdl ratio screen 3.48
== END | disposition home or self-care (01) ==
LOC: BIMLAB 10:33
PROVIDERS: PCP Family Medicine; Referring Provider Family Medicine; Visit Provider Family Medicine
DX: E29.1 Testicular hypofunction (principal); E78.5 Hyperlipidemia, unspecified
CPT/HCPCS: 36415; 80053; 80061; 84403; 85025

== ENCOUNTER → 2025-02-08 | Outpatient (CLI) | payer MEDICARE, SELFPAY ==
[2025-02-08 13:11] LABS: AST(SGOT) 46 U/L (<=37); Alanine Aminotransfer ALT/SGPT 71 U/L (<=46); Albumin, Serum 4.8 g/dL (3.5-5.0); Alkaline Phosphatase 80 U/L (40-129); Anion Gap 14 (5-15); BUN 12 mg/dL (4-19); BUN/Creat Ratio 11.9 RATIO (10-20); Calcium,Total 9.6 mg/dL (7.6-11.0); Carbon Dioxide 24.6 mmol/L (21.0-32.0); Chloride 101 mmol/L (98-108); Globulin 2.8 g/dL (2.2-4.2); Glucose 99 mg/dL (70-99); Potassium 4.7 mmol/L (3.3-5.1)
== END | disposition home or self-care (01) ==
LOC: BIMLAB 09:54
PROVIDERS: Physician Assistant; PCP Family Medicine; Visit Provider Family Medicine
DX: E87.5 Hyperkalemia (principal)
CPT/HCPCS: 36415; 80053